=== PATIENT | male | born 1955 | race Caucasian/White ===

== ENCOUNTER → 2016-04-13 | Day surgery (SDC) | payer BC ==
[2016-04-02 13:19] VITALS: Ht 189.2 cm; Wt 131.4 kg
[~2016-04-13] VITALS: Ht 189.2 cm; Wt 131.4 kg
[~2016-04-13] MED LIST: ALLO300T2 PO; ATROPINE SULFATE 0.1 MG/ML 5ML SYR IV PRN; BUPIVACAINE/EPINEPHRINE 0.5% MPF 1:200,000 30 ML VIAL ONE; CEFAZOLIN 2000 MG/60 ML D5W IV SCH; CETI10TA99 PO; DEXAMETHASONE SOD INJ 4 MG/ML VIAL IV PRN; DEXAMETHASONE SOD INJ 4 MG/ML VIAL ONE; DOXA4TAB2 PO; EpHEDrine SULFATE INJ 50 MG/ML AMP IV PRN; FENTANYL CITRATE INJ 50 MCG/1 ML 2 ML VIAL IV PRN; FENTANYL CITRATE INJ 50 MCG/1 ML 2 ML VIAL ONE; FLUT0.15 NAE; GLUC10007 PO; GLYCOPYRROLATE INJ 0.2 MG/ML VIAL ONE; HEPARIN SOD 5000 UNIT/0.5 ML CARP SQ SCH; HYDR-5688 PO; HYDROCODONE/ACETAMOPHEN 5/325MG TAB PO PRN; IBUPROFEN 600 MG TAB PO PRN; INDO-24 PO; KETOROLAC TROMETHAMINE 30 MG/ML VIAL IV. PRN; LABETALOL HCL IV 5 MG/ML 20ML IV PRN; LACTATED RINGER'S 1000ML 1,000 ML IV SCH; LIDOCAINE HCL 1% 20 ML VIAL ONE; LIDOCAINE HCL 2% 2 ML VIAL (20MG/ML) ONE; LOVA40TA4 PO; METF500T5 PO; METOCLOPRAMIDE HCL INJ 5 MG/ML 2 ML VIAL IV PRN; MIDAZOLAM HCL 1 MG/ML 2ML VIAL ONE; MULT-506 PO; MoRPHine SULFATE 10 MG/ML CARP/VIAL IV PRN; MoRPHine SULFATE 4 MG/ML 1 ML CARP\\VIAL IV PRN; ONDANSETRON INJ 2 MG/ML 2 ML VIAL IV PRN; ONDANSETRON INJ 2 MG/ML 2 ML VIAL ONE; OXYCODONE/ACETAMINOPHEN 5-325 TAB PO PRN; PHENYLEPHRINE 100MCG/ML 5ML SYR IV PRN; PHENYLEPHRINE HCL INJ 10 MG/ML VIAL ONE; PRLSR20 PO; PROPOFOL IV EMULSION 10 MG/ML 20 ML VIAL IV ONE; ROCURONIUM BROMIDE 10 MG/ML 5 ML VIAL ONE; SODIUM CHLORIDE 0.9% 1000ML 1,000 ML IV SCH; TRMO2580 TOP
--- NOTE | 2016-04-13 11:11 | History & Physical Bridge Note ---
H&P Re-Evaluation Bridge Note: I have examined the patient, reviewed the History & Physical and in the interval since the performance of the History & Physical I have noted the following changes of clinical significance: No changes noted
--- NOTE | 2016-04-13 11:14 | Discharge Instructions-SurgCtr ---
Discharge Instructions Visit Reason for Visit: Umbilical Hernia Discharge Discharge Diagnosis / Problem: umbilical hernia Discharge Goals Goal(s): Decrease discomfort, Improve function Medications Stopped Medications Name(s): Metformin stopped. Last dose saturday04/10/16 Activity Recommendations Activity Limitations: as noted below Lifting Limitations: no more than 10 pounds Exercise/Sports Limitations: until after follow-up appointment May Resume Sexual Activity: after follow-up appointment Shower/Bathe: tomorrow Anesthesia . Post Anesthesia Instructions: If you have had General Anesthesia or IV Sedation: * Do not drive today. * Resume driving when surgeon permits. * Do not make important decisions or sign legal documents today. * Call surgeon for: 1. Temperature elevations greater than 101 degrees F. 2. Uncontrollable pain. 3. Excessive bleeding. 4. Persistent nausea and vomiting. 5. Medication intolerance (nausea, vomiting or rash). * For nausea and vomiting use only clear liquids such as: tea, soda, bouillon until nausea subsides, then gradually increase diet as tolerated. * If you have any concerns or questions, call your surgeon's office. If physician is unavailable and it is an emergency, call 911 or go to the nearest emergency room. . Instructions / Follow-Up Instructions / Follow-Up follow up Dr. Schrader in 1-2 weeks. Diet Recommendations Home Diet: resume previous diet Pending Studies Studies pending at discharge: no Medical Emergencies . Who to Call and When: Medical Emergencies: If at any time you feel your situation is an emergency, please call 911 immediately. . Non-Emergent Contact Non-Emergency issues call your: Primary Care Provider, Surgeon Call Non-Emergent contact if: temperature is above 101, wound has increased drainage, wound has increased redness, wound has increased pain . . "Provider Documentation" section prepared by Antoine Schrader.
--- NOTE | 2016-04-13 11:15 | [facility] Operative Report ---
Operative Report Operative Date Apr 13, 2016. Pre-Operative Diagnosis umbilical hernia Post-Operative Diagnosis same Procedure(s) Performed open umbilical hernia Findings standard umbilical hernia with omentum incarcerated Anesthesia general Complication(s) None Disposition Recovery Room / PACU I attest to the content of the Intraoperative Record and any orders documented therein. Any exceptions are noted below.
[2016-04-13 13:16] VITALS: TEMP 36.6
--- NOTE | 2016-04-13 13:18 | Anesthesia Progress Nt - [facility] ---
Anesthesia Post Op Note Date & Time Apr 13, 2016 at 13:17 Vital Signs Pain Intensity: 5 Vital Signs Past 12 Hours Date Time Temp Pulse Resp B/P Pulse Ox O2 Delivery O2 Flow Rate FiO2 04/13/16 13:04 36.4 04/13/16 13:03 111/64 04/13/16 13:00 65 15 93 04/13/16 13:00 62 13 97 04/13/16 12:58 Room Air 04/13/16 12:58 104/61 04/13/16 12:55 70 22 04/13/16 12:55 71 22 100 04/13/16 12:53 109/67 04/13/16 12:49 Diffusion Mask 6 04/13/16 12:48 111/62 04/13/16 12:45 72 12 94 04/13/16 12:45 68 17 91 04/13/16 12:43 101/61 04/13/16 12:41 110/59 04/13/16 12:40 68 9 04/13/16 12:40 68 9 96 04/13/16 12:38 99/62 04/13/16 12:33 106/63 04/13/16 12:30 Room Air 04/13/16 12:30 65 14 95 04/13/16 12:30 59 22 95 04/13/16 12:28 110/65 04/13/16 12:26 107/62 04/13/16 12:25 69 10 04/13/16 12:25 69 10 92 04/13/16 12:23 96/62 04/13/16 12:18 91/59 04/13/16 12:17 98/58 04/13/16 12:15 71 15 102/62 91 04/13/16 12:15 69 14 90 04/13/16 12:10 36.8 72 16 102/62 94 Diffusion Mask 6 04/13/16 10:31 36.8 79 18 142/86 96 Room Air Notes Mental Status: alert / awake / arousable, participated in evaluation Pt Amnestic to Procedure: Yes Nausea / Vomiting: adequately controlled Pain: adequately controlled Airway Patency, RR, SpO2: stable & adequate BP & HR: stable & adequate Hydration State: stable & adequate Anesthetic Complications: no major complications apparent
[2016-04-13 14:06] VITALS: BP 120/72; PULSE 73; O2SAT 95
--- NOTE | 2016-04-13 14:18 | OPERATIVE REPORT ---
DATE OF OPERATION: 04/13/2016 PREOPERATIVE DIAGNOSIS: Symptomatic umbilical hernia. POSTOPERATIVE DIAGNOSIS: Same. PROCEDURE PERFORMED: Open umbilical hernia repair without mesh. SURGEON: Dr. Schrader. ESTIMATED BLOOD LOSS: Approximately 40 mL. COMPLICATIONS: No immediate complications. ANESTHESIA: General. The patient tolerated the procedure well. OPERATION AND FINDINGS: OPERATIVE NOTE: After informed consent was obtained, the patient was taken to the operating suite, placed in supine position. After successful intubation, the abdomen was sterilely prepped and draped in usual fashion. Curvilinear infraumbilical incision was made with 15 blade scalpel and carried down through the soft tissue using electrocautery. Once we opened the skin a small about 1.5 cm defect was palpated. I used Gabriela clamp to come around the umbilicus. I then detached the umbilicus from underlying fascia including dividing the hernia sac at the same time. This allowed us to get good margins on the fascia. There was omental incarcerated within the hernia. I freed this up using electrocautery as well as some blunt finger dissection. When we did this, there was some bleeding of the omentum. I had to clamp this and tie it off with a 2-0 Vicryl tie. Once we did this, there was adequate hemostasis. We dunked the omentum back down into the abdominal cavity. Thorough irrigation was performed. Because of the size of the defect, I decided it would not be necessary to place the mesh. I used a #1 Ethibond in an interrupted [id number] fashion to primarily close the defect. It was relatively tension free. I then tacked the umbilicus back to the underlying fascia using 0 Vicryl. Soft tissue was irrigated and closed using 2-0 Vicryl for the deep layers and 4-0 Monocryl for the skin. Marcaine was injected around the incisions for postoperative analgesia. Skin glue and a sterile dressing were applied. The patient was awakened, extubated, and transferred to recovery in stable condition. I attest to the content of the Intraoperative Record and any orders documented therein. Any exceptio ns are noted below.
== END | disposition home or self-care (01) ==
LOC: X.SURG 09:43
PROVIDERS: ATTEND Surgery
DX: K42.0 Umbilical hernia with obstruction, without gangrene (principal); R79.89 Other specified abnormal findings of blood chemistry; E11.9 Type 2 diabetes mellitus without complications; E78.00 Pure hypercholesterolemia, unspecified; N40.0 Benign prostatic hyperplasia without lower urinary tract symptoms

== ENCOUNTER → 2016-07-24 | Outpatient (CLI) | payer BC ==
[~2016-07-24] MED LIST changes: -ATROPINE SULFATE 0.1 MG/ML 5ML SYR IV PRN; -BUPIVACAINE/EPINEPHRINE 0.5% MPF 1:200,000 30 ML VIAL ONE; -CEFAZOLIN 2000 MG/60 ML D5W IV SCH; -DEXAMETHASONE SOD INJ 4 MG/ML VIAL IV PRN; -DEXAMETHASONE SOD INJ 4 MG/ML VIAL ONE; -EpHEDrine SULFATE INJ 50 MG/ML AMP IV PRN; -FENTANYL CITRATE INJ 50 MCG/1 ML 2 ML VIAL IV PRN; -FENTANYL CITRATE INJ 50 MCG/1 ML 2 ML VIAL ONE; -GLYCOPYRROLATE INJ 0.2 MG/ML VIAL ONE; -HEPARIN SOD 5000 UNIT/0.5 ML CARP SQ SCH; -HYDROCODONE/ACETAMOPHEN 5/325MG TAB PO PRN; -IBUPROFEN 600 MG TAB PO PRN; -KETOROLAC TROMETHAMINE 30 MG/ML VIAL IV. PRN; -LABETALOL HCL IV 5 MG/ML 20ML IV PRN; -LACTATED RINGER'S 1000ML 1,000 ML IV SCH; -LIDOCAINE HCL 1% 20 ML VIAL ONE; -LIDOCAINE HCL 2% 2 ML VIAL (20MG/ML) ONE; -METOCLOPRAMIDE HCL INJ 5 MG/ML 2 ML VIAL IV PRN; -MIDAZOLAM HCL 1 MG/ML 2ML VIAL ONE; -MoRPHine SULFATE 10 MG/ML CARP/VIAL IV PRN; -MoRPHine SULFATE 4 MG/ML 1 ML CARP\\VIAL IV PRN; -ONDANSETRON INJ 2 MG/ML 2 ML VIAL IV PRN; -ONDANSETRON INJ 2 MG/ML 2 ML VIAL ONE; -OXYCODONE/ACETAMINOPHEN 5-325 TAB PO PRN; -PHENYLEPHRINE 100MCG/ML 5ML SYR IV PRN; -PHENYLEPHRINE HCL INJ 10 MG/ML VIAL ONE; -PROPOFOL IV EMULSION 10 MG/ML 20 ML VIAL IV ONE; -ROCURONIUM BROMIDE 10 MG/ML 5 ML VIAL ONE; -SODIUM CHLORIDE 0.9% 1000ML 1,000 ML IV SCH
[2016-07-24 12:18] LABS: ALT/SGPT 74 U/L (12-78); AST/SGOT 64 U/L (15-37); BASO % 0.8 %; BASO ABS # 0.03 K/uL (0-0.2); BLOOD UREA NITROGEN 16 mg/dl (7-18); BUN/CREATININE RATIO 15.5 (10-20); CALCIUM 9.6 mg/dl (8.5-10.1); CARBON DIOXIDE 29 mmol/L (21-32); CHLORIDE 106 mmol/L (98-107); COMPLETE YES; EOS % 9.5 %; GLUCOSE 120 mg/dl (70-99); HEMATOCRIT 40.3 % (42-52); IG% 0.3 %; LYMPH % 34.2 %; LYMPH ABS # 1.22 K/uL (1.2-3.4); MEAN CORPUSCULAR HEMOGLOBIN 32.9 pg (25-34); MEAN CORPUSCULAR HGB CONC 32.3 g/dl (32-36); MEAN PLATELET VOLUME 11.1 fL (7.4-10.4); NEUT % 50.2 %; PLATELET COUNT 139 K/uL (130-400); POTASSIUM 4.7 mmol/L (3.5-5.1); RED BLOOD COUNT 3.95 M/uL (4.7-6.1); SODIUM 141 mmol/L (136-145); WHITE BLOOD COUNT 3.57 K/uL (4.8-10.8)
[2016-07-24 12:20] LABS: ALB/GLOB RATIO 0.7 (0.9-2); ALKALINE PHOSPHATASE 128 U/L (45-117)
[2016-07-24 12:24] LABS: ESTIMATED AVERAGE GLUCOSE 120 mg/dl; HA1C FLAG Normal (Normal)
[2016-07-26 08:16] LABS: ALBUMIN 3.6 G/DL (3.8-4.8); IMMUNOFIXATION IGA SERUM 391 MG/DL (81-463); IMMUNOFIXATION IGG SERUM 2193 MG/DL (694-1618); IMMUNOFIXATION IGM SERUM 102 MG/DL (48-271); TOTAL PROTEIN 7.8 G/DL (6.2-8.3)
== END | disposition home or self-care (01) ==
LOC: C.LABBFT 09:31
PROVIDERS: ATTEND Internal Medicine Hematology & Oncology
DX: D61.818 Other pancytopenia (principal)

== ENCOUNTER → 2016-10-12 | Day surgery (SDC) | payer BC ==
[2016-10-02 08:38] VITALS: Ht 189.2 cm; Wt 127.3 kg
[~2016-10-12] VITALS: Ht 189.2 cm; Wt 127.3 kg
[~2016-10-12] MED LIST changes: -HYDR-5688 PO; -INDO-24 PO; +LIDOCAINE HCL 2% 2 ML VIAL (20MG/ML) ONE; +PROPOFOL IV EMULSION 10 MG/ML 20 ML VIAL IV ONE; +SODIUM CHLORIDE 0.9% 500ML 500 ML IV ONE; -TRMO2580 TOP
[2016-10-12 08:29] VITALS: TEMP 37.1
--- NOTE | 2016-10-12 08:39 | Endo History and Physical ---
History & Physical Date of Service: Oct 12, 2016. Chief Complaint: f/u tubular adenoma Referring Physician: Dr. sada Polk,and Dr. Jeffrey Adams History of Present Illness 61 yo CM who presents for colonoscopy secondary to history of colon polyps. Past Surgical History Hx Cardiac Surgery: No Hx Internal Defibrillator: No Hx Pacemaker: No Hx Abdominal Surgery: Yes (APPY, UMBILICAL HERNIA REPAIR) Hx of Implantable Prosthesis: No Hx Post-Op Nausea and Vomiting: No Hx Cancer Surgery: No Hx Thoracic Surgery: No Hx Orthopedic: Yes (LT ACHILLES TENDON REPAIR) Hx Urinary Tract Surgery: No Family History Colon CA Social History Smoking Status: Former Smoker Hx Substance Use: No Hx Alcohol Use: Yes (OCCASIONAL) Allergies Coded Allergies: Simvastatin (Verified Allergy, Unknown, GI UPSET, 10/02/16) Current Medications Reported Home Medications Medications Dose Route/Sig Max Daily Dose Days Date Category Flonase Allergy Relief (Fluticasone Propionate (Nasal)) 50 Mcg/Act Spr 2 [place] DENICE DAILY PRN 10/02/16 Reported Glucosamine (Glucosamine Sulfate) 1,000 Mg Tab 1,500 Mg PO DAILY 04/13/16 Reported Multivitamin (Multivitamins) Tab 1 Tab PO DAILY 04/13/16 Reported Zyrtec Allergy (Cetirizine Hcl) 10 Mg Tab 1 Tab PO DAILY PRN 04/02/16 Reported Mevacor (Lovastatin) 40 Mg Tab 2 Tabs PO HS 04/02/16 Reported Prilosec (Omeprazole) 20 Mg Capcr 20 Mg PO NOON 04/02/16 Reported Zyloprim (Allopurinol) 300 Mg Tab 300 Mg PO NOON 04/02/16 Reported Glucophage Er (Metformin HCl) 500 Mg Tab 2 Tab PO BID 04/02/16 Reported Cardura (Doxazosin Mesylate) 4 Mg Tab 4 Mg PO HS 04/02/16 Reported Vital Signs Weight (Kilograms): 127.27 Height (Feet): 6 Height (Inches): 2.5 Date Time Temp Pulse Resp B/P (MAP) Pulse Ox O2 Delivery O2 Flow Rate FiO2 10/12/16 08:29 37.1 87 20 137/78 (97) 94 Room Air Physical Exam General Appearance: WD/WN, no apparent distress Respiratory/Chest: Auscultation: breath sounds normal Cardiovascular: Heart Auscultation: RRR Abdomen: Bowel Sounds: normal Inspection & Palpation: soft, non-distended, no tenderness, guarding & rebound Assessment and Plan Assessment: 61 yo CM who presents for colonoscopy secondary to history of colon polyps. Plan: Proceed with colonoscopy.
--- NOTE | 2016-10-12 09:25 | Anesthesiology Progress Note ---
Anesthesia Post Op Note Date & Time Oct 12, 2016 at 09:24 Vital Signs Pain Intensity: 0 Vital Signs Past 12 Hours Date Time Temp Pulse Resp B/P (MAP) Pulse Ox O2 Delivery O2 Flow Rate FiO2 10/12/16 08:29 37.1 87 20 137/78 (97) 94 Room Air Notes Mental Status: alert / awake / arousable, participated in evaluation Pt Amnestic to Procedure: Yes Nausea / Vomiting: adequately controlled Pain: adequately controlled Airway Patency, RR, SpO2: stable & adequate BP & HR: stable & adequate Hydration State: stable & adequate Anesthetic Complications: no major complications apparent
--- NOTE | 2016-10-12 09:26 | Discharge Instructions ---
Endoscopy Patient Instructions Date / Procedure(s) Performed Oct 12, 2016. Colonoscopy Allergy Information Coded Allergies: Simvastatin (Verified Adverse Reaction, Unknown, GI UPSET, 10/12/16) Discharge Date / Findings Oct 12, 2016. Colon polyps Internal hemorrhoids Medication Instructions Stopped Medication(s): took Metformin yesterday OK to resume all medications today as prescribed Reported Home Medications Medications Dose Route/Sig Max Daily Dose Days Date Category Flonase Allergy Relief (Fluticasone Propionate (Nasal)) 50 Mcg/Act Spr 2 [place] DENICE DAILY PRN 10/02/16 Reported Glucosamine (Glucosamine Sulfate) 1,000 Mg Tab 1,500 Mg PO DAILY 04/13/16 Reported Multivitamin (Multivitamins) Tab 1 Tab PO DAILY 04/13/16 Reported Zyrtec Allergy (Cetirizine Hcl) 10 Mg Tab 1 Tab PO DAILY PRN 04/02/16 Reported Mevacor (Lovastatin) 40 Mg Tab 2 Tabs PO HS 04/02/16 Reported Prilosec (Omeprazole) 20 Mg Capcr 20 Mg PO NOON 04/02/16 Reported Zyloprim (Allopurinol) 300 Mg Tab 300 Mg PO NOON 04/02/16 Reported Glucophage Er (Metformin HCl) 500 Mg Tab 2 Tab PO BID 04/02/16 Reported Cardura (Doxazosin Mesylate) 4 Mg Tab 4 Mg PO HS 04/02/16 Reported Provider Instructions Activity Restrictions - No exercising or heavy lifting for 24 hours. - Do not drink alcohol the day of the procedure. - Do not drive a car or operate machinery until the day after the procedure. - Do not make any important decisions or sign important papers in 24 hours after the procedure. Following Day: - Return to full activity which may include returning to work/school. Diet Start your diet with liquids and light foods (jello, soup, juice, toast). Then eat your usual diet if not nauseated. Treatment For Common After Affects For mild abdominal pain, bloating, or excessive gas: - Rest - Eat lightly - Lie on right side Follow-Up Information Follow-up with Dr. sada Polk,and Dr. Jeffrey Adams as scheduled Anesthesia Information What You Should Know You have had a procedure that required some medicine to reduce anxiety and discomfort. This treatment is called moderate sedation. After receiving the treatment, you may be sleepy, but you will be able to breathe on your own. The effects of the treatment may last for several hours. Follow these instructions along with Activity/Diet recommendations noted above: * Do NOT do anything where dizziness or clumsiness would be dangerous. * Rest quietly at home today, then you can be up and about tomorrow. * Have a responsible person stay with you the rest of today. * You may have had an I.V. today. If so, you may take the dressing off later today. Recommendations Call your doctor if: * Trouble breathing * Continuous vomiting for more than 24 hours * Temperature above 101 degrees * Severe abdominal pain or bloating * Pain not relieved by pain medicine ordered * There is increased drainage or redness from any incision * A large amount of rectal bleeding greater than 2-3 tablespoons. (If you had a polyp/s removed or have hemorrhoids, a small amount of blood - from the rectum is to be expected.) * You have any unanswered questions or concerns. IN THE EVENT OF A SERIOUS EMERGENCY, GO TO THE NEAREST EMERGENCY ROOM Your discharge instructions were prepared by provider Andres Patel. Patient Instructions Signature Page Arnoldo Colon Patient (or Guardian) Signature/Date: I have read and understand the instructions given to me by my caregivers. Caregiver/RN/Doctor Signature/Date: The above-named patient and/or guardian has received patient instructions on this date. + Original Patient Signature Page (only) stays with chart. Please make copy for patient.
[2016-10-12 09:39] VITALS: BP 131/78; PULSE 67; O2SAT 97
--- NOTE | 2016-10-12 09:41 | GI REPORT ---
Procedure Date: 10/12/2016 8:48 AM Procedure: Colonoscopy Indications: High risk colon cancer surveillance: Personal history of colonic polyps Medicines: Monitored Anesthesia Care Complications: No immediate complications. Estimated Blood Loss: Estimated blood loss: none. Procedure: Pre-Anesthesia Assessment: - Prior to the procedure, a History and Physical was performed, and patient medications and allergies were reviewed. The patient's tolerance of previous anesthesia was also reviewed. The risks and benefits of the procedure and the sedation options and risks were discussed with the patient. All questions were answered, and informed consent was obtained. Prior Anticoagulants: The patient has taken no previous anticoagulant or antiplatelet agents. ASA Grade Assessment: III - A patient with severe systemic disease. After reviewing the risks and benefits, the patient was deemed in satisfactory condition to undergo the procedure. After I obtained informed consent, the scope was passed under direct vision. Throughout the procedure, the patient's blood pressure, pulse, and oxygen saturations were monitored continuously. The scope was introduced through the anus and advanced to the terminal ileum. The colonoscopy was performed without difficulty. The patient tolerated the procedure well. The quality of the bowel preparation was good. The terminal ileum, ileocecal valve, appendiceal orifice, and rectum were photographed. Findings: Two sessile polyps were found in the transverse colon and in the ascending colon. The polyps were 3 to 4 mm in size. These polyps were removed with a cold snare. Resection and retrieval were complete. Non-bleeding internal hemorrhoids were found during retroflexion. The hemorrhoids were small. Impression: - Two 3 to 4 mm polyps in the transverse colon and in the ascending colon, removed with a cold snare. Resected and retrieved. - Non-bleeding internal hemorrhoids. Recommendation: - Resume previous diet. - Continue present medications. - Repeat colonoscopy for surveillance based on pathology results. - Return to primary care physician as previously scheduled. Andres Patel DO 10/12/2016 9:40:16 AM This report has been signed electronically. Note Initiated On: 10/12/2016 8:48 AM I attest to the content of the Intraoperative Record and orders documented therein, exceptions below
== END | disposition home or self-care (01) ==
LOC: C.GI 08:09
PROVIDERS: ATTEND Internal Medicine
DX: Z12.11 Encounter for screening for malignant neoplasm of colon (principal); D12.3 Benign neoplasm of transverse colon; D12.2 Benign neoplasm of ascending colon; K64.8 Other hemorrhoids; Z86.010 Personal history of colon polyps; Z90.89 Acquired absence of other organs; F17.200 Nicotine dependence, unspecified, uncomplicated; J45.909 Unspecified asthma, uncomplicated; E78.5 Hyperlipidemia, unspecified; K21.9 Gastro-esophageal reflux disease without esophagitis; E11.9 Type 2 diabetes mellitus without complications; Z79.84 Long term (current) use of oral hypoglycemic drugs

== ENCOUNTER → 2017-01-30 | Outpatient (CLI) | payer BC ==
[~2017-01-30] MED LIST changes: -LIDOCAINE HCL 2% 2 ML VIAL (20MG/ML) ONE; -PROPOFOL IV EMULSION 10 MG/ML 20 ML VIAL IV ONE; -SODIUM CHLORIDE 0.9% 500ML 500 ML IV ONE
[2017-01-30 12:17] LABS: BASO % 0.9 %; BASO ABS # 0.03 K/uL (0-0.2); COMPLETE YES; EOS % 5.2 %; HEMATOCRIT 40.1 % (42-52); IG% 0.3 %; LYMPH % 36.2 %; LYMPH ABS # 1.19 K/uL (1.2-3.4); MEAN CELL VOLUME 102.3 fL (80-100); MEAN CORPUSCULAR HEMOGLOBIN 33.7 pg (25-34); MEAN CORPUSCULAR HGB CONC 32.9 g/dl (32-36); MEAN PLATELET VOLUME 11.6 fL (7.4-10.4); MONO % 5.2 %; NEUT % 52.2 %; PLATELET COUNT 119 K/uL (130-400); RED BLOOD COUNT 3.92 M/uL (4.7-6.1); WHITE BLOOD COUNT 3.29 K/uL (4.8-10.8)
[2017-01-30 12:45] LABS: ALT/SGPT 61 U/L (12-78); BLOOD UREA NITROGEN 20 mg/dl (7-18); BUN/CREATININE RATIO 19.5 (10-20); CALCIUM 9.2 mg/dl (8.5-10.1); CARBON DIOXIDE 27 mmol/L (21-32); CHLORIDE 105 mmol/L (98-107); CHOLESTEROL 150 mg/dl (0-200); CREATININE 1.04 mg/dl (0.60-1.40); GLUCOSE 109 mg/dl (70-99); SODIUM 141 mmol/L (136-145)
[2017-01-30 12:47] LABS: URINE APPEARANCE CLEAR (CLEAR); URINE BILIRUBIN NEG (NEG); URINE COLOR DK YELLOW; URINE NITRITE NEG (NEG); URINE SPECIFIC GRAVITY 1.027 (1.000-1.030); UROBILINOGEN NEG (NEG); ZZUR CULT IF INDIC CLEAN CATCH NO
[2017-01-30 12:48] LABS: MANUAL MICROSCOPIC REQUIRED? NO; REVIEW REQ? NO
[2017-01-30 12:50] LABS: ESTIMATED AVERAGE GLUCOSE 114 mg/dl; HA1C FLAG Normal (Normal)
[2017-01-30 12:52] LABS: ALB/GLOB RATIO 0.7 (0.9-2); ALKALINE PHOSPHATASE 128 U/L (45-117); AST/SGOT 68 U/L (15-37); CHOLESTEROL/HDL RATIO 2.2; HDL CHOLESTEROL 67 mg/dl; LDL CHOLESTEROL CALCULATED 68 mg/dl; PROSTATE SPECIFIC ANTIGEN 0.325 ng/ml (0.000-4.000); TRIGLYCERIDES 74 mg/dl (0-150); URIC ACID 4.1 mg/dl (2.6-7.2); VERY LOW DENSITY LIPOPROT CALC 15 mg/dl
[2017-01-30 13:02] LABS: RATIO 3.6 mcg/mg (0-30.0)
== END | disposition home or self-care (01) ==
LOC: C.LABBFT 09:23
PROVIDERS: ATTEND Physician Assistant Medical
DX: E11.9 Type 2 diabetes mellitus without complications (principal); D61.818 Other pancytopenia; N40.0 Benign prostatic hyperplasia without lower urinary tract symptoms; E78.00 Pure hypercholesterolemia, unspecified; M10.9 Gout, unspecified

== ENCOUNTER → 2017-02-13 | Outpatient (CLI) | payer BC ==
[2017-02-18 05:31] LABS: CREATININE UR 138 MG/DL (20-370)
== END | disposition home or self-care (01) ==
LOC: C.LABBFT 11:45
PROVIDERS: ATTEND Internal Medicine
DX: R79.89 Other specified abnormal findings of blood chemistry (principal); R77.1 Abnormality of globulin

== ENCOUNTER → 2017-08-06 | Outpatient (CLI) | payer OTHER ==
[2017-08-06 12:19] LABS: BASO ABS # 0.03 K/uL (0-0.2); EOS % 4.4 %; EOS ABS # 0.13 K/uL (0-0.5); HEMATOCRIT 37.9 % (42-52); HEMOGLOBIN 12.8 g/dL (14.0-18.0); LYMPH % 38.1 %; LYMPH ABS # 1.12 K/uL (1.2-3.4); MEAN CELL VOLUME 101.1 fL (80-100); MEAN CORPUSCULAR HEMOGLOBIN 34.1 pg (25-34); MEAN CORPUSCULAR HGB CONC 33.8 g/dl (32-36); MEAN PLATELET VOLUME 11.1 fL (7.4-10.4); MONO % 5.8 %; MONO ABS # 0.17 K/uL (0.11-0.59); NEUT % 50.7 %; NEUT ABS # 1.49 K/uL (1.4-6.5); PLATELET COUNT 118 K/uL (130-400); RED CELL DISTRIBUTION WIDTH CV 14.5 % (11.5-14.5); RED CELL DISTRIBUTION WIDTH SD 53.6 fL (36.4-46.3); WHITE BLOOD COUNT 2.94 K/uL (4.8-10.8)
[2017-08-06 12:40] LABS: ALBUMIN 3.5 gm/dl (3.4-5.0); ALKALINE PHOSPHATASE 126 U/L (45-117); ALT/SGPT 54 U/L (12-78); AST/SGOT 65 U/L (15-37); BLOOD UREA NITROGEN 17 mg/dl (7-18); CALCIUM 9.4 mg/dl (8.5-10.1); CARBON DIOXIDE 28 mmol/L (21-32); CREATININE 1.07 mg/dl (0.60-1.40); GLUCOSE 95 mg/dl (70-99); POTASSIUM 4.3 mmol/L (3.5-5.1); SODIUM 138 mmol/L (136-145); TOTAL PROTEIN 8.2 gm/dl (6.4-8.2)
[2017-08-06 12:59] LABS: HEMOGLOBIN A1C 5.5 % (4.5-5.6)
== END | disposition home or self-care (01) ==
LOC: C.LABBFT 09:34
PROVIDERS: ATTEND Internal Medicine
DX: D61.818 Other pancytopenia (principal); R94.5 Abnormal results of liver function studies; E11.9 Type 2 diabetes mellitus without complications

== ENCOUNTER 2018-12-09 19:00 | Inpatient (IN) ==
[2018-12-09] MEDS ORDERED: SODIUM CHLORIDE 0.9% 250 ML IV PRN (19:12)
[2018-12-09] MEDS ORDERED: SODIUM CHLORIDE 0.9% 1000ML 1,000 ML IV SCH (19:15)
[2018-12-09] MEDS ORDERED: PANTOprazole 80 MG in DEXTROSE 5% 100 ML IV ONE (19:30)
[2018-12-09 19:43] LABS: iSTAT Creatinine 0.9 mg/dl (0.6-1.3); iSTAT Hemoglobin 11.2 g/dl (14.0-18.0); iSTAT Ionized Calcium 1.2 mmol/l (1.12-1.32); iSTAT Potassium 4.2 mEq/L (3.3-5.0)
[2018-12-09] MEDS: PANTOprazole 40 MG in DEXTROSE 5% 100 ML IV SCH (19:43)
[2018-12-09 19:46] LABS: INR 1.3 (0.9-1.1); Partial Thromboplastin Ratio 0.9; Partial Thromboplastin Time 24.4 Seconds (21.0-31.0); Prothrombin Time 13.1 Seconds (9.0-12.0)
[2018-12-09 19:51] LABS: Hematocrit (blood only) 33.9 % (42-52); Hemoglobin 11.4 g/dL (14.0-18.0); Mean Corpuscular Hemoglobin 35.3 pg (25-34); Mean Corpuscular Hgb Conc 33.6 g/dL (32-36); RDW Coefficient of Variation 14.9 % (11.5-14.5); Red Blood Count 3.23 M/uL (4.7-6.1); White Blood Count 4.08 K/uL (4.8-10.8)
[2018-12-09 19:56] LABS: Basophils # (auto) 0.02 K/uL (0-0.2); Basophils % (auto) 0.5 %; Eosinophils # (auto) 0.22 K/uL (0-0.5); Eosinophils % (auto) 5.4 %; Immature Granulocytes # (auto) 0.01 K/uL (0.00-0.02); Immature Granulocytes % (auto) 0.2 %; Lymphocytes # (auto) 1.24 K/uL (1.2-3.4); Lymphocytes % (auto) 30.4 %; Mean Platelet Volume 10.7 fL (7.4-10.4); Monocytes # (auto) 0.29 K/uL (0.11-0.59); Monocytes % (auto) 7.1 %; Neutrophils % (auto) 56.4 %; Platelet Count 92 K/uL (130-400)
[2018-12-09 19:57] LABS: Alanine Aminotransferase 53 U/L (12-78); Albumin Level 2.9 gm/dl (3.4-5.0); Aspartate Aminotransferase 58 U/L (15-37); BUN Creatinine Ratio 29.2 (10-20); Blood Urea Nitrogen 30 mg/dl (7-18); Calcium 9.3 mg/dl (8.5-10.1); Carbon Dioxide 21 mmol/L (21-32); Chloride 109 mmol/L (98-107); Creatinine Clr Calc Pharmacy 100.8 ml/min; Est GFR (African American) 86.9; Glucose 107 mg/dl (70-99); Potassium 4.2 mmol/L (3.5-5.1); Sodium 142 mmol/L (136-145)
[2018-12-09 20:02] LABS: Albumin Globulin Ratio 0.7 (0.9-2); Alkaline Phosphatase 142 U/L (45-117); Bilirubin,Total 1.5 mg/dl (0.2-1); Globulin 4.4 gm/dl (2.5-4.0); Total Protein 7.3 gm/dl (6.4-8.2); Troponin I < 0.015 ng/ml (0-0.045)
[2018-12-09] MEDS ORDERED: IOVERSOL 100ml IV PRN (20:15)
[2018-12-09] MEDS ORDERED: [UNRECOGNIZED DRUG - OTHER] IV STA (20:22)
--- NOTE | 2018-12-09 20:29 | Gastrointestinal Consultation ---
Date of Consultation December 09, 2018 Assessment & Plan (1) Hematemesis: differential includes esophageal varices vs. PUD vs. malignancy vs. arpit salgado tear vs. other etiology. wet read on CT appears to indicate cirrhosis and varices Plan: 1. IV erythromycin 250 mg x 1 now 2. Octreotide gtt 3. NPO 4. plan for egd to further evaluate and treat 5.risks/benefits and procedure discussed with patient, who agrees to proceed History of Present Illness Reason for Consultation: Gi bleed, hematemesis History of Present Illness 63 yo male with hx DM2, GERD, gout, HLD, NAFLD who presents with hematemesis tonight. Patient reportedly had 6 episodes of bright red emesis, including an episode in triage. He notes that he wasn't feeling well the last few days with dizziness and lightheadedness on/off. Today he developed the hematemesis, never had this before. Denies alcohol abuse, NSAID abuse, prior PUD although he notes GERD and having an EGD for this in the 70s. He reports burning umbilical abdominal pain, 3/10, nonradiating, without exacerbating or alleviating factors. Labs and vital signs reviewed, imaging reviewed. Noted to be anemic and tachycardic with an elevated BUN. Allergies Allergy/AdvReac Type Severity Reaction Status Date / Time simvastatin AdvReac Unknown GI UPSET Verified 09/01/18 09:58 Home Medications Home Medications Medication Instructions Recorded Confirmed Type blood sugar diagnostic strips #400 ea 08/21/18 Rx cetirizine 10 mg tablet 10 mg PO DAILY PRN tab 09/01/18 09/01/18 History fluticasone propionate 50 2 sprays INTNAS DAILY #16 gm 09/01/18 09/01/18 Rx mcg/actuation nasal spray,suspension glucosam 500 mg-chondroit 66.7 2 tab PO DAILY #30 tab 09/01/18 09/01/18 Rx mg-msm 500 mg-boron 2 mg-hyaluro tablet indomethacin 50 mg capsule 50 mg PO TID PRN #60 cap 09/01/18 09/01/18 Rx metformin ER 500 mg 1,000 mg PO BID #360 tab 09/01/18 09/01/18 History tablet,extended release 24 hr methylprednisolone 4 mg tablets in 4 mg PO .COMPLEX #21 ea 06/17/19 06/17/19 Rx a dose pack multivitamin tablet 1 tab PO DAILY #30 tab 09/01/18 09/01/18 Rx triamcinolone acetonide 0.1 % 1 appln TOP BID #30 gm 09/01/18 09/01/18 Rx topical cream allopurinol 300 mg tablet 300 mg PO DAILY #90 tab 12/01/18 Rx doxazosin 4 mg tablet 4 mg PO DAILY #90 tab 12/01/18 Rx lovastatin 40 mg tablet 80 mg PO DAILY #90 tab 12/01/18 Rx omeprazole 20 mg capsule,delayed 20 mg PO DAILY PRN #90 cap 12/01/18 Rx release Patient History Medical History Dermatitis (Acute) Cellulitis (Acute) Cat bite (Acute) Acute sinusitis (Acute) Abnormal liver function test (Acute) BPH with obstruction/lower urinary tract symptoms (Acute) Diabetes mellitus (Chronic) GERD without esophagitis (Chronic) Gout, joint (Chronic) Hypercholesterolemia (Chronic) Hyperglobulinemia (Acute) Internal hemorrhoids (Acute) Nonalcoholic fatty liver disease (Chronic) Obesity (Acute) Pancytopenia (Acute) Tubular adenoma of colon (Acute) Social History Preferred Language: Macanese Feels Safe at Home: Yes Smoking Status: Never smoker Review of Systems Constitutional: no fever, no chills and no weight loss Eyes: as per Subjective / HPI Ear, Nose, Mouth, Throat: as per Subjective / HPI Respiratory: no dyspnea and no dyspnea on exertion Cardiovascular: no chest pain and no palpitations Gastrointestinal: as per Subjective / HPI Musculoskeletal: no joint pain and no swelling Integumentary: no rash and no lesions Neurologic: no numbness and no paresthesia Psychiatric: no depression and no anxiety Endocrine: no fatigue Hematologic / Lymphatic: no easy bleeding and no easy bruising Physical Exam Constitutional: WD/WN, vitals as above Eyes: EOM intact bilaterally Neck: normal visual inspection Respiratory: normal respiratory effort, lungs clear to auscultation Cardiovascular: RRR, no murmur, no edema Gastrointestinal (Abdomen): Inspection/Auscultation: abdomen normal to inspection; abdomen not distended Percussion/Palpation: abdomen soft; abdomen nontender and no hepatosplenomegaly Musculoskeletal: Extremities: no cyanosis Gait: normal gait Skin: no rashes, warm and dry Neurologic: moves all extremities Psychiatric: A+Ox3, euthymic affect Results & Data Vital Signs (Past 12 Hours) Vital Signs Temp Pulse Resp BP Pulse Ox 12/09/18 19:05 36.5 C 110 H 20 123/71 96 PG Care Time/CCT Total # of Minutes Spent Total Time Spent with Patient: Total time spent is greater than 50% in coordination of care (as documented) at patient's floor/unit and/or counseling patient:
[2018-12-09] MEDS ORDERED: OCTREOTIDE ACETATE 50 MCG in SYRINGE 9.5 ML IV STA (20:46)
--- NOTE | 2018-12-09 20:49 | CT Scan Report ---
ABDOMEN AND PELVIS CT WITH IV CONTRAST CT DOSE: 1734.89 mGy.cm HISTORY: vomiting blood w/ mid abdominal pain TECHNIQUE: Multiaxial CT images of the abdomen and pelvis were performed following the use of intrave nous contrast. A dose lowering technique was utilized adhering to the principles of ALARA. COMPARISON STUDY: Abdomen and pelvis CT 11/28/2006. FINDINGS: The lung bases are clear. No pneumoperitoneum. No pneumatosis. No fractures within the visu alized osseous structures. Small fat and fluid containing umbilical hernia. Small fat-containing righ t inguinal hernia. Small diverticulum at the third portion of the duodenum measuring 1.5 cm. Nodular contour to the liver consistent with cirrhosis. Mild gallbladder thickening and mild surrounding radha a. There appears to be focal partial thrombus within the main portal vein best seen on image 152. Thi s is nonocclusive. The remaining portal veins and splenic vein are patent. The spleen is enlarged nura suring 16 cm in length. This is likely secondary to portal hypertension. The adrenal glands, right ki dney, and pancreas are unremarkable. There is a 3 mm stone within the lower pole the left kidney. No hydronephrosis. No retroperitoneal lymphadenopathy. Normal bladder. Trace ascites. Colonic diverticul osis. No evidence for diverticulitis. Mild thickening within the ascending colon/cecum. This is nonsp ecific but may be due to the patient's edematous state. Large varices within the left upper quadrant consistent with splenorenal varices which abut and result in mass effect along the gastric fundus. Th sreedhar varices appear to extend into the wall/lumen of the gastric fundus/cardia. No active extravasatio n of contrast identified at this time. However, there is edema/hemorrhage within the wall of the noy christopher fundus and a small amount of hyperdense material within the stomach which likely represent hemorr irvin secondary to the a ruptured varices. IMPRESSION: 1. Large varices within the left upper quadrant consistent with splenorenal varices which abut and re sult in mass effect along the gastric fundus. These varices appear to extend into the wall/lumen of t he gastric fundus/cardia. No active extravasation identified at this time. However, there is edema/he morrhage within the wall of the gastric fundus and a small amount of hyperdense material within the s tomach which likely represents hemorrhage secondary to the a ruptured varices. Immediate endoscopy is recommended for further evaluation. 2. 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 3. Trace ascites. 4. Mild thickening of the proximal colon which may be due to the patient's edematous state. 4. There is also mild gallbladder wall thickening and mild surrounding edema. This is nonspecific but also favors edema related to the patient's cirrhosis. Acute cholecystitis is considered less likely but cannot be excluded on the basis of imaging alone. 6. Left-sided nephrolithiasis. 7. These findings were discussed with Dr. Hinton at 8:43 PM on 12/09/2018. Electronically signed by: [place] Paul M.D. 12/09/2018 8:47 PM
[2018-12-09] MEDS ORDERED: OCTREOTIDE ACETATE 500 MCG in 0.9 % SODIUM CHLORIDE 100 ML IV SCH (21:00)
[2018-12-09] MEDS ORDERED: ERYTHROMYCIN 250 MG in SODIUM CHLORIDE 0.9% 250 ML IV ONE (21:00)
[2018-12-09] MEDS ORDERED: METOCLOPRAMIDE HCL INJ 5 MG/ML 2 ML VIAL IV STA (21:18)
--- NOTE | 2018-12-09 21:28 | History & Physical Report ---
Date of Service December 09, 2018 Assessment & Plan (1) Acute upper GI bleed: Patient is a 63 year old male PMHx DM2, GERD, HLD, NAFLD, Gout presenting initially with chief complaint of bloody vomiting. Acute Upper GI Bleed/Hematemesis -?Esophageal Varices, Ulceration, Keisha Ardon Tear -CT in ED showed 1) Large varices within LUQ consistent with splenorenal varices w/o active extravasation at this time. 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 -GI Consulted -IV Erythromycin 250mg x1 now -Octreotide gtt -NPO -Plan for EGD for further evaluation and treatment -Risk/benefits and procedure discussed with patient who agreed to proceed. -2 large bore IV's placed -Patient typed and screened - Blood type O+, PRBC on standby. -Hgb 11.4, trending q6h - transfuse if <7 or <8 if symptomatic. 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 GERD -Holding home medications NAFLD/Cirrhosis/Elevated BUN -BUN 29.2 on presentation, will monitor -AST 58, Alk Phos 142, Total Bili 1.5 -INR 1.3 on presentation Diabetes -Holding home medications Gout -Holding home medications -Last flare was years ago according to patient Dispo: ICU FEN: NPO DVT: SCD Code: Full (2) Hematemesis: (3) GERD without esophagitis: (4) Nonalcoholic fatty liver disease: (5) Cirrhosis: (6) Elevated BUN: (7) Diabetes mellitus: (8) Gout, joint: History of Present Illness Chief Complaint: hematemesis Primary Care Provider: Bert Polk MD Patient is a 63 year old male PMHx DM2, GERD, HLD, NAFLD, Gout presenting initially with chief complaint of bloody vomiting. Patient states that roughly 3 hours ago he was driving when he felt severely nauseous, sweaty, and lightheaded, pulled over, and vomited 2x with what appeared to be a red/dark red emesis. He and his then promptly proceeded to come to the ED for evaluation. Upon arrival he again had 3x vomiting which showed bright red blood. He notes that for the past few days he has been noticing more fatigue and lightheadedness, but has not experienced the nausea or hematemesis. He also notes that he has been having normal bowel movements with regular stool that is not black or tarry. Currently patient is laying fairly comfortably in bed and appears calm. He notes that his nausea has mostly resolved. Allergies Allergy/AdvReac Type Severity Reaction Status Date / Time simvastatin AdvReac Unknown Gastrointestinal Verified 12/09/18 21:29 Upset Home Medications Home Medications Medication Instructions Recorded Confirmed Type cetirizine 10 mg tablet 10 mg PO DAILY PRN tab 09/01/18 12/09/18 History glucosam 500 mg-chondroit 66.7 2 tab PO DAILY #30 tab 09/01/18 12/09/18 Rx mg-msm 500 mg-boron 2 mg-hyaluro tablet metformin ER 500 mg 1,000 mg PO BID #360 tab 09/01/18 12/09/18 History tablet,extended release 24 hr multivitamin tablet 1 tab PO DAILY #30 tab 09/01/18 12/09/18 Rx allopurinol 300 mg tablet 300 mg PO DAILY #90 tab 12/01/18 12/09/18 Rx doxazosin 4 mg PO QPM 12/09/18 12/09/18 History fluticasone propionate 2 sprays INTRANASAL DAILY 12/09/18 12/09/18 History indomethacin 50 mg PO TID PRN 12/09/18 12/09/18 History lovastatin 80 mg PO HS 12/09/18 12/09/18 History omeprazole 20 mg PO DAILY PRN 12/09/18 12/09/18 History Past Med/Surg History Medical History Dermatitis (Acute) Cellulitis (Acute) Cat bite (Acute) Acute sinusitis (Acute) Abnormal liver function test (Acute) BPH with obstruction/lower urinary tract symptoms (Acute) Diabetes mellitus (Chronic) GERD without esophagitis (Chronic) Gout, joint (Chronic) Hypercholesterolemia (Chronic) Hyperglobulinemia (Acute) Internal hemorrhoids (Acute) Nonalcoholic fatty liver disease (Chronic) Obesity (Acute) Pancytopenia (Acute) Tubular adenoma of colon (Acute) Social History Preferred Language: [place] Feels Safe at Home: Yes Smoking Status: Never smoker Review of Systems Constitutional: + fatigue and + weakness; no fever and no chills Eyes: no loss of peripheral vision, no tunnel vision and no worsening vision Ear, Nose, Mouth, Throat: + dizziness; no ear pain, no epistaxis and no sore throat Respiratory: no cough, no dyspnea, no dyspnea on exertion, no pain on inspiration and no wheezing Cardiovascular: + lightheadedness; no chest pain, no dyspnea, no dyspnea on exertion, no palpitations and no calf pain Gastrointestinal: + nausea (improving), + vomiting and + hematemesis; no abdominal pain, no constipation, no diarrhea/loose stools, no blood in stools and no melena Genitourinary: no dysuria, no difficulty urinating and no hematuria Musculoskeletal: + back pain (chronic low back pain) Physical Exam Constitutional: well developed, well nourished and cooperative Eyes: PERRL, conjunctivae normal, anicteric sclerae ENMT: external ear and nose normal, oropharynx normal Neck: trachea midline, no thyromegaly Respiratory: normal respiratory effort, lungs clear to auscultation Cardiovascular: Rate/Rhythm: regular rate and regular rhythm (with occasional skipped beats) Heart Sounds: normal S1 and normal S2; no murmur Gastrointestinal (Abdomen): Inspection/Auscultation: abdomen normal to inspection, normal bowel sounds and + abdominal surgical scar; no abdominal wall ecchymosis, Kehr's sign negative, Morales-Forte sign absent and no high-pitched sounds Percussion/Palpation: + abdomen tender (TTP lower R quadrant 3/10 intensity) and abdomen soft; no guarding and abdomen not firm Skin: no jaundice Neurologic: moves all extremities and awake; not confused Psychiatric: A+Ox3, euthymic affect Results & Data Vital Signs (Past 12 Hours) Vital Signs Temp Pulse Pulse Resp BP BP Pulse Ox 12/09/18 21:02 100 H 27 H 120/81 98 12/09/18 20:54 93 H 21 97 12/09/18 20:00 82 16 130/67 96 12/09/18 19:50 88 18 96 12/09/18 19:40 85 18 95 12/09/18 19:32 86 21 96 12/09/18 19:30 99 H 17 108/67 95 12/09/18 19:27 92 H 24 121/88 95 12/09/18 19:05 36.5 C 110 H 20 123/71 96 Laboratory Results Abnormal lab results 12/09/18 12/09/18 12/09/18 Range/Units 19:23 19:23 19:23 WBC 4.08 L (4.8-10.8) K/uL RBC 3.23 L (4.7-6.1) M/uL Hgb 11.4 L (14.0-18.0) g/dL POC Hgb (14.0-18.0) g/dl Hct 33.9 L (42-52) % POC Hct (42-52) % MCV 105.0 H (80-100) fL MCH 35.3 H (25-34) pg RDW Std Deviation 57.0 H (36.4-46.3) fL RDW Coeff of Abhinav 14.9 H (11.5-14.5) % Plt Count 92 L (130-400) K/uL MPV 10.7 H (7.4-10.4) fL PT 13.1 H (9.0-12.0) Seconds INR 1.3 H (0.9-1.1) Chloride 109 H (98-107) mmol/L POC Total CO2 (24-31) mEq/l Anion Gap 12.0 H (3-11) POC BUN (7-18) mg/dl BUN 30 H (7-18) mg/dl BUN/Creatinine Ratio 29.2 H (10-20) Glucose 107 H (70-99) mg/dl POC Glucose (other) (70-99) mg/dl Total Bilirubin 1.5 H (0.2-1) mg/dl AST 58 H (15-37) U/L Alkaline Phosphatase 142 H (45-117) U/L Albumin 2.9 L (3.4-5.0) gm/dl Globulin 4.4 H (2.5-4.0) gm/dl Albumin/Globulin Ratio 0.7 L (0.9-2) Crossmatch 12/09/18 12/09/18 Range/Units 19:23 19:28 WBC (4.8-10.8) K/uL RBC (4.7-6.1) M/uL Hgb (14.0-18.0) g/dL POC Hgb 11.2 L (14.0-18.0) g/dl Hct (42-52) % POC Hct 33 L (42-52) % MCV (80-100) fL MCH (25-34) pg RDW Std Deviation (36.4-46.3) fL RDW Coeff of Abhinav (11.5-14.5) % Plt Count (130-400) K/uL MPV (7.4-10.4) fL PT (9.0-12.0) Seconds INR (0.9-1.1) Chloride (98-107) mmol/L POC Total CO2 21 L (24-31) mEq/l Anion Gap (3-11) POC BUN 29 H (7-18) mg/dl BUN (7-18) mg/dl BUN/Creatinine Ratio (10-20) Glucose (70-99) mg/dl POC Glucose (other) 104 H (70-99) mg/dl Total Bilirubin (0.2-1) mg/dl AST (15-37) U/L Alkaline Phosphatase (45-117) U/L Albumin (3.4-5.0) gm/dl Globulin (2.5-4.0) gm/dl Albumin/Globulin Ratio (0.9-2) Crossmatch See Detail Medications Administered Current Inpatient Medications Sodium Chloride (Nss) 250 mls @ 15 mls/hr IV .[id number] PRN PRN Reason: For Transfusion Stop: 01/08/19 19:11 Pantoprazole Sodium 40 mg/ (Dextrose) 100 mls @ 20 mls/hr IV Q5H GEO Stop: 01/08/19 19:44 Last Admin: 12/09/18 19:43 Dose: 20 mls/hr Documented by: Octreotide Acetate 500 mcg/ (Sodium Chloride) 105 mls @ 10.5 mls/hr IV .Q10H GEO Stop: 01/08/19 20:59 Last Admin: 12/09/18 21:14 Dose: 50 mcg/hr, 10.5 mls/hr Documented by: Ioversol (Optiray 320 100ml) 92 ml IV ONCE PRN PRN Reason: Interaction Checking Stop: 12/13/18 20:14 Last Admin: 12/09/18 20:15 Dose: 92 ml Documented by: Code Status & VTE Plan Code Status Full Code VTE Prophylaxis Plan VTE Prophylaxis will be ordered: Yes Critical Care Time Critical Care Time: Yes Total Critical Care Time: 60 Supervising Physician Co-Signing Physician Notes Patient seen and examined, chart reviewed, case discussed with Dr. Spaulding and I agree with his assessment and plan as documented above. Briefly, patient is a 63yo C male with history of NAFL, remote history of gastritis as a teenager presenting with multiple episodes of hematemesis prior to arrival, witnessed hematemesis x 3 in ER as well. Patient presently with no complaints, denies abdominal pain, nausea, diarrhea On exam he is afebrile, OV=946, RR=27, blood pressure and pulse pressure WNL Gen: NAD, resting comfortably Skin: +pallor HEENT: NC/AT, PERRL, MMM, neck supple, no JVD, old blood present in winkler Heart: +S1/S2, regular with occasional missed beat Lungs: CTA Abd: +BS, soft, NT/ND, no masses/organomegaly/ascites Ext: no edema Labs and images reviewed. Significant for macrocytic anemia - Hgb=11.4, Hct=33.9, HVX=328, WBC=4.08, Pt=92 PT=13.1, INR=1.3 BUN=30 Tbili=1.5, DE=833 Alb=2.[address] results above. Large varices c/w splenorenal varices with extension into the gastric fundus. No active extravasation but suggestion of hemmorhage by hyperdense material in stomach. Cirrhotic liver and Partial Nonocclusive thrombus of the main portal vein EKG with ST with blocked PACs, incomplete RBBB, [id number] Assessment/Plan: -Patient hemodynamically stable at present. No further bleeding. He has two large PIVs in place. Octreotide and Protonix gtt presently being administered. He has been seen by GI. Plan for urgent OR for EGD, possible banding -Patient will most likely need to be transferred to facility with IR capabilities due to portal vein thrombosis -Will trend CBC q 6 hours, transfuse for active bleed, Hgb < 7 or symptomatic anemia -Remainder of plan as above PG Care Time/CCT Total # of Minutes Spent Total Time Spent with Patient: Total time spent is greater than 50% in coordination of care (as documented) at patient's floor/unit and/or counseling patient: Critical Care Time: Yes Total Critical Care Time: 60 Resident Activity Tracking Resident Involvement: Resident Care Provided Care Provided: Adult Hospital Medicine (1) Diabetes mellitus Diabetes mellitus complication status: without complication Diabetes mellitus retirement insulin use: without terminal manager use Diabetes mellitus type: type 2 Qualified Code(s): E11.9 - Type 2 diabetes mellitus without complications (2) Cirrhosis Hepatic cirrhosis type: other cirrhosis Qualified Code(s): K74.69 - Other cirrhosis of liver (3) Hematemesis Nausea presence: with nausea Qualified Code(s): K92.0 - Hematemesis
--- NOTE | 2018-12-09 22:07 | Anesthesiology Consultation ---
Date of Service December 09, 2018 Assessment & Plan Chart Review Chart Review: Acceptable Risk for Surgery and Patient NOT seen in Pre Admission Testing Consults Requested none ASA [id number] Proposed Anesthesia Anesthesia Type: General Risk / Benefits Reviewed With: PT / POA / Parent / Guardian, Accepts Plan and Informed Consent Obtained History Surgery Operation Date: 12/09/18 22:30 Proposed Procedures p EGD Banding of Varices - Kyler Redd MD Height/Weight Height: 6 ft 2 in Weight: 128.3 kg Allergies Allergy/AdvReac Type Severity Reaction Status Date / Time simvastatin AdvReac Unknown Gastrointestinal Verified 12/09/18 21:29 Upset Medications Home Medications Medication Instructions Recorded Confirmed Last Taken cetirizine 10 mg tablet 10 mg PO DAILY PRN tab 09/01/18 12/09/18 12/09/18 AM glucosam 500 mg-chondroit 66.7 2 tab PO DAILY #30 tab 09/01/18 12/09/18 12/09/18 mg-msm 500 mg-boron 2 mg-hyaluro tablet metformin ER 500 mg 1,000 mg PO BID #360 tab 09/01/18 12/09/18 12/09/18 17:00 tablet,extended release 24 hr multivitamin tablet 1 tab PO DAILY #30 tab 09/01/18 12/09/18 12/09/18 allopurinol 300 mg tablet 300 mg PO DAILY #90 tab 12/01/18 12/09/18 12/09/18 doxazosin 4 mg PO QPM 12/09/18 12/09/18 12/09/18 17:00 fluticasone propionate 2 sprays INTRANASAL DAILY 12/09/18 12/09/18 12/09/18 AM indomethacin 50 mg PO TID PRN 12/09/18 12/09/18 Unknown lovastatin 80 mg PO HS 12/09/18 12/09/18 12/08/18 omeprazole 20 mg PO DAILY PRN 12/09/18 12/09/18 Unknown Active Medications Generic Name Dose Route Start Last Admin Trade Name Freq PRN Reason Stop Dose Admin Pantoprazole Sodium 40 mg/ 100 mls @ 20 mls/hr 12/09/18 19:45 12/09/18 19:43 Dextrose IV 01/08/19 19:44 20 mls/hr Q5H GEO Administration Octreotide Acetate 500 mcg/ 105 mls @ 10.5 mls/hr 12/09/18 21:00 12/09/18 21:14 Sodium Chloride IV 01/08/19 20:59 50 mcg/hr .Q10H GEO 10.5 mls/hr Administration 50 MCG/HR Ioversol 92 ml 12/09/18 20:15 12/09/18 20:15 Optiray 320 100ml IV 12/13/18 20:14 92 ml ONCE PRN Administration Interaction Checking NPO Date Last Intake of Fluids: 12/09/18 Time Last Intake of Fluids: 17:30 Date Last Intake of Solids: 12/09/18 Time Last Intake of Solids: 17:30 Past Medical History Medical History Dermatitis (Acute) Cellulitis (Acute) Cat bite (Acute) Acute sinusitis (Acute) Abnormal liver function test (Acute) BPH with obstruction/lower urinary tract symptoms (Acute) Diabetes mellitus (Chronic) GERD without esophagitis (Chronic) Gout, joint (Chronic) Hypercholesterolemia (Chronic) Hyperglobulinemia (Acute) Internal hemorrhoids (Acute) Nonalcoholic fatty liver disease (Chronic) Obesity (Acute) Pancytopenia (Acute) Tubular adenoma of colon (Acute) Exercise / Class Metabolic Activity III < 4 Walking/Shop/Light housework Past Anesthesia History No Hx of Anesthesia Complications and No Family Hx of Anesthesia Complications History of PONV No Hx of PONV and No Hx of Motion Sickness Social History Smoking Status: Never smoker Physical Exam Vital Signs Last Vital Signs Temp 36.5 C 12/09/18 19:05 Pulse 100 H 12/09/18 21:40 Resp 17 12/09/18 21:40 BP 133/82 12/09/18 21:30 Pulse Ox 96 12/09/18 21:40 Constitutional + obese ENMT Mouth: + poor dentition Thyromental Distance: > or= 3.5 Finger Breadths Mallampati Class: II Neck normal visual inspection, trachea midline and + facial hair; neck extension not limited Respiratory normal respiratory effort Auscultation: lungs clear to auscultation bilaterally Cardiovascular Rate/Rhythm: regular rate and regular rhythm Heart Sounds: no murmur Vessels: no carotid bruit Musculoskeletal Spine: normal cervical ROM Neurologic moves all extremities Motor/Sensory: no sensory deficit Psychiatric Orientation: alert and oriented x 3 Testing Laboratory Results 12/09/18 19:23 12/09/18 19:23 PT 13.1 Seconds (9.0-12.0) H 12/09/18 19:23 INR 1.3 (0.9-1.1) H 12/09/18 19:23 APTT 24.4 Seconds (21.0-31.0) 12/09/18 19:23 Blood Type O Positive 12/09/18 19:23 Antibody Screen NEGATIVE 12/09/18 19:23 12/09/18 19:28 POC Glucose (other) 104 H Electrocardiogram Date: 12/09/18 SR at 86 w/ blocked PAC's,IRBBB;LVH;prolonged QT
[2018-12-09] MEDS ORDERED: SUCCINYLCHOLINE 100MG/5ML SYR ONE (22:26)
[2018-12-09] MEDS ORDERED: PROPOFOL IV EMULSION 10 MG/ML 20 ML VIAL IV ONE (22:26)
[2018-12-09] MEDS ORDERED: fentaNYL citrate 100 MCG/2 ML VIAL ONE (22:27)
[2018-12-09] MEDS ORDERED: PHENYLEPHRINE 100MCG/ML 5ML SYR ONE (22:59)
--- NOTE | 2018-12-09 23:15 | Gastroenterology Progress Note ---
Date of Service December 09, 2018 Assessment & Plan (1) Acute upper GI bleed: (2) Gastric varices: recommendations as follows: 1. continue octreotide gtt 2. remain NPO 3.recommend IV antibiotics ceftriaxone daily for 7 days for sepsis prophylaxis 4. trend H/H, transfuse prn hgb <7 5. Recommend transfer to a liver transplant center ([facility] or [facility]) as soon as possible, he likely needs a TIPS for definitive therapy for his gastric varices Subjective GI postoperative brief note Patient underwent EGD in OR for hematemesis, findings showed small nonbleeding esophageal varices with no stigmata of bleeding, large gastric varices in the fundus with stigmata of recent bleeding and maroon and old blood in the stomach. Additionally there were multiple large bezoars in the stomach, including one obstructing the pylorus. Extensive suctioning of blood was done in the stomach. Results & Data Vital Signs (Past 12 Hours) Vital Signs Temp Pulse Pulse Resp BP BP Pulse Ox 12/09/18 21:40 100 H 17 96 12/09/18 21:30 81 23 133/82 96 12/09/18 21:20 94 H 20 98 12/09/18 21:10 92 H 23 98 12/09/18 21:02 100 H 27 H 120/81 98 12/09/18 21:00 100 H 30 H 120/81 97 12/09/18 20:54 93 H 21 97 12/09/18 20:00 82 16 130/67 96 12/09/18 19:50 88 18 96 12/09/18 19:40 85 18 95 12/09/18 19:32 86 21 96 12/09/18 19:30 99 H 17 108/67 95 12/09/18 19:27 92 H 24 121/88 95 12/09/18 19:05 36.5 C 110 H 20 123/71 96 PG Care Time/CCT Total # of Minutes Spent Total Time Spent with Patient: Total time spent is greater than 50% in coordination of care (as documented) at patient's floor/unit and/or counseling patient:
[2018-12-09] MEDS ORDERED: NALOXONE HCL 0.4 MG/1 ML VIAL/CARP IV PRN (23:27)
[2018-12-09] MEDS ORDERED: ePHEDrine sulfate 50 MG/ML AMP IV PRN (23:27)
[2018-12-09] MEDS ORDERED: ATROPINE SULFATE 0.1 MG/ML 10ML SYR IV PRN (23:27)
[2018-12-09] MEDS ORDERED: PROMETHAZINE HCL 12.5 MG in SODIUM CHLORIDE 0.9% 50 ML IV PRN (23:27)
[2018-12-09] MEDS ORDERED: fentaNYL citrate 100 MCG/2 ML VIAL IV PRN (23:27)
[2018-12-09] MEDS ORDERED: ONDANSETRON INJ 2 MG/ML 2 ML VIAL IV PRN (23:27)
[2018-12-09] MEDS ORDERED: LABETALOL HCL IV 5 MG/ML 20ML IV PRN (23:27)
--- NOTE | 2018-12-09 23:42 | GI REPORT ---
Patient Name: Arnoldo Colon Procedure Date: 12/09/2018 9:40 PM Date of : 1955 Admit Type: Emergency Department Age: 63 Gender: Male Attending MD: Kyler Redd MD Procedure: Upper GI endoscopy Providers: Kyler Redd MD Referring MD: Mariano Hinton Md Indications: Hematemesis Medicines: Monitored Anesthesia Care Complications: No immediate complications. Estimated blood loss: None. Estimated Blood Loss: Estimated blood loss: none. Procedure: Pre-Anesthesia Assessment: - Prior Anticoagulants: The patient has taken no previous anticoagulant or antiplatelet agents. - ASA Grade Assessment: III - A patient with severe systemic disease. After obtaining informed consent, the endoscope was passed under direct vision. Throughout the procedure, the patient's blood pressure, pulse, and oxygen saturations were monitored continuously. The Scope was introduced through the mouth, and advanced to the antrum of the stomach. The upper GI endoscopy was accomplished without difficulty. The patient tolerated the procedure. Findings: Two columns of non-bleeding small (< 5 mm) varices were found in the middle third of the esophagus,. No stigmata of recent bleeding were evident and no red vishal signs were present. Varices with no bleeding were found in the gastric fundus. There were stigmata of recent bleeding. They were large in largest diameter. There were multiple large bezoars in the stomach, including one obstructing the pylorus fully. Extensive suctioning of old blood was done in the stomach. Impression: - Non-bleeding small (< 5 mm) esophageal varices. - Gastric varices. - Gastric varices, without bleeding. - No specimens collected. Recommendation: - NPO today. - Continue present medications. - Transfer patient to a liver transplant center as soon as possible for OLT evaluation and TIPS evaluation continue octreotide gtt recommend starting ceftriaxone daily for 7 days for sepsis prophylaxis for a cirrhotic with an UGI bleed . Kyler Redd MD 12/09/2018 11:41:17 PM This report has been signed electronically. Note Initiated On: 12/09/2018 9:40 PM Number of Addenda: 0 I attest to the content of the Intraoperative Record and orders documented therein, exceptions below {[id number]}
[2018-12-09] MEDS ORDERED: NORMOSOL-R 1,000 ML IV SCH (23:55)
[2018-12-09] MEDS ORDERED: ICU PROTOCOL FOR HYPERGLYCEMIA PRN (23:55)
--- NOTE | 2018-12-09 23:56 | Anesthesiology Progress Note ---
Date of Service December 09, 2018 Anesthesia Post Procedure Vital Signs Vital Signs: Temp Pulse Pulse Resp BP BP Pulse Ox 12/09/18 23:45 97 H 114/67 93 12/09/18 23:40 36.9 C 80 126/68 94 12/09/18 23:35 100 H 130/66 95 12/09/18 23:30 90 101/61 95 12/09/18 23:25 36.9 C 96 H 120/62 12/09/18 21:40 100 H 17 96 12/09/18 21:30 81 23 133/82 96 12/09/18 21:20 94 H 20 98 12/09/18 21:10 92 H 23 98 12/09/18 21:02 100 H 27 H 120/81 98 12/09/18 21:00 100 H 30 H 120/81 97 12/09/18 20:54 93 H 21 97 12/09/18 20:00 82 16 130/67 96 12/09/18 19:50 88 18 96 12/09/18 19:40 85 18 95 12/09/18 19:32 86 21 96 12/09/18 19:30 99 H 17 108/67 95 12/09/18 19:27 92 H 24 121/88 95 12/09/18 19:05 36.5 C 110 H 20 123/71 96 Transfer of Care Handoff Completed per policy Notes Mental Status: alert / awake / arousable and participated in evaluation Nausea / Vomiting: see Notes below (hematemesis) Pain: adequately controlled Airway Patency, RR, SpO2: stable & adequate BP & HR: stable & adequate Hydration State: stable & adequate Anesthetic Complications: no major complications apparent Notes: pt is critical,but stable at this time.He is awaiting transfer to [facility].
--- NOTE | 2018-12-09 23:56 | Discharge Summary ---
Date of Service December 09, 2018 Admission HPI Per Admitting Provider Patient is a 63 year old male PMHx DM2, GERD, HLD, NAFLD, Gout presenting initially with chief complaint of bloody vomiting. Patient states that roughly 3 hours ago he was driving when he felt severely nauseous, sweaty, and lightheaded, pulled over, and vomited 2x with what appeared to be a red/dark red emesis. He and his then promptly proceeded to come to the ED for evaluation. Upon arrival he again had 3x vomiting which showed bright red blood. He notes that for the past few days he has been noticing more fatigue and lightheadedness, but has not experienced the nausea or hematemesis. He also notes that he has been having normal bowel movements with regular stool that is not black or tarry. Currently patient is laying fairly comfortably in bed and appears calm. He notes that his nausea has mostly r esolved. Admission Exam Per Admitting Provider Constitutional: well developed, well nourished and cooperative Eyes: PERRL, conjunctivae normal, anicteric sclerae ENMT: external ear and nose normal, oropharynx normal Neck: trachea midline, no thyromegaly Respiratory: normal respiratory effort, lungs clear to auscultation Cardiovascular: Rate/Rhythm: regular rate and regular rhythm (with occasional skipped beats) Heart Sounds: normal S1 and normal S2; no murmur Gastrointestinal (Abdomen): Inspection/Auscultation: abdomen normal to inspection, normal bowel sounds and + abdominal surgical scar; no abdominal wall ecchymosis, Kehr's sign negative, Morales-Forte sign absent and no high-pitched sounds Percussion/Palpation: + abdomen tender (TTP lower R quadrant 3/10 intensity) and abdomen soft; no guarding and abdomen not firm Skin: no jaundice Neurologic: moves all extremities and awake; not confused Psychiatric: A+Ox3, euthymic affect Principal Diagnosis Upper GI bleed, concern for variceal bleed Discharge Exam General: NAD Skin: warm, dry, intact, no rashes/lesions, +Pallor HEENT: NC/AT, PERRL, EOMI, MMM, Neck supple, no JVD Heart: +S1/S23, regular, no m/r/g Lungs: CTA Abd: +BS, soft, NT/ND Ext: no edema Neuro: no focal deficits Discharge Data Allergies Allergy/AdvReac Type Severity Reaction Status Date / Time simvastatin AdvReac Unknown Gastrointestinal Verified 12/09/18 21:29 Upset Consultations 12/09/18 19:52 Consult Gastroenterology Stat 12/09/18 20:46 ED Decision to Admit Stat 12/09/18 23:50 Burn CD for patient Stat 12/09/18 23:55 Consult Financial Sales Representative Routine Procedures Performed Operation Date: 12/09/18 22:30 Actual Procedures p EGD (Not Applicable) - Kyler Redd MD Patient underwent EGD in OR for hematemesis, findings showed small nonbleeding esophageal varices with no stigmata of bleeding, large gastric varices in the fundus with stigmata of recent bleeding and maroon and old blood in the stomach. Additionally there were multiple large bezoars in the stomach, including one obstructing the pylorus. Extensive suctioning of blood was done in the stomach. Ordered Studies 12/09/18 19:12 CT abd pelvis IV con only Stat Total Time Total Time Spent Total Time Spent (In Minutes): 40 minutes Discharge Plan Discharge Items Patient Disposition: Transfer Acute Care Hospital Reason For Visit: UGIB,RUPTURED VARICES Discharge Diagnosis: UGIB, ruptured varices Condition on Discharge: Serious Health Concerns: High risk of rebleeding Activity: As commented below Activity Comment: Bedrest Non-emergency contact: Primary Care Provider Call non-emergency contact if: your pain is not controlled Follow-up/Referrals: Cristhian Polk MD [Primary Care Provider] - Add Attending Provider Instructions: Transfer to [facility] Pending Studies at Discharge: No Stand-Alone Forms: My [facility] Skilled Items Patient informed of condition?: Yes DNR: No Discharge Level of Care: Other Communicable Disease: No Discharge Prognosis: Stable Lines: Peripheral IV Urinary Catheter: No Medications and DC Order Prescriptions: No Action allopurinol 300 mg tablet 300 mg PO DAILY Qty: 90 RF: 2 cetirizine 10 mg tablet 10 mg PO DAILY PRN (Reason: Allergy Symptoms) RF: 0 metformin 500 mg tablet extended release 24 hr 1,000 mg PO BID Qty: 360 RF: 0 Glucosamine-Chondr (MSM-hyal) 500-66.7-500-2 mg tablet 2 tab PO DAILY Qty: 30 RF: 0 multivitamin [Multiple Vitamins] tablet 1 tab PO DAILY Qty: 30 RF: 0 lovastatin 40 mg tablet 80 mg PO HS RF: 0 indomethacin 50 mg capsule 50 mg PO TID PRN (Reason: Gout Pain) RF: 0 omeprazole 20 mg capsule,delayed release(DR/EC) 20 mg PO DAILY PRN (Reason: Acid Reflux) RF: 0 doxazosin 4 mg tablet 4 mg PO QPM RF: 0 fluticasone propionate 50 mcg/actuation spray,suspension 2 sprays intranasal DAILY RF: 0 Discharge Orders: Discharge Order (Routine); Ordered 12/10/18 Ordered By: Rufina Vigil Admission Data Admit Date/Time: 12/09/18 21:57 Attending Provider: Rufina Vigil Admit Provider: Rufina Vigil Primary Care Provider: Cristhian Polk Other Providers: Kyler Redd ; Rufina Vigil ; Tavo Calix
[2018-12-10] MEDS ORDERED: cefTRIAXone SODIUM 2,000 MG in DEXTROSE 5% 50 ML IV SCH
[2018-12-10] MEDS: PANTOprazole 40 MG in DEXTROSE 5% 100 ML IV SCH (00:01)
--- NOTE | 2018-12-10 00:01 | Emergency Department Note ---
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 The patient reports that he has been feeling lightheaded all day. He states that he vomited blood 5-6 times today. He states that each time it was bright red blood and it was about a 1/3 of a cup. The patient reports that he has abdominal pain. He denies any dark stools or bloody noses. The patient denies any alcohol use. He reports that he has a history of a hernia. Patient denies any chest pain or shortness of breath. He does admit to diffuse weakness. Denies taking any blood thinners. Previous history of pancytopenia. Home Medications Home Medications Medication Instructions Recorded Confirmed Type cetirizine 10 mg tablet 10 mg PO DAILY PRN tab 09/01/18 12/09/18 History glucosam 500 mg-chondroit 66.7 2 tab PO DAILY #30 tab 09/01/18 12/09/18 Rx mg-msm 500 mg-boron 2 mg-hyaluro tablet metformin ER 500 mg 1,000 mg PO BID #360 tab 09/01/18 12/09/18 History tablet,extended release 24 hr multivitamin tablet 1 tab PO DAILY #30 tab 09/01/18 12/09/18 Rx allopurinol 300 mg tablet 300 mg PO DAILY #90 tab 12/01/18 12/09/18 Rx doxazosin 4 mg PO QPM 12/09/18 12/09/18 History fluticasone propionate 2 sprays INTRANASAL DAILY 12/09/18 12/09/18 History indomethacin 50 mg PO TID PRN 12/09/18 12/09/18 History lovastatin 80 mg PO HS 12/09/18 12/09/18 History omeprazole 20 mg PO DAILY PRN 12/09/18 12/09/18 History Allergies Allergy/AdvReac Type Severity Reaction Status Date / Time simvastatin AdvReac Unknown Gastrointestinal Verified 12/09/18 21:29 Upset Past Med/Surg History Medical History Dermatitis (Acute) Cellulitis (Acute) Cat bite (Acute) Acute sinusitis (Acute) Abnormal liver function test (Acute) BPH with obstruction/lower urinary tract symptoms (Acute) Diabetes mellitus (Chronic) GERD without esophagitis (Chronic) Gout, joint (Chronic) Hypercholesterolemia (Chronic) Hyperglobulinemia (Acute) Internal hemorrhoids (Acute) Nonalcoholic fatty liver disease (Chronic) Obesity (Acute) Pancytopenia (Acute) Tubular adenoma of colon (Acute) Social History Preferred Language: Telugu Feels Safe at Home: Yes Smoking Status: Never smoker Review of Systems See HPI for pertinent positives & negatives. and A total of 10 systems reviewed and were otherwise negative Physical Exam Vital Signs Vital Signs - 24 hr 12/09/18 19:05 12/09/18 19:27 12/09/18 19:30 Temperature 36.5 C Temperature Source Oral Sepsis Recent Fever Within 48 Hours No Sepsis New/Unexplained Change in Mental Status No Sepsis Action Taken by Nursing No Action Required Pulse Rate 110 H 92 H 99 H Pulse Rate [Finger] Pulse Rate from SpO2 Sensor 96 H 97 H Respiratory Rate 20 24 17 Blood Pressure 123/71 121/88 108/67 Blood Pressure [Right Arm] Blood Pressure Mean 88 99 80 Blood Pressure Mean [Right Arm] Pulse Oximetry 96 95 95 Oxygen Delivery Method Room Air Room Air 12/09/18 19:32 12/09/18 19:40 12/09/18 19:50 Temperature Temperature Source Sepsis Recent Fever Within 48 Hours Sepsis New/Unexplained Change in Mental Status Sepsis Action Taken by Nursing Pulse Rate 86 85 88 Pulse Rate [Finger] Pulse Rate from SpO2 Sensor 90 91 H 89 Respiratory Rate 21 18 18 Blood Pressure Blood Pressure [Right Arm] Blood Pressure Mean Blood Pressure Mean [Right Arm] Pulse Oximetry 96 95 96 Oxygen Delivery Method Room Air Room Air Room Air 12/09/18 20:00 12/09/18 20:54 12/09/18 21:00 Temperature Temperature Source Sepsis Recent Fever Within 48 Hours Sepsis New/Unexplained Change in Mental Status Sepsis Action Taken by Nursing Pulse Rate 82 93 H 100 H Pulse Rate [Finger] Pulse Rate from SpO2 Sensor 93 H 90 108 H Respiratory Rate 16 21 30 H Blood Pressure 130/67 120/81 Blood Pressure [Right Arm] Blood Pressure Mean 88 94 Blood Pressure Mean [Right Arm] Pulse Oximetry 96 97 97 Oxygen Delivery Method Room Air Room Air Room Air 12/09/18 21:02 12/09/18 21:10 12/09/18 21:20 Temperature Temperature Source Sepsis Recent Fever Within 48 Hours Sepsis New/Unexplained Change in Mental Status Sepsis Action Taken by Nursing Pulse Rate 92 H 94 H Pulse Rate [Finger] 100 H Pulse Rate from SpO2 Sensor 92 H 104 H Respiratory Rate 27 H 23 20 Blood Pressure Blood Pressure [Right Arm] 120/81 Blood Pressure Mean Blood Pressure Mean [Right Arm] 94 Pulse Oximetry 98 98 98 Oxygen Delivery Method Room Air Room Air Room Air 12/09/18 21:30 12/09/18 21:40 12/09/18 21:56 Temperature Temperature Source Sepsis Recent Fever Within 48 Hours Sepsis New/Unexplained Change in Mental Status Sepsis Action Taken by Nursing Pulse Rate 81 100 H Pulse Rate [Finger] Pulse Rate from SpO2 Sensor 87 100 H Respiratory Rate 23 17 Blood Pressure 133/82 Blood Pressure [Right Arm] Blood Pressure Mean 99 Blood Pressure Mean [Right Arm] Pulse Oximetry 96 96 Oxygen Delivery Method Room Air Room Air Room Air GENERAL: alert, sitting up in bed, blood covering shirt and pants, talking in full sentences, pale appearing and ill-appearing EYE EXAM: normal conjunctiva OROPHARYNX: Dried blood around mouth NECK: supple, no nuchal rigidity, no adenopathy, non-tender LUNGS: Clear to auscultation. Normal chest wall mechanics HEART: no murmurs, S1 normal and S2 normal ABDOMEN: abdomen soft, non-tender, normo-active bowel sounds, no masses, no rebound or guarding. BACK: Back is symmetrical on inspection and there is no deformity, no midline tenderness, no CVA tenderness. SKIN: no rashes and no bruising UPPER EXTREMITIES: upper extremities are grossly normal. LOWER EXTREMITIES: No pitting edema. NEURO EXAM: Normal sensorium, cranial nerves II-XII grossly intact, normal speech, no gross weakness of arms, no gross weakness of legs. Course ED COURSE: Vital signs were reviewed and showed hypertensive and tachycardic The patients medical record was reviewed The above diagnostic studies were performed and reviewed. ED treatments and interventions as stated above. 1909: The patient was evaluated in room B10. A complete history and physical examination was performed. 2049: I reevaluated the patient and updated him on his results. 2051: I discussed the patient's case with Dr. Vigil- [facility], and her resident, they will evaluate the patient. 2099: The patient will be brought to the OR. Based on the patients age, coexisting illnesses, exam and lab findings the decision to treat as an inpatient was made. The patient remained stable while under my care. The patient will be evaluated for further management. Administered Medications Pantoprazole Sodium 40 mg/ (Dextrose) 100 mls @ 20 mls/hr IV Q5H GEO Stop: 01/08/19 19:44 Last Admin: 12/09/18 19:43 Dose: 20 mls/hr Documented by: [id number] Octreotide Acetate 500 mcg/ (Sodium Chloride) 105 mls @ 10.5 mls/hr IV .Q10H GEO Stop: 01/08/19 20:59 Last Admin: 12/09/18 21:14 Dose: 50 mcg/hr, 10.5 mls/hr Documented by: [id number] Ioversol (Optiray 320 100ml) 92 ml IV ONCE PRN PRN Reason: Interaction Checking Stop: 12/13/18 20:14 Last Admin: 12/09/18 20:15 Dose: 92 ml Documented by: [id number] Discontinued Medications Sodium Chloride (Nss 1000ml) 1,000 mls @ 999 mls/hr IV .Q1H1M GEO Stop: 12/09/18 20:15 Last Infusion: 12/09/18 20:51 Dose: 0 mls/hr Documented by: [id number] Admin: 12/09/18 19:42 Dose: 999 mls/hr Documented by: [id number] Pantoprazole Sodium 80 mg/ (Dextrose) 120 mls @ 480 mls/hr IV NOW ONE Stop: 12/09/18 19:44 Last Infusion: 12/09/18 19:58 Dose: 0 mls/hr Documented by: [id number] Admin: 12/09/18 19:35 Dose: 480 mls/hr Documented by: [id number] Octreotide Acetate 50 mcg/ (Syringe) 10 mls @ 3 mls/min IV ONE STA Stop: 12/09/18 20:49 Last Admin: 12/09/18 21:54 Dose: 3 mls/min Documented by: [id number] Metoclopramide HCl (Reglan) 10 mg IV NOW STA Stop: 12/09/18 21:19 Last Admin: 12/09/18 21:36 Dose: 10 mg Documented by: [id number] Medical Decision Making Differential Diagnosis Differential diagnosis: Etiologies such as diverticulosis, AVM, coagulopathy, c olitis, inflammatory bowel disease, malignancy, Keisha-Ardon tear, esophagitis, peptic ulcer disease, variceal bleed, gastritis, epistaxis, fissure, hemorrhoids, as well as others were entertained. Medical Records Attestation: I reviewed the patient's medical records. Home Medications Current Medication List: was personally reviewed by me Laboratory Data Attestation: I reviewed the patient's lab results. Result diagrams: 12/09/18 19:23 12/09/18 19:23 Lab Results 12/09/18 12/09/18 12/09/18 Range/Units 19:23 19:23 19:23 WBC 4.08 L (4.8-10.8) K/uL RBC 3.23 L (4.7-6.1) M/uL Hgb 11.4 L (14.0-18.0) g/dL POC Hgb (14.0-18.0) g/dl Hct 33.9 L (42-52) % POC Hct (42-52) % MCV 105.0 H (80-100) fL MCH 35.3 H (25-34) pg MCHC 33.6 (32-36) g/dL RDW Std Deviation 57.0 H (36.4-46.3) fL RDW Coeff of Abhinav 14.9 H (11.5-14.5) % Plt Count 92 L (130-400) K/uL MPV 10.7 H (7.4-10.4) fL Immature Gran % (Auto) 0.2 % Neut % (Auto) 56.4 % Lymph % (Auto) 30.4 % [place] % (Auto) 7.1 % Eos % (Auto) 5.4 % Baso % (Auto) 0.5 % Immature Gran # (Auto) 0.01 (0.00-0.02) K/uL Neut # (Auto) 2.30 (1.4-6.5) K/uL Lymph # (Auto) 1.24 (1.2-3.4) K/uL [place] # (Auto) 0.29 (0.11-0.59) K/uL Eos # (Auto) 0.22 (0-0.5) K/uL Baso # (Auto) 0.02 (0-0.2) K/uL PT 13.1 H (9.0-12.0) Seconds INR 1.3 H (0.9-1.1) APTT 24.4 (21.0-31.0) Seconds PTT Ratio 0.9 POC Sodium (135-144) mEq/L Sodium 142 (136-145) mmol/L POC Potassium (3.3-5.0) mEq/L Potassium 4.2 (3.5-5.1) mmol/L POC Chloride (101-112) mEq/L Chloride 109 H (98-107) mmol/L Carbon Dioxide 21 (21-32) mmol/L POC Total CO2 (24-31) mEq/l Anion Gap 12.0 H (3-11) POC Anion Gap (16-25) mmol/L POC BUN (7-18) mg/dl BUN 30 H (7-18) mg/dl Creatinine 1.04 (0.6-1.4) mg/dl POC Creatinine (0.6-1.3) mg/dl Est Cr Clr Drug Dosing 100.8 ml/min Est GFR ( Amer) 86.9 Est GFR (Non-Af Amer) 75.0 BUN/Creatinine Ratio 29.2 H (10-20) Glucose 107 H (70-99) mg/dl POC Glucose (other) (70-99) mg/dl Calcium 9.3 (8.5-10.1) mg/dl POC Ioniz Calcium Mia (1.12-1.32) mmol/l Total Bilirubin 1.5 H (0.2-1) mg/dl AST 58 H (15-37) U/L ALT 53 (12-78) U/L Alkaline Phosphatase 142 H (45-117) U/L Troponin I < 0.015 (0-0.045) ng/ml Total Protein 7.3 (6.4-8.2) gm/dl Albumin 2.9 L (3.4-5.0) gm/dl Globulin 4.4 H (2.5-4.0) gm/dl Albumin/Globulin Ratio 0.7 L (0.9-2) Blood Type Blood Type Recheck Antibody Screen Crossmatch 12/09/18 12/09/18 12/09/18 Range/Units 19:23 19:28 21:09 WBC (4.8-10.8) K/uL RBC (4.7-6.1) M/uL Hgb (14.0-18.0) g/dL POC Hgb 11.2 L (14.0-18.0) g/dl Hct (42-52) % POC Hct 33 L (42-52) % MCV (80-100) fL MCH (25-34) pg MCHC (32-36) g/dL RDW Std Deviation (36.4-46.3) fL RDW Coeff of Abhinav (11.5-14.5) % Plt Count (130-400) K/uL MPV (7.4-10.4) fL Immature Gran % (Auto) % Neut % (Auto) % Lymph % (Auto) % [place] % (Auto) % Eos % (Auto) % Baso % (Auto) % Immature Gran # (Auto) (0.00-0.02) K/uL Neut # (Auto) (1.4-6.5) K/uL Lymph # (Auto) (1.2-3.4) K/uL [place] # (Auto) (0.11-0.59) K/uL Eos # (Auto) (0-0.5) K/uL Baso # (Auto) (0-0.2) K/uL PT (9.0-12.0) Seconds INR (0.9-1.1) APTT (21.0-31.0) Seconds PTT Ratio POC Sodium 141 (135-144) mEq/L Sodium (136-145) mmol/L POC Potassium 4.2 (3.3-5.0) mEq/L Potassium (3.5-5.1) mmol/L POC Chloride 108 (101-112) mEq/L Chloride (98-107) mmol/L Carbon Dioxide (21-32) mmol/L POC Total CO2 21 L (24-31) mEq/l Anion Gap (3-11) POC Anion Gap 17.0 (16-25) mmol/L POC BUN 29 H (7-18) mg/dl BUN (7-18) mg/dl Creatinine (0.6-1.4) mg/dl POC Creatinine 0.9 (0.6-1.3) mg/dl Est Cr Clr Drug Dosing ml/min Est GFR ( Amer) Est GFR (Non-Af Amer) BUN/Creatinine Ratio (10-20) Glucose (70-99) mg/dl POC Glucose (other) 104 H (70-99) mg/dl Calcium (8.5-10.1) mg/dl POC Ioniz Calcium Mia 1.20 (1.12-1.32) mmol/l Total Bilirubin (0.2-1) mg/dl AST (15-37) U/L ALT (12-78) U/L Alkaline Phosphatase (45-117) U/L Troponin I (0-0.045) ng/ml Total Protein (6.4-8.2) gm/dl Albumin (3.4-5.0) gm/dl Globulin (2.5-4.0) gm/dl Albumin/Globulin Ratio (0.9-2) Blood Type O Positive Blood Type Recheck O Positive Antibody Screen NEGATIVE Crossmatch See Detail ECG Data Attestation: I personally reviewed and interpreted this ECG as follows: Indication: vomiting Rate (beats per minute): 88 Rhythm: sinus rhythm Findings: + RBBB and + prolonged QT Blood Pressure Blood Pressure Findings: Normal blood pressure Blood Pressure Disposition: did not require urgent referral MDM Narrative Patient is a 63-year-old male who presents the ER for hematemesis x6 today. He does admit to drinking previously when he was younger and intermittent beers but nothing over the top. No history of cirrhosis initially per the patient. Labs show mild leukocytosis at 4000. Hemoglobin 11. Mild thrombocytopenia at 92. INR was at 1.3. BMP with an elevated BUN of 30. Bilirubin was slightly elevated at 1.5. Mild transaminitis at 58 for AST. Patient was typed and crossed for 2 units due to the hematemesis. 2 large-bore IVs were established. Patient was given IV fluids. He was given IV Protonix drip and bolus. He was given a bolus of octreotide and placed on octreotide drip following the CT which showed large varices. Prior to this report GI had already evaluated him at bedside. We we discussed case just following the CT report. Updated the hospitalist. Patient was taking emergently to the OR for endoscopy and was monitored closely while in the ER. Impression & Plan Acute upper GI bleed, Hematemesis, Elevated BUN, Cirrhosis Critical Care Time Critical Care Time: Yes Total Critical Care Time: 40 I have personally spent 40 minutes of critical care time in the direct management of this patient. This includes bedside care, interpretation of diagnostic studies, and testing, discussion with consultants, patient, and family members, and other required patient management activities. This 40 minutes is in excess of all separately billable procedures. Discharge Plan Visit Data *Final* Discharge Date/Time: 12/09/18 21:56 Chief Complaint: Vomiting Stated Complaint: VOMITING BLOOD ED Provider: Mariano Hinton Discharge Problem: Acute upper GI bleed, Hematemesis, Elevated BUN, Cirrhosis Patient Disposition: Still a Patient Discharge Instructions Interventions: ED Discharge Assessment Last Done: 12/09/18 21:56 Discharge Problem: Hematemesis Qualifiers: Nausea presence: with nausea Qualified Code(s): K92.0 - Hematemesis Cirrhosis Qualifiers: Hepatic cirrhosis type: other cirrhosis Qualified Code(s): K74.69 - Other c irrhosis of liver The scribe's documentation has been prepared under my direction and personally reviewed by me in its entirety. I confirm that the note above accurately reflects all work, treatment, procedures, and medical decision making performed by me.
[2018-12-10] MEDS ORDERED: SODIUM CHLORIDE 0.9% 1000ML 1,000 ML IV SCH (00:15)
[2018-12-10] MEDS ORDERED: ONDANSETRON INJ 2 MG/ML 2 ML VIAL IV STA (00:24)
[2018-12-10 00:30] LABS: Hematocrit (blood only) 32.3 % (42-52); Hemoglobin 10.5 g/dL (14.0-18.0); Mean Corpuscular Volume 107.7 fL (80-100); RDW Coefficient of Variation 14.9 % (11.5-14.5); RDW Standard Deviation 58.5 fL (36.4-46.3); White Blood Count 4.82 K/uL (4.8-10.8)
[2018-12-10 00:53] LABS: Magnesium 1.5 mg/dl (1.8-2.4); Phosphorus 3.5 mg/dl (2.5-4.9)
[2018-12-10 01:01] LABS: Basophils # (auto) 0.03 K/uL (0-0.2); Basophils % (auto) 0.6 %; Eosinophils # (auto) 0.07 K/uL (0-0.5); Eosinophils % (auto) 1.5 %; Immature Granulocytes # (auto) 0.01 K/uL (0.00-0.02); Immature Granulocytes % (auto) 0.2 %; Lymphocytes # (auto) 0.99 K/uL (1.2-3.4); Lymphocytes % (auto) 20.5 %; Mean Corpuscular Hgb Conc 32.5 g/dL (32-36); Mean Platelet Volume 10.7 fL (7.4-10.4); Monocytes # (auto) 0.31 K/uL (0.11-0.59); Monocytes % (auto) 6.4 %; Neutrophils # (auto) 3.41 K/uL (1.4-6.5); Neutrophils % (auto) 70.8 %; Platelet Count 93 K/uL (130-400); Platelet Estimate Decreased (Normal); RBC Morphology Unremarkable
--- NOTE | 2018-12-11 15:58 | Critical Care Consultation ---
Date of Consultation December 11, 2018 History of Present Illness Attending Physician: Rufina Vigil DO Administrative note. Patient transferred to Tertiary care center prior to my evaluation. Allergies Allergy/AdvReac Type Severity Reaction Status Date / Time simvastatin AdvReac Unknown Gastrointestinal Verified 12/09/18 21:29 Upset Home Medications Home Medications Medication Instructions Recorded Confirmed Type cetirizine 10 mg tablet 10 mg PO DAILY PRN tab 09/01/18 12/09/18 History glucosam 500 mg-chondroit 66.7 2 tab PO DAILY #30 tab 09/01/18 12/09/18 Rx mg-msm 500 mg-boron 2 mg-hyaluro tablet metformin ER 500 mg 1,000 mg PO BID #360 tab 09/01/18 12/09/18 History tablet,extended release 24 hr multivitamin tablet 1 tab PO DAILY #30 tab 09/01/18 12/09/18 Rx allopurinol 300 mg tablet 300 mg PO DAILY #90 tab 12/01/18 12/09/18 Rx doxazosin 4 mg PO QPM 12/09/18 12/09/18 History fluticasone propionate 2 sprays INTRANASAL DAILY 12/09/18 12/09/18 History indomethacin 50 mg PO TID PRN 12/09/18 12/09/18 History lovastatin 80 mg PO HS 12/09/18 12/09/18 History omeprazole 20 mg PO DAILY PRN 12/09/18 12/09/18 History Patient History Medical History Dermatitis (Acute) Cellulitis (Acute) Cat bite (Acute) Acute sinusitis (Acute) Abnormal liver function test (Acute) BPH with obstruction/lower urinary tract symptoms (Acute) Diabetes mellitus (Chronic) GERD without esophagitis (Chronic) Gout, joint (Chronic) Hypercholesterolemia (Chronic) Hyperglobulinemia (Acute) Internal hemorrhoids (Acute) Nonalcoholic fatty liver disease (Chronic) Obesity (Acute) Pancytopenia (Acute) Tubular adenoma of colon (Acute) Social History Preferred Language: Marshallese Communication Ability: Effective Beliefs That Will Affect Care: None Current Living Situation: Spouse Feels Safe at Home: Yes Smoking Status: Former smoker Tobacco Type: smokeless tobacco ; Hx Alcohol Use: Yes Alcohol type: beer Hx Substance Use: No PG Care Time/CCT Total # of Minutes Spent Total Time Spent with Patient: Total time spent is greater than 50% in coordination of care (as documented) at patient's floor/unit and/or counseling patient:
== END 2018-12-10 01:25 | disposition short-term general hospital (02) | DRG 379 ==
LOC: ED 19:00 → OR 21:56 → 1E 21:57

== ENCOUNTER 2022-01-16 01:17 | Inpatient (IN) ==
[2022-01-16 03:46] LABS: Alanine Aminotransferase 51 U/L (7-52); Albumin Globulin Ratio 0.6 (0.9-2); Albumin Level 2.1 gm/dl (3.4-5.0); Alkaline Phosphatase 178 U/L (34-104); Anion Gap 10 (3-11); Aspartate Aminotransferase 63 U/L (13-39); BUN Creatinine Ratio 13.6 (10-20); Bilirubin,Total 10.4 mg/dl (0.2-1.0); Blood Urea Nitrogen 33 mg/dl (6-23); Calcium 8.6 mg/dl (8.5-10.1); Carbon Dioxide 20 mmol/L (21-32); Chloride 102 mmol/L (98-107); Est GFR (African American) 30.5 ml/min; Est GFR (Non-African American) 26.3 ml/min; Globulin 3.5 gm/dl (2.5-4.0); Glucose 136 mg/dl (70-99(Fasting)); Potassium 3.9 mmol/L (3.5-5.1); Sodium 132 mmol/L (136-145); Total Protein 5.6 gm/dl (6.0-8.3)
[2022-01-16 04:04] LABS: Hematocrit (blood only) 17.7 % (40.1-51.0); Hemoglobin 5.7 g/dl (14.0-18.0); Mean Corpuscular Hemoglobin 37.7 pg (25.0-34.0); Mean Corpuscular Hgb Conc 32.2 g/dL (32.0-36.0); Mean Corpuscular Volume 117.2 fL (80.0-100.0); Mean Platelet Volume 11.7 fL (9.4-12.4); Platelet Count 39 K/uL (130-400); RDW Coefficient of Variation 19.3 % (11.5-14.5); Red Blood Count 1.51 M/uL (4.63-6.08); White Blood Count 6.05 K/ul (4.8-10.8)
[2022-01-16 04:27] LABS: Basophils # (auto) 0.03 K/uL (0-0.2); Basophils % (auto) 0.5 %; Eosinophils # (auto) 0.21 K/uL (0-0.50); Eosinophils % (auto) 3.5 %; Immature Granulocytes # (auto) 0.03 K/uL (0.00-0.02); Immature Granulocytes % (auto) 0.5 %; Lymphocytes # (auto) 0.99 K/uL (1.2-3.4); Lymphocytes % (auto) 16.4 %; Macrocytosis Present; Monocytes # (auto) 0.72 K/uL (0.24-0.82); Monocytes % (auto) 11.9 %; Neutrophils # (auto) 4.07 K/uL (1.4-6.5); Neutrophils % (auto) 67.2 %; Polychromasia 1+
[2022-01-16] MEDS ORDERED: SODIUM CHLORIDE 0.9% 250 ML IV PRN ×2 (05:00→14:24)
--- NOTE | 2022-01-16 05:53 | History & Physical Report ---
Date of Service January 16, 2022 Assessment & Plan (1) Fall: Plan: 66yo male with history of LIU-cirrhosis s/p TIPS in 2019 presenting with fall from home. Patient denies loss of consciousness or head trauma. Fall most likely secondary to patient's chronic medical conditions, decompensation and anemia. No pain. -Fall precautions -PT/OT (2) Anemia: Plan: Patient with macrocytic anemia - Hgb=5.7, Hct=17.7, NXC=131.2. Possibly secondary to GI losses - patient with history of gastric varices as well as GAVE. Possibly post-TIPS hemolysis given marked elevation in Tbili as well. -Check FOBT stool -Check peripheral smear, LDH and Reticulocyte count to assess for hemolysis -Patient written to receive 1u PRBCs in ER. Will most likely need Lasix after transfusion -Repeat CBC at 12:00 today -Protonix 40mg IV BID (3) Nonalcoholic fatty liver disease: Plan: Patient with cirrhosis secondary to LIU, s/p TIPS. Concern for decompensation - patient with anemia as above, thrombocytopenia with Plt=39, Qh=738, Tbili of 10.4 (increased from 6.4 in August 2021), PJ=012. Albumin is stable at 2.1. He does appear somnolent and has some mild asterixis as well. No ascites present on exam. Per , patient is no longer being considered for transplant due to progression of weakness and debility -Check INR -Check Ammonia level -Check RUQUS -GI consultation appreciated -Repeat LFTs at 12:00 today -Continue Rifaximin 550mg -Continue Lactulose (4) Acute kidney injury superimposed on CKD: Plan: Patient with BIA on CKD. BUN of 33 and Cr of 2.43 which is increased from 16 and 1.59, respectively on 09/26/21. Patient was recently placed on increased d ose of Lasix, ?pre-renal. Concern for hepatorenal syndrome as well -Check UA -Chek urine Na, Cr and urea -Hold Lasix for now -Volume expansion with blood (1 unit ordered for now - will most likely need second unit), consider albumin after blood (1g/kg of body weight per day x 2 days) -Avoid nephrotoxic agents -Renal dosing where needed -Consider Nephrology consultation (5) Hypercholesterolemia: Plan: Chronic -Continue Lovastatin 40mg po daily (6) Gout, joint: Plan: Chronic -Hold Allopurinol for now given renal compromise F/E/N - Blood transfusion, monitor electrolytes, low Na diet Ppx - SCDs Code - DNR/DNI per discussion with patient Dispo - Admit to PCU History of Present Illness Chief Complaint: fall Primary Care Provider: Bert Polk MD Arnoldo oClon is a 66yo male with history of LIU Cirrhosis - history of variceal hemorrhage in 2020, history of TIPS procedure in 2019. 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 Patient follows with [facility]. Per , he was previously on the transplant list at [facility] which is no longer a valid program. He was being considered for transplant at [facility] but was denied due to h is progressive weakness. states he is no longer being considered for transplant. Patient presents today after a fall at home. He got up to use the bathroom and tipped over while using his walker. Patient denies head trauma or loss of consciousness. No acute pain. He reports he was unable to get up due to weakness therefore EMS was called. Patient reports that he "feels crappy" all the time. He denies fever, chills, cough, chest pain, palpitations, abdominal pain, nausea, vomiting, diarrhea. He does have persistent and progressive SOB as well as bilateral LE edema. He denies melena/hematochezia or hematuria. He is having a difficult time urinating. Per , patient was seen by PCP yesterday AM and was told that his Hgb was 7 and his K was high. He was encouraged to come to the ER then but did not. Patient has had progressive bilateral LE edema. He was previously on Lasix 40mg po daily which was increased to 80mg daily on 01/11/22 - 01/14/22 then back to 40mg daily on 01/15/22 In the ER patient afebrile, HD stable, NAD. Allergies Allergy/AdvReac Type Severity Reaction Status Date / Time simvastatin AdvReac Unknown Gastrointestinal Verified 01/11/22 14:36 Upset tramadol AdvReac Unknown dizzy Verified 01/11/22 14:36 Home Medications Medication Instructions Recorded Confirmed Type acetaminophen 500 mg tablet 1,000 mg PO Q6H PRN Pain 11/17/19 01/11/22 History (Tylenol Extra Strength) fluticasone propionate 50 2 spray intranasal DAILY PRN 06/14/20 01/11/22 History mcg/actuation nasal Congestion spray,suspension multivitamin (Daily Multi-Vitamin 1 tab PO DAILY 07/06/20 01/11/22 History tablet) hydrocortisone 2.5 % topical 1 applic topical .COMPLEX #20 grams 05/02/21 01/11/22 Rx ointment blood sugar diagnostic (Accu-Chek #100 ea 05/30/21 01/11/22 Rx Latasha Plus test strips) pantoprazole 40 mg tablet,delayed 40 mg PO DAILY gerd #90 tabs 05/30/21 01/11/22 Rx release allopurinol 100 mg tablet 100 mg PO DAILY #90 tabs 07/24/21 01/11/22 Rx furosemide 20 mg tablet 40 mg PO DAILY edema #180 tabs 08/09/21 01/11/22 Rx lactulose 20 gram/30 mL oral 20 g (30 mL) PO TID #3,000 mL 08/15/21 01/11/22 Rx solution Wheeled Walker #1 ea 09/29/21 01/11/22 Rx fluocinonide 0.05 % topical cream 1 applic topical BID #60 grams 09/29/21 01/11/22 Rx cetirizine 5 mg-pseudoephedrine ER 1 tab PO Q12H PRN Allergy Symptoms 10/19/21 01/11/22 History 120 mg tablet,extended release,12hr (Zyrtec-D) cholecalciferol (vitamin D3) 50 50 mcg PO DAILY 10/19/21 01/11/22 History mcg (2,000 unit) tablet (Vitamin D3) multivitamin 1 tab PO DAILY 10/19/21 01/11/22 History rifaximin 550 mg tablet (Xifaxan) See Rx Instructions .Route 11/06/21 01/11/22 Rx .COMPLEX #60 tabs lovastatin 40 mg tablet 40 mg PO HS 90 days #90 tabs 12/07/21 01/11/22 Rx potassium chloride 20 mEq/15 mL 20 meq (15 mL) PO BID #1,500 mL 12/29/21 01/11/22 Rx oral liquid ondansetron 4 mg disintegrating 4 mg PO Q8H PRN nausea and 01/11/22 01/11/22 Rx tablet vomiting #30 tabs Past Med/Surg History Medical History Abnormal liver function test Acute sinusitis BPH with obstruction/lower urinary tract symptoms Cat bite Cellulitis Dermatitis Diabetes mellitus GERD without esophagitis Gout, joint History of adenomatous polyp of colon Hypercholesterolemia Hyperglobulinemia Internal hemorrhoids Nonalcoholic fatty liver disease Nonalcoholic steatohepatitis Obesity Osteoporosis Pancytopenia Stage 3b chronic kidney disease Tubular adenoma of colon Vitamin D deficiency Surgical History H/O umbilical hernia repair Status post appendectomy Status post repair of ligament of ankle Left Achilles tendon surgery Family History Father Colorectal cancer Mother Lymphoma Aunt Ovarian cancer Denies family history of Prostate cancer Myocardial infarction Breast cancer Social History Smoking Status: Former smoker Tobacco Type: Smokeless Tobacco (Dip or Chew) Second Hand Exposure: No; Hx Alcohol Use: No Hx Substance Use: No Preferred Language: Macedonian Communication Ability: Effective Visual Impairment: Limited Hearing Ability: Normal Hydrodynamicist Required: No Beliefs That Will Affect Care: None marital status: Current Living Situation: Spouse current occupational status: retired current occupation: [employer] Feels Safe at Home: Yes Childhood Exposure to Second-Hand Smoke: Yes caffeine: Yes during the past year weight has: remained stable Dental Care, Regularly: Yes Physical Activity Frequency: 3-4 Times per Week Physical Activity Frequency Comment: Walking > 15-20 minutes Seatbelt Use: always Sunscreen Use: No Assistive Devices: Walker Review of Systems Review of Systems: All systems reviewed & are unremarkable except as noted in HPI & below Physical Exam Physical Exam: General: chronically ill in appearance, awake and oriented x 3 Skin: warm, dry, intact, bruising on bilateral UE, +jaundice HEENT: NC/AT, PERRL, EOMI, +Scleral icterus, conjunctiva without injection, external ear normal to inspection and nontender, nares patent, Dry mucus membranes, dentition poor, no oropharyngeal lesions, neck supple, trachea midline, no LAD, no thyromegaly, no JVD Heart: +S1/S2, irregularly irregular, no m/r/g Lungs: equal air entry bilaterally, diminished breath sounds left hemithorax, no wheezing Abd: +BS, soft, NT/ND, no masses/organomegaly/ascites Ext: warm, 2+ pulses in UE/LE bilaterally, no clubbing/cyanosis, 3+ pitting edema of bilateral LE to thighs Neuro: nonfocal, patient AA&O x 4, +asterixis, generalized weakness - strength 4/5 Results & Data Results & Data ([facility]) Vital Signs (Past 12 Hours) Vital Signs Temp Pulse Resp BP Pulse Ox O2 Del Method 01/16/22 01:25 36.3 C L 90 25 H 120/59 L 96 Room Air Laboratory Results Laboratory Results WBC 6.05 K/ul (4.8-10.8) 01/16/22 03:11 RBC 1.51 M/uL (4.63-6.08) L 01/16/22 03:11 Hgb 5.7 g/dl (14.0-18.0) L* 01/16/22 03:11 Hct 17.7 % (40.1-51.0) L* 01/16/22 03:11 MCV 117.2 fL (80.0-100.0) H 01/16/22 03:11 MCH 37.7 pg (25.0-34.0) H 01/16/22 03:11 MCHC 32.2 g/dL (32.0-36.0) 01/16/22 03:11 RDW Std Deviation 81.0 fL (36.4-46.3) H 01/16/22 03:11 RDW Coeff of Abhinav 19.3 % (11.5-14.5) H 01/16/22 03:11 Plt Count 39 K/uL (130-400) L 01/16/22 03:11 MPV 11.7 fL (9.4-12.4) 01/16/22 03:11 Immature Gran % (Auto) 0.5 % 01/16/22 03:11 Neut % (Auto) 67.2 % 01/16/22 03:11 Lymph % (Auto) 16.4 % 01/16/22 03:11 Rains % (Auto) 11.9 % 01/16/22 03:11 Eos % (Auto) 3.5 % 01/16/22 03:11 Baso % (Auto) 0.5 % 01/16/22 03:11 Neut # (Auto) 4.07 K/uL (1.4-6.5) 01/16/22 03:11 Lymph # (Auto) 0.99 K/uL (1.2-3.4) L 01/16/22 03:11 Rains # (Auto) 0.72 K/uL (0.24-0.82) 01/16/22 03:11 Eos # (Auto) 0.21 K/uL (0-0.50) 01/16/22 03:11 Baso # (Auto) 0.03 K/uL (0-0.2) 01/16/22 03:11 Immature Gran # (Auto) 0.03 K/uL (0.00-0.02) H 01/16/22 03:11 Polychromasia 1+ 01/16/22 03:11 Macrocytosis Present 01/16/22 03:11 Sodium 132 mmol/L (136-145) L 01/16/22 03:11 Potassium 3.9 mmol/L (3.5-5.1) 01/16/22 03:11 Chloride 102 mmol/L (98-107) 01/16/22 03:11 Carbon Dioxide 20 mmol/L (21-32) L 01/16/22 03:11 Anion Gap 10 (3-11) 01/16/22 03:11 BUN 33 mg/dl (6-23) H 01/16/22 03:11 Creatinine 2.43 mg/dl (0.6-1.4) H 01/16/22 03:11 Est Cr Clr Drug Dosing Not Reportable 01/16/22 03:11 Est GFR ( Amer) 30.5 ml/min 01/16/22 03:11 Est GFR (Non-Af Amer) 26.3 ml/min 01/16/22 03:11 BUN/Creatinine Ratio 13.6 (10-20) 01/16/22 03:11 Glucose 136 mg/dl (70-99(Fasting)) H 01/16/22 03:11 Calcium 8.6 mg/dl (8.5-10.1) 01/16/22 03:11 Total Bilirubin 10.4 mg/dl (0.2-1.0) H 01/16/22 03:11 AST 63 U/L (13-39) H 01/16/22 03:11 ALT 51 U/L (7-52) 01/16/22 03:11 Alkaline Phosphatase 178 U/L (34-104) H 01/16/22 03:11 Total Protein 5.6 gm/dl (6.0-8.3) L 01/16/22 03:11 Albumin 2.1 gm/dl (3.4-5.0) L 01/16/22 03:11 Globulin 3.5 gm/dl (2.5-4.0) 01/16/22 03:11 Albumin/Globulin Ratio 0.6 (0.9-2) L 01/16/22 03:11 Crossmatch See Detail 01/16/22 05:47 Diagnostic Findings CXR - by my interpretation - CXR with tracheal deviation, opacification of left lung field, increased interstitial markings in right ECG Additional Comments: EKG with SR with PACs and aberrant conduction, rate 94, SZ=013, QRS=96, DEc=646 Code Status & VTE Plan VTE Prophylaxis Plan VTE Prophylaxis will be ordered: Yes PG Care Time/CCT Total # of Minutes Spent Total Time Spent with Patient: Total time spent is greater than 50% in coordination of care (as documented) at patient's floor/unit and/or counseling patient: Coding Level of Care Code 89831 Initial Inpt Care Lvl 3 Diagnoses Fall W19.XXXA Anemia D64.9 Nonalcoholic fatty liver disease K76.0 Acute kidney injury superimposed on CKD N17.9; N18.9 Hypercholesterolemia E78.00 Gout, joint M10.9
[2022-01-16 06:53] LABS: Appearance Urine Clear (Clear); Bacteria Urine Automated Negative (Negative); Blood Urine Negative (Negative); Color Urine Dark Yellow; Epithelial Cell Urine Auto >30 /lpf (0-5); Glucose Urine UA Negative (Negative); Ketones Urine Negative (Negative); Leukocyte Esterase Urine Trace (Negative); Nitrite Urine Negative (Negative); Protein Urine Negative (Negative); RBC Urine Automated 0-4 /hpf (0-4); Specific Gravity Urine 1.016 (1.000-1.030); Urobilinogen Urine Negative (Negative); pH Urine 5.5 (4.5-7.5)
[2022-01-16 06:58] LABS: Bilirubin Urine 1+ (Negative)
[2022-01-16 07:07] LABS: Cast Urine Automated >30 /lpf (0-5)
[2022-01-16 07:08] LABS: Renal Epithelial Cells Urine 0-5 /lpf (0-5)
[2022-01-16 07:17] LABS: INR 2.5 (0.9-1.1); Prothrombin Time 25.1 Seconds (9.0-12.0)
--- NOTE | 2022-01-16 07:40 | Emergency Department Note ---
Impression & Plan [facility] NAME: ZAINAB LUIS AGE: 66 SEX: M ARRIVES VIA: Ambulance INFORMANT: Patient ED PROVIDER(S): Radha Brooks DO CHIEF COMPLAINT: Fall PLAN: Disposition: Admit to the [facility] Condition: Good MEDICAL DECISION MAKING: This is a 66-year-old male patient who presents to the emergency department af ter suffering a fall at home. Patient described feeling woozy in tipping over with his walker. His describes an overall general decline over the past couple of days with increasing shortness of breath. Patient has a history of Hunt was recently taken off of the transplant list. He also has end-stage renal disease. He had his Lasix dose increased 4 days ago from 40 mg to 80 mg but his renal function has declined and he has increased leg swelling and worsening shortness of breath. Laboratory studies reveal significant decline in his H&H and increasing creatinine. Chest x-ray shows significant pulmonary edema. [facility] and [facility] will evaluate for further management. Triage Nursing notes reviewed and agree with them. Prior medical records reviewed Vital Signs: reviewed and remarkable for no significant abnormalities Differential diagnosis: Dehydration, worsening renal insufficiency, anemia, CHF/pulmonary edema ER treatment provided: Diagnostics interpreted by me: ECG: Normal sinus rhythm at a rate of 94 with PACs. There is no ST segment elevation or signs of ischemia Cardiac Monitoring: Normal sinus rhythm at a rate of 92 Laboratory studies: See below Imaging studies: As per my interpretation Portable chest x-ray significant pulmonary edema and cardiomegaly HPI: 66/M arrives for evaluation of fall. According to EMS and the patient, he suffered a fall with his walker at home. The patient states he felt woozy over the past couple days with increasing shortness of breath. He describes feeling very cold. He has significant jaundice with a history of Hunt. Patient has significant edema to his legs but states this is chronic for him. ROS: See above HPI for pertinent positives & negatives. A total of 10 systems reviewed and were otherwise negative. PAST MEDICAL HISTORY:See Below PAST SURGICAL HISTORY:See Below FAMILY HISTORY:See Below SOCIAL HISTORY:See Below HOME MEDICATIONS:See list ALLERGIES:See list VITALS:See Below PHYSICAL EXAMINATION: HEENT: Head - normocephalic and atraumatic. Pupils are equal, round, and reactive to light. Ex with significant scleral icterustraocular eye muscles are intact, and sclera are anicteric. Nose - moist nasal mucosa without discha rge. Mouth - moist buccal mucosa. Oropharynx is nonerythematous and there is no tonsillar exudate or edema noted. Neck: Supple; no JVD or cervical lymphadenopathy Heart: Regular rate and rhythm. There is a normal S1 and S2 with no murmurs, clicks, or gallops appreciated. Lungs: Diminished breath sounds in the left lung base with diffuse rales Abdomen: Soft, completely nontender, but moderately distended with good bowel sounds. There are no palpable pulsatile masses or hepatosplenomegaly. There is no guarding, rigidity, or rebound noted. Extremities: 3+ pitting edema both lower extremities. Patient also has edema noted in both arms. Skin: warm and dry with good poor turgor and significant jaundice ED COURSE: Times/Reassessments: 230: The patient was evaluated in room B9. A complete history and physical was performed. Previous electronic medical records were reviewed. Laboratory studies were drawn as above. An order was placed for continuous cardiac monitoring. The patient was in a normal sinus rhythm at a rate of 92. A twelve-lead EKG was obtained as described above. I discussed the case on the phone with the patient's . I discussed the case with the patient. I discussed the case with the [facility] Hospitalist. Radha Brooks DO Past Med/Surg History Medical History Abnormal liver function test Acute sinusitis BPH with obstruction/lower urinary tract symptoms Cat bite Cellulitis Dermatitis Diabetes mellitus GERD without esophagitis Gout, joint History of adenomatous polyp of colon Hypercholesterolemia Hyperglobulinemia Internal hemorrhoids Nonalcoholic fatty liver disease Nonalcoholic steatohepatitis Obesity Osteoporosis Pancytopenia Stage 3b chronic kidney disease Tubular adenoma of colon Vitamin D deficiency Surgical History H/O umbilical hernia repair Status post appendectomy Status post repair of ligament of ankle Left Achilles tendon surgery Family History Father Colorectal cancer Mother Lymphoma Aunt Ovarian cancer Denies family history of Prostate cancer Myocardial infarction Breast cancer Social History Smoking Status: Former smoker Tobacco Type: Smokeless Tobacco (Dip or Chew) Second Hand Exposure: No; Hx Alcohol Use: No Hx Substance Use: No Preferred Language: Citizen Of [place] Communication Ability: Effective Visual Impairment: Limited Hearing Ability: Normal Entry Level Installation Technician Required: No Beliefs That Will Affect Care: None marital status: Current Living Situation: Spouse current occupational status: retired current occupation: [employer] Feels Safe at Home: Yes Childhood Exposure to Second-Hand Smoke: Yes caffeine: Yes during the past year weight has: remained stable Dental Care, Regularly: Yes Physical Activity Frequency: 3-4 Times per Week Physical Activity Frequency Comment: Walking > 15-20 minutes Seatbelt Use: always Sunscreen Use: No Assistive Devices: Walker Allergies Allergies Allergy/AdvReac Type Severity Reaction Status Date / Time simvastatin AdvReac Unknown Gastrointestinal Verified 01/11/22 14:36 Upset tramadol AdvReac Unknown dizzy Verified 01/11/22 14:36 Home Meds Home Medications Medication Instructions Recorded Confirmed acetaminophen 500 mg tablet 1,000 mg PO Q6H PRN Pain 11/17/19 01/11/22 (Tylenol Extra Strength) fluticasone propionate 50 2 spray intranasal DAILY PRN 06/14/20 01/11/22 mcg/actuation nasal Congestion spray,suspension multivitamin (Daily Multi-Vitamin 1 tab PO DAILY 07/06/20 01/11/22 tablet) cetirizine 5 mg-pseudoephedrine ER 1 tab PO Q12H PRN Allergy Symptoms 10/19/21 01/11/22 120 mg tablet,extended release,12hr (Zyrtec-D) cholecalciferol (vitamin D3) 50 50 mcg PO DAILY 10/19/21 01/11/22 mcg (2,000 unit) tablet (Vitamin D3) multivitamin 1 tab PO DAILY 10/19/21 01/11/22 Previous Rx's Medication Instructions Recorded hydrocortisone 2.5 % topical 1 applic topical .COMPLEX #20 grams 05/02/21 ointment blood sugar diagnostic (Accu-Chek #100 ea 05/30/21 Latasha Plus test strips) pantoprazole 40 mg tablet,delayed 40 mg PO DAILY gerd #90 tabs 05/30/21 release allopurinol 100 mg tablet 100 mg PO DAILY #90 tabs 07/24/21 furosemide 20 mg tablet 40 mg PO DAILY edema #180 tabs 08/09/21 lactulose 20 gram/30 mL oral 20 g (30 mL) PO TID #3,000 mL 08/15/21 solution Wheeled Walker #1 ea 09/29/21 fluocinonide 0.05 % topical cream 1 applic topical BID #60 grams 09/29/21 rifaximin 550 mg tablet (Xifaxan) See Rx Instructions .Route 11/06/21 .COMPLEX #60 tabs lovastatin 40 mg tablet 40 mg PO HS 90 days #90 tabs 12/07/21 potassium chloride 20 mEq/15 mL 20 meq (15 mL) PO BID #1,500 mL 12/29/21 oral liquid ondansetron 4 mg disintegrating 4 mg PO Q8H PRN nausea and 01/11/22 tablet vomiting #30 tabs Results & Data (ED) Vital Signs Vital Signs - 24 hr 01/16/22 01:25 01/16/22 01:25 01/16/22 01:29 Temperature 36.3 C L Temperature Source Oral Pulse Rate 90 88 Pulse Rate from SpO2 Sensor 98 H Respiratory Rate 25 H 26 H Respiratory Depth Normal Blood Pressure 120/59 L Blood Pressure Mean 79 Pulse Oximetry 96 97 Oxygen Delivery Method Room Air Sepsis Recent Fever Within 48 Hours No Sepsis New/Unexplained Change in Mental Status No Sepsis Action Taken by Nursing No Action Required 01/16/22 01:30 01/16/22 01:30 01/16/22 02:00 Temperature Temperature Source Pulse Rate 84 Pulse Rate from SpO2 Sensor 92 H Respiratory Rate 22 Respiratory Depth Blood Pressure 121/52 L 113/46 L Blood Pressure Mean 75 68 Pulse Oximetry 97 Oxygen Delivery Method Sepsis Recent Fever Within 48 Hours Sepsis New/Unexplained Change in Mental Status Sepsis Action Taken by Nursing 01/16/22 02:00 01/16/22 02:30 01/16/22 02:30 Temperature Temperature Source Pulse Rate 94 H 89 Pulse Rate from SpO2 Sensor 85 96 H Respiratory Rate 22 14 Respiratory Depth Blood Pressure 122/57 L Blood Pressure Mean 78 Pulse Oximetry 96 95 Oxygen Delivery Method Sepsis Recent Fever Within 48 Hours Sepsis New/Unexplained Change in Mental Status Sepsis Action Taken by Nursing 01/16/22 03:00 01/16/22 03:30 01/16/22 03:30 Temperature Temperature Source Pulse Rate 84 83 Pulse Rate from SpO2 Sensor 94 H 103 H Respiratory Rate 24 13 Respiratory Depth Blood Pressure 110/52 L Blood Pressure Mean 71 Pulse Oximetry 94 95 Oxygen Delivery Method Sepsis Recent Fever Within 48 Hours Sepsis New/Unexplained Change in Mental Status Sepsis Action Taken by Nursing 01/16/22 04:00 01/16/22 04:00 01/16/22 04:30 Temperature Temperature Source Pulse Rate 79 Pulse Rate from SpO2 Sensor 88 Respiratory Rate 18 Respiratory Depth Blood Pressure 113/54 L 112/46 L Blood Pressure Mean 73 68 Pulse Oximetry 95 Oxygen Delivery Method Sepsis Recent Fever Within 48 Hours Sepsis New/Unexplained Change in Mental Status Sepsis Action Taken by Nursing 01/16/22 04:30 01/16/22 05:00 01/16/22 05:00 Temperature Temperature Source Pulse Rate 82 83 Pulse Rate from SpO2 Sensor 88 82 Respiratory Rate 13 14 Respiratory Depth Blood Pressure 123/55 L Blood Pressure Mean 77 Pulse Oximetry 95 95 Oxygen Delivery Method Sepsis Recent Fever Within 48 Hours Sepsis New/Unexplained Change in Mental Status Sepsis Action Taken by Nursing 01/16/22 05:30 01/16/22 05:30 Temperature Temperature Source Pulse Rate 82 Pulse Rate from SpO2 Sensor 85 Respiratory Rate 26 H Respiratory Depth Blood Pressure 126/59 L Blood Pressure Mean 81 Pulse Oximetry 97 Oxygen Delivery Method Sepsis Recent Fever Within 48 Hours Sepsis New/Unexplained Change in Mental Status Sepsis Action Taken by Nursing Laboratory Data Result diagrams: 01/16/22 12:30 01/16/22 12:30 Lab Results 01/16/22 01/16/22 01/16/22 Range/Units 03:11 03:11 05:47 WBC 6.05 (4.8-10.8) K/ul RBC 1.51 L (4.63-6.08) M/uL Hgb 5.7 L* (14.0-18.0) g/dl Hct 17.7 L* (40.1-51.0) % MCV 117.2 H (80.0-100.0) fL MCH 37.7 H (25.0-34.0) pg MCHC 32.2 (32.0-36.0) g/dL RDW Std Deviation 81.0 H (36.4-46.3) fL RDW Coeff of Abhinav 19.3 H (11.5-14.5) % Plt Count 39 L (130-400) K/uL MPV 11.7 (9.4-12.4) fL Immature Gran % (Auto) 0.5 % Neut % (Auto) 67.2 % Lymph % (Auto) 16.4 % Towner % (Auto) 11.9 % Eos % (Auto) 3.5 % Baso % (Auto) 0.5 % Neut # (Auto) 4.07 (1.4-6.5) K/uL Lymph # (Auto) 0.99 L (1.2-3.4) K/uL Towner # (Auto) 0.72 (0.24-0.82) K/uL Eos # (Auto) 0.21 (0-0.50) K/uL Baso # (Auto) 0.03 (0-0.2) K/uL Immature Gran # (Auto) 0.03 H (0.00-0.02) K/uL Polychromasia 1+ Macrocytosis Present Peripher Smr Path Cons Sodium 132 L (136-145) mmol/L Potassium 3.9 (3.5-5.1) mmol/L Chloride 102 (98-107) mmol/L Carbon Dioxide 20 L (21-32) mmol/L Anion Gap 10 (3-11) BUN 33 H (6-23) mg/dl Creatinine 2.43 H (0.6-1.4) mg/dl Est Cr Clr Drug Dosing Not Reportable Est GFR ( Amer) 30.5 ml/min Est GFR (Non-Af Amer) 26.3 ml/min BUN/Creatinine Ratio 13.6 (10-20) Glucose 136 H (70-99(Fasting)) mg/dl Calcium 8.6 (8.5-10.1) mg/dl Total Bilirubin 10.4 H (0.2-1.0) mg/dl AST 63 H (13-39) U/L ALT 51 (7-52) U/L Alkaline Phosphatase 178 H (34-104) U/L Troponin I High Sens (0-20) pg/ml Total Protein 5.6 L (6.0-8.3) gm/dl Albumin 2.1 L (3.4-5.0) gm/dl Globulin 3.5 (2.5-4.0) gm/dl Albumin/Globulin Ratio 0.6 L (0.9-2) Blood Type O Positive Antibody Screen NEGATIVE Crossmatch See Detail 01/16/22 Range/Units 05:47 WBC (4.8-10.8) K/ul RBC (4.63-6.08) M/uL Hgb (14.0-18.0) g/dl Hct (40.1-51.0) % MCV (80.0-100.0) fL MCH (25.0-34.0) pg MCHC (32.0-36.0) g/dL RDW Std Deviation (36.4-46.3) fL RDW Coeff of Abhinav (11.5-14.5) % Plt Count (130-400) K/uL MPV (9.4-12.4) fL Immature Gran % (Auto) % Neut % (Auto) % Lymph % (Auto) % Towner % (Auto) % Eos % (Auto) % Baso % (Auto) % Neut # (Auto) (1.4-6.5) K/uL Lymph # (Auto) (1.2-3.4) K/uL Towner # (Auto) (0.24-0.82) K/uL Eos # (Auto) (0-0.50) K/uL Baso # (Auto) (0-0.2) K/uL Immature Gran # (Auto) (0.00-0.02) K/uL Polychromasia Macrocytosis Peripher Smr Path Cons Sodium (136-145) mmol/L Potassium (3.5-5.1) mmol/L Chloride (98-107) mmol/L Carbon Dioxide (21-32) mmol/L Anion Gap (3-11) BUN (6-23) mg/dl Creatinine (0.6-1.4) mg/dl Est Cr Clr Drug Dosing Est GFR ( Amer) ml/min Est GFR (Non-Af Amer) ml/min BUN/Creatinine Ratio (10-20) Glucose (70-99(Fasting)) mg/dl Calcium (8.5-10.1) mg/dl Total Bilirubin (0.2-1.0) mg/dl AST (13-39) U/L ALT (7-52) U/L Alkaline Phosphatase (34-104) U/L Troponin I High Sens 43.6 H (0-20) pg/ml Total Protein (6.0-8.3) gm/dl Albumin (3.4-5.0) gm/dl Globulin (2.5-4.0) gm/dl Albumin/Globulin Ratio (0.9-2) Blood Type Antibody Screen Crossmatch Administered Medications Pantoprazole Sodium 40 mg/ (Syringe) 10 mls @ 5 mls/min IV BID [facility] Stop: 02/15/22 08:59 Last Admin: 01/16/22 14:28 Dose: 5 mls/min Documented By: Admin: 01/16/22 11:03 Dose: 5 mls/min Documented By: JENNIE Lactulose (Lactulose Syrup 20 Gm/30 Ml Udc) 20 gm PO TID [facility] Stop: 02/15/22 08:59 Last Admin: 01/16/22 15:09 Dose: Not Given Documented By: Admin: 01/16/22 14:32 Dose: Not Given Documented By: LUTHER Rifaximin (Rifaximin 550 Mg Tablet) 550 mg PO BID [facility] Stop: 02/15/22 08:59 Last Admin: 01/16/22 14:32 Dose: Not Given Documented By: LUTHER Zinc Sulfate (Zinc Sulfate 220 Mg Capsule) 220 mg PO QAM [facility] Stop: 02/15/22 11:59 Last Admin: 01/16/22 14:32 Dose: Not Given Documented By: LUTHER Discontinued Medications Carvedilol (Carvedilol 3.125 Mg Tab) 3.125 mg PO NOW ONE Stop: 01/16/22 12:01 Last Admin: 01/16/22 14:32 Dose: Not Given Documented By: LUTHER Imaging Data Radiologist's Impression: Chest X-Ray 01/16/22 02:46 XR chest 1V portable HISTORY: 66 years-old Male Dyspnea acute shortness of breath. COMPARISON: Chest radiograph 10/02/2021 TECHNIQUE: AP view of the chest FINDINGS: Cardiac silhouette is enlarged. No pneumothorax. Pulmonary vascular congestion with interstitial coarsening. Moderate left pleural effusion with left basilar consolidation/volume loss. Degenerative changes of the shoulders and spine. IMPRESSION: 1. Cardiomegaly with pulmonary edema. 2. Moderate left pleural effusion with left basilar consolidation. ACT 112: Negative or not required by law. The above report was generated using voice recognition software. It may contain grammatical, syntax or spelling errors. Electronically signed by: Navi Lindsey M.D. 01/16/2022 8:13 AM Discharge Plan Visit Data Chief Complaint: Fall Stated Complaint: FALL ED Provider: Radha Brooks Discharge Problem: Fall, Anemia Patient Disposition: Admitted As Inpatient Discharge Instructions Interventions: ED Discharge Assessment Last Done: 01/16/22 08:28
--- NOTE | 2022-01-16 08:14 | XRay Report ---
XR chest 1V portable HISTORY: 66 years-old Male Dyspnea acute shortness of breath. COMPARISON: Chest radiograph 10/02/2021 TECHNIQUE: AP view of the chest FINDINGS: Cardiac silhouette is enlarged. No pneumothorax. Pulmonary vascular congestion with interstitial coar sening. Moderate left pleural effusion with left basilar consolidation/volume loss. Degenerative benoit ges of the shoulders and spine. IMPRESSION: 1. Cardiomegaly with pulmonary edema. 2. Moderate left pleural effusion with left basilar consolidation. ACT 112: Negative or not required by law. The above report was generated using voice recognition software. It may contain grammatical, syntax o r spelling errors. Electronically signed by: Navi Lindsey M.D. 01/16/2022 8:13 AM
[2022-01-16] MEDS ORDERED: ACETAMINOPHEN 325 MG TAB PO PRN (08:57)
[2022-01-16 09:51] LABS: Reticulocyte % 5.8 % (0.5-2.0); Reticulocytes # 0.08 10^6/uL (0.02-0.10)
[2022-01-16 10:08] LABS: Magnesium 2.1 mg/dl (1.7-2.4); Phosphorus 3.3 mg/dl (2.5-4.9)
[2022-01-16] MEDS: PANTOprazole 40 MG in SYRINGE 0 ML IV SCH ×2 (11:03→14:28)
--- NOTE | 2022-01-16 11:16 | Gastrointestinal Consultation ---
Date of Consultation January 16, 2022 Assessment & Plan (1) Anemia: (2) Cirrhosis: Plan Discussed case with Dr. Redd who advised on plan. - no signs of active bleeding at this time. if develops active bleeding would transfer out to facility with IR given history of varices and hemorrhage. - would recommend starting beta clemente and monitoring blood pressure given history of varices and variceal hemorrhage. will start coreg 3.125mg daily. - unclear if taking meds at home but lactulose and xifaxan were ordered and agree with starting this due to ammonia/mental status. also start zinc sulfate 225mg daily. - follow H/H and transfuse as needed. Supervising Physician Co-Signing Physician Notes I personally evaluated the patient and agree with the findings as documented by Rashard Maddox PAC Exam: Constitutional: WD/WN, vitals as above General: EOM intact bilaterally Neck: normal visual inspection Respiratory: normal respiratory effort, lungs clear to auscultation Cardiovascular: RRR, no murmur, no edema Gastrointestinal: abdomennormal to inspection, nondistended, soft, nontender, no hepatosplenomegaly Musculoskeletal: no cyanosis, head normal to inspection Skin: no rashes, warm and dry Neurologic: moves all extremities Psychiatric: not alert nor oriented History of Present Illness Reason for Consultation: decompensated cirrhosis Requesting Physician: Dr. Rufina Vigil Attending Physician: Rufina Vigil, DO History of Present Illness Patient is a 66 year old male with history of LIU cirrhosis, variceal hemorrhage 2020, TIPS 2018, followed by [facility] and was seen in the ED after sustaining a fall at home. Per chart, he was considered for liver transplant in the past but was no longer considered due to progressive weakness. Upone evaluation in ER his hgb was 5.7. Per chart, his hgb was 7 yesterday at PCP and he was advised to proceed to the ED but he did not. 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 history obtained from nursing and chart. patient is unable to provide any history as he is lethargic and ammonia is 115. Per nursing, no signs of active GI bleeding. he is s/p 1 unit PRBC and has another unit ordered. Allergies Allergy/AdvReac Type Severity Reaction Status Date / Time simvastatin AdvReac Unknown Gastrointestinal Verified 01/11/22 14:36 Upset tramadol AdvReac Unknown dizzy Verified 01/11/22 14:36 Home Medications Medication Instructions Recorded Confirmed Type acetaminophen 500 mg tablet 1,000 mg PO Q6H PRN Pain 11/17/19 01/11/22 History (Tylenol Extra Strength) fluticasone propionate 50 2 spray intranasal DAILY PRN 06/14/20 01/11/22 History mcg/actuation nasal Congestion spray,suspension multivitamin (Daily Multi-Vitamin 1 tab PO DAILY 07/06/20 01/11/22 History tablet) hydrocortisone 2.5 % topical 1 applic topical .COMPLEX #20 grams 05/02/21 01/11/22 Rx ointment blood sugar diagnostic (Accu-Chek #100 ea 05/30/21 01/11/22 Rx Latasha Plus test strips) pantoprazole 40 mg tablet,delayed 40 mg PO DAILY gerd #90 tabs 05/30/21 01/11/22 Rx release allopurinol 100 mg tablet 100 mg PO DAILY #90 tabs 07/24/21 01/11/22 Rx furosemide 20 mg tablet 40 mg PO DAILY edema #180 tabs 08/09/21 01/11/22 Rx lactulose 20 gram/30 mL oral 20 g (30 mL) PO TID #3,000 mL 08/15/21 01/11/22 Rx solution Wheeled Walker #1 ea 09/29/21 01/11/22 Rx fluocinonide 0.05 % topical cream 1 applic topical BID #60 grams 09/29/21 01/11/22 Rx cetirizine 5 mg-pseudoephedrine ER 1 tab PO Q12H PRN Allergy Symptoms 10/19/21 01/11/22 History 120 mg tablet,extended release,12hr (Zyrtec-D) cholecalciferol (vitamin D3) 50 50 mcg PO DAILY 10/19/21 01/11/22 History mcg (2,000 unit) tablet (Vitamin D3) multivitamin 1 tab PO DAILY 10/19/21 01/11/22 History rifaximin 550 mg tablet (Xifaxan) See Rx Instructions .Route 11/06/21 01/11/22 Rx .COMPLEX #60 tabs lovastatin 40 mg tablet 40 mg PO HS 90 days #90 tabs 12/07/21 01/11/22 Rx potassium chloride 20 mEq/15 mL 20 meq (15 mL) PO BID #1,500 mL 12/29/21 01/11/22 Rx oral liquid ondansetron 4 mg disintegrating 4 mg PO Q8H PRN nausea and 01/11/22 01/11/22 Rx tablet vomiting #30 tabs Patient History Medical History Abnormal liver function test Acute sinusitis BPH with obstruction/lower urinary tract symptoms Cat bite Cellulitis Dermatitis Diabetes mellitus GERD without esophagitis Gout, joint History of adenomatous polyp of colon Hypercholesterolemia Hyperglobulinemia Internal hemorrhoids Nonalcoholic fatty liver disease Nonalcoholic steatohepatitis Obesity Osteoporosis Pancytopenia Stage 3b chronic kidney disease Tubular adenoma of colon Vitamin D deficiency Surgical History H/O umbilical hernia repair Status post appendectomy Status post repair of ligament of ankle Left Achilles tendon surgery Family History Father Colorectal cancer Mother Lymphoma Aunt Ovarian cancer Denies family history of Prostate cancer Myocardial infarction Breast cancer Social History Smoking Status: Former smoker Tobacco Type: Smokeless Tobacco (Dip or Chew) Second Hand Exposure: No; Hx Alcohol Use: No Hx Substance Use: No Preferred Language: Georgian Communication Ability: Effective Visual Impairment: Limited Hearing Ability: Normal Uniform Patrol Police Officer Required: No Beliefs That Will Affect Care: None marital status: Current Living Situation: Spouse current occupational status: retired current occupation: [employer] Feels Safe at Home: Yes Childhood Exposure to Second-Hand Smoke: Yes caffeine: Yes during the past year weight has: remained stable Dental Care, Regularly: Yes Physical Activity Frequency: 3-4 Times per Week Physical Activity Frequency Comment: Walking > 15-20 minutes Seatbelt Use: always Sunscreen Use: No Assistive Devices: Walker Review of Systems Review of Systems: Unobtainable due to cognitive status Physical Exam Respiratory: normal respiratory effort, lungs clear to auscultation Cardiovascular: RRR, no murmur, no edema Gastrointestinal (Abdomen): soft, normal bowel sounds. Results & Data ([facility]) Vital Signs (Past 12 Hours) Vital Signs Temp Pulse Resp BP Pulse Ox O2 Del Method 01/16/22 11:00 72 18 137/73 97 01/16/22 10:09 77 18 124/56 L 96 01/16/22 09:09 72 16 135/60 94 01/16/22 08:39 74 18 105/49 L 95 01/16/22 08:24 36.8 C 86 20 117/41 L 94 01/16/22 08:09 36.8 C 73 18 125/54 L 95 01/16/22 07:00 77 18 96 01/16/22 07:00 111/62 01/16/22 06:30 86 24 95 01/16/22 06:30 115/66 01/16/22 06:00 91 H 26 H 96 01/16/22 06:00 129/56 L 01/16/22 05:30 82 26 H 97 01/16/22 05:30 126/59 L 01/16/22 05:00 83 14 95 01/16/22 05:00 123/55 L 01/16/22 04:30 82 13 95 01/16/22 04:30 112/46 L 01/16/22 04:00 79 18 95 01/16/22 04:00 113/54 L 01/16/22 03:30 83 13 95 01/16/22 03:30 110/52 L 01/16/22 03:00 84 24 94 01/16/22 02:30 89 14 95 01/16/22 02:30 122/57 L 01/16/22 02:00 94 H 22 96 01/16/22 02:00 113/46 L 01/16/22 01:30 84 22 97 01/16/22 01:30 121/52 L 01/16/22 01:29 88 26 H 97 01/16/22 01:25 36.3 C L 90 25 H 120/59 L 96 Room Air PG Care Time/CCT Total # of Minutes Spent Total Time Spent with Patient: Total time spent is greater than 50% in coordination of care (as documented) at patient's floor/unit and/or counseling patient: Coding Level of Care Code 17318 Initial Inpt Care Lvl 3 Diagnoses Anemia D64.9 Cirrhosis K74.69 Hepatic cirrhosis type: other cirrhosis (1) Cirrhosis Hepatic cirrhosis type: other cirrhosis Qualified Code(s): K74.69 - Other cirrhosis of liver
--- NOTE | 2022-01-16 11:18 | Electrocardiogram Report ---
Test Reason : Blood Pressure : / mmHG Vent. Rate : 094 BPM Atrial Rate : 094 BPM P-R Int : 188 ms QRS Dur : 096 ms QT Int : 366 ms P-R-T Axes : 029 001 019 degrees QTc Int : 457 ms Sinus rhythm with Premature atrial complexes with Aberrant conduction Nonspecific T wave abnormality Abnormal ECG When compared with ECG of 09-DEC-2018 19:17, QT has shortened Confirmed by Bert Cornelius ([id number]) on 01/16/2022 11:17:54 AM Referred By: REFERRED SELF Confirmed By:Dennis Cornelius
--- NOTE | 2022-01-16 11:50 | Ultrasound Report ---
US liver HISTORY: 66 years-old Male Abnormal LFTs elevated LFTs in a patient with prior TIPS procedure and ci rrhosis COMPARISON: Abdominal ultrasound 02/17/2020 TECHNIQUE: Multiple real-time sonographic images of the right upper quadrant abdomen were obtained as sessing grayscale appearance, color and spectral flow FINDINGS: Limited study secondary to patient body habitus and condition. The pancreas is obscured by bowel gas. The liver measures 10.9 cm in length with cirrhotic morphology . No hepatic mass identified. Patent tips shunt. Peak systolic velocities measuring up to 177 cm/s. S mall volume of upper abdominal ascites. The visualized gallbladder is unremarkable without cholelithi asis identified. Normal common bile duct, 7 mm. The right kidney is not diagnostically visualized. Le ft pleural effusion. IMPRESSION: 1. Limited exam as above. 2. Cirrhotic liver with patent TIPS shunt. 3. Small volume ascites with left pleural effusion. ACT 112: Negative or not required by law. The above report was generated using voice recognition software. It may contain grammatical, syntax o r spelling errors. Electronically signed by: Navi Lindsey M.D. 01/16/2022 11:49 AM
[2022-01-16] MEDS ORDERED: carvediloL 3.125 MG TAB PO ONE (12:00)
[2022-01-16 13:09] LABS: Hematocrit (blood only) 19.5 % (40.1-51.0); Hemoglobin 6.4 g/dl (14.0-18.0); Mean Corpuscular Hemoglobin 35.4 pg (25.0-34.0); Mean Corpuscular Hgb Conc 32.8 g/dL (32.0-36.0); Mean Corpuscular Volume 107.7 fL (80.0-100.0); Mean Platelet Volume 11.8 fL (9.4-12.4); Platelet Count 35 K/uL (130-400); RDW Coefficient of Variation 24.3 % (11.5-14.5); RDW Standard Deviation 93.5 fL (36.4-46.3); Red Blood Count 1.81 M/uL (4.63-6.08); White Blood Count 5.37 K/ul (4.8-10.8)
[2022-01-16 13:22] LABS: Albumin Level 2.1 gm/dl (3.4-5.0); BUN Creatinine Ratio 15.2 (10-20); Bilirubin Direct 3.2 mg/dl (0-0.2); Bilirubin,Total 10.7 mg/dl (0.2-1.0); Calcium 8.5 mg/dl (8.5-10.1); Creatinine Clr Calc Pharmacy 42.8 ml/min; Est GFR (African American) 32.4 ml/min; Potassium 4.1 mmol/L (3.5-5.1); Total Protein 5.7 gm/dl (6.0-8.3)
[2022-01-16 13:34] LABS: Anisocytosis Present; Basophils # (auto) 0.03 K/uL (0-0.2); Basophils % (auto) 0.6 %; Eosinophils # (auto) 0.23 K/uL (0-0.50); Eosinophils % (auto) 4.3 %; Immature Granulocytes # (auto) 0.04 K/uL (0.00-0.02); Immature Granulocytes % (auto) 0.7 %; Lymphocytes % (auto) 20.5 %; Macrocytosis Present; Monocytes # (auto) 0.59 K/uL (0.24-0.82); Neutrophils # (auto) 3.38 K/uL (1.4-6.5); Neutrophils % (auto) 62.9 %
[2022-01-16 14:19] LABS: Creatinine Urine Random 106.9 mg/dl; Sodium Random Urine < 10 mmol/L
[2022-01-16] MEDS: LACTULOSE SYRUP 20 GM/30 ML UDC PO SCH ×4 (14:32→20:33)
[2022-01-16] MEDS: rifAXIMin 550 MG TABLET PO SCH ×2 (14:32→20:33)
[2022-01-16] MEDS: ZINC SULFATE 220 MG CAPSULE PO SCH (14:32)
[2022-01-16] MEDS ORDERED: LACTULOSE 200GM/700ML WTR ENEMA PR ONE (14:45)
--- NOTE | 2022-01-16 14:59 | Hospitalist Progress Note ---
Date of Service January 16, 2022 Assessment & Plan (1) Fall: Plan: 66 yo male with history of LIU-cirrhosis s/p TIPS in 2019 presenting with fall from home. Patient denies loss of consciousness or head trauma. Fall most likely secondary to patient's chronic medical conditions, decompensation and anemia. No pain. -Fall precautions -PT/OT (2) Anemia: Plan: Patient with macrocytic anemia - Hgb=5.7, Hct=17.7, CPG=604.2. Possibly secondary to GI losses - patient with history of gastric varices as well as GAVE. Possibly post-TIPS hemolysis given marked elevation in Tbili as well. -Check FOBT stool -Check peripheral smear, LDH and Reticulocyte count to assess for hemolysis * Retic count 5.8% * Peripheral smear showing macrocytic anemia, thrombocytopenia, rare schistocytes * LDH 258 -Protonix 40mg IV BID - 01/16: Hgb slightly improved from 5.7 --> 6.4 after 1 unit blood transfusion, additional units ordered. - GI recommending beta-clemente, close monitoring of BP given varices and va riceal hemorrhage, starting on Coreg 3.125 mg daily. - No active bleeding at this time, however if actively developed GI would recommend transfer to facility with IR given history of varices, hemorrhage. - Lactulose enema ordered, not retaining. Now alert enogh for PO, will give lactulose PO as scheduled. - Start on zinc 225 mg daily. - Trend H&H. due at 2100/3 hours after blood, started @1700, Transfuse as needed. - 40 mg IV Lasix ordered for tonight and scheduled daily. - EGD 12/20/21--> normal esophagus without varices, type I isolated gastric varices and portal hypertensive gastropathy, gave without bleeding. - B12 and folate w/ next labs. (3) Nonalcoholic fatty liver disease: Plan: Patient with cirrhosis secondary to LIU, s/p TIPS. Concern for decompensation - patient with anemia as above, thrombocytopenia with Plt=39, Wx=072, Tbili of 10.4 (increased from 6.4 in August 2021), XV=161. Albumin is stable at 2.1. He does appear somnolent and has some mild asterixis as well. No ascites present on exam. Per , patient is no longer being considered for transplant due to progression of weakness and debility - Check INR: PT 25.1, INR 2.5. Repeat in AM. - Check Ammonia level: 115 - Check RUQUS: cirrhotic liver with TIPS shunt, small volume ascites, left pleural effusion - GI consultation appreciated - Repeat LFTs this afternoon--T bili mildly increased 10.7, D bili 3.2, AST/ALT/alk phos about the same -Continue Rifaximin 550mg -Continue Lactulose--enema ordered, not tolerating, is alert now and will try PO lactulose. - MELD 35: 52.6% 3 month mortality. - Palliative care consulted. (4) Acute kidney injury superimposed on CKD: Plan: -Patient with BIA on CKD. BUN of 33 and Cr of 2.43 which is increased from 16 and 1.59, respectively on 09/26/21. Patient was recently placed on increased dose of Lasix, ?pre-renal. Concern for hepatorenal syndrome as well -Check UA--> granular casts, hyaline casts, 1+ bili, trace leuk esterase -Check urine Na < 10, Cr 106, and urea pending -Volume expansion with blood, consider albumin after blood (1g/kg of body weight per day x 2 days) -Avoid nephrotoxic agents -Renal dosing where needed -Consider Nephrology consultation (5) Hypercholesterolemia: Plan: Chronic -Continue Lovastatin 40mg po daily (6) Gout, joint: Plan: Chronic -Hold Allopurinol for now given renal compromise F/E/N - Blood transfusion, monitor electrolytes, low Na diet Ppx - SCDs Code - DNR/DNI per discussion with patient Dispo - Admit to PCU Admission and Anticipated Discharge Date Admission Date: January 16, 2022 Supervising Physician Co-Signing Physician Notes PA Supervision Note: I did not personally see or examine the patient today, but I verified all spivey points of XIOMARA Fry's assessment and plan with the following exceptions/additions: None Subjective Patient seen at bedside, with present. Unable to obtain ROS due to decreased cognition. VS, imaging, labs reviewed. Apparently patient is no longer a candidate for liver transplant due to deconditioning. He has significant edema and jaundice, increased confusion and drowsiness, per increased from baseline. He had been having 5 or 6 nonbloody, nonpainful bowel movements a day over the weekend, however had none yesterday despite taking his lactulose as prescribed. No hematuria, dark BMs, pain. Recently had his Lasix dose increased from 40 to 80 mg daily given severe edema. Continues to have swelling, shortness of breath despite increased dose. Today he is more alert than yesterday, unable to retain lactulose enema. Patient initially drowsy, however later in the day reassessment is now more alert, tolerating p.o. intake. Blood transfusing. Review of Systems Review of Systems: Unobtainable due to reduced consciousness Physical Exam Physical Exam: General: drowsy, arousable, jaundiced, no apparent distress Head: Normocephalic, atraumatic ENT: PERRL, EOMI, no pharyngeal exudate, mucous membranes moist Chest: reduced lung sounds throughout; on room air, no adventitious breath sounds Cardiac: Regular rate and rhythm, no murmur, no JVD, normal peripheral pulses, good capillary refill Abdominal: NABS x 4 quadrants, soft, nontender to palpation, no rebound, guarding or tenderness Extremities: 4+ b/l LE edema, calfs nontender to palpation Psych: Normal mood and affect Neuro: AAO x 3, strength intact bilaterally and rated 5/5, no motor deficits, speech is clear, no peripheral sensory deficits Skin: jaundiced Results & Data Results & Data ([facility]) Vital Signs (Past 12 Hours) Vital Signs Temp Pulse Resp BP Pulse Ox O2 Del Method 01/16/22 12:53 Room Air 01/16/22 11:00 72 18 137/73 97 01/16/22 10:09 77 18 124/56 L 96 01/16/22 09:09 72 16 135/60 94 01/16/22 08:39 74 18 105/49 L 95 01/16/22 08:24 36.8 C 86 20 117/41 L 94 01/16/22 08:09 36.8 C 73 18 125/54 L 95 01/16/22 07:00 77 18 96 01/16/22 07:00 111/62 01/16/22 06:30 86 24 95 01/16/22 06:30 115/66 01/16/22 06:00 91 H 26 H 96 01/16/22 06:00 129/56 L 01/16/22 05:30 82 26 H 97 01/16/22 05:30 126/59 L 01/16/22 05:00 83 14 95 01/16/22 05:00 123/55 L 01/16/22 04:30 82 13 95 01/16/22 04:30 112/46 L 01/16/22 04:00 79 18 95 01/16/22 04:00 113/54 L 01/16/22 03:30 83 13 95 01/16/22 03:30 110/52 L 01/16/22 03:00 84 24 94 Laboratory Results Abnormal lab results 01/16/22 01/16/22 01/16/22 Range/Units 03:11 03:11 05:47 RBC 1.51 L (4.63-6.08) M/uL Hgb 5.7 L* (14.0-18.0) g/dl Hct 17.7 L* (40.1-51.0) % MCV 117.2 H (80.0-100.0) fL MCH 37.7 H (25.0-34.0) pg RDW Std Deviation 81.0 H (36.4-46.3) fL RDW Coeff of Abhinav 19.3 H (11.5-14.5) % Plt Count 39 L (130-400) K/uL Reticulocyte % (Auto) (0.5-2.0) % Lymph # (Auto) 0.99 L (1.2-3.4) K/uL Immature Gran # (Auto) 0.03 H (0.00-0.02) K/uL PT (9.0-12.0) Seconds INR (0.9-1.1) Sodium 132 L (136-145) mmol/L Carbon Dioxide 20 L (21-32) mmol/L BUN 33 H (6-23) mg/dl Creatinine 2.43 H (0.6-1.4) mg/dl Glucose 136 H (70-99(Fasting)) mg/dl Total Bilirubin 10.4 H (0.2-1.0) mg/dl Direct Bilirubin (0-0.2) mg/dl AST 63 H (13-39) U/L Alkaline Phosphatase 178 H (34-104) U/L Ammonia (18-72) umol/L Lactate Dehydrogenase (86-244) U/L Troponin I High Sens (0-20) pg/ml Total Protein 5.6 L (6.0-8.3) gm/dl Albumin 2.1 L (3.4-5.0) gm/dl Albumin/Globulin Ratio 0.6 L (0.9-2) Urine Bilirubin (Negative) Ur Leukocyte Esterase (Negative) U Hyaline Cast (Auto) (0-5) /lpf U Epithel Cells (Auto) (0-5) /lpf Granular Casts (0) /lpf Nasal Screen MRSA (PCR) (Negative) Crossmatch See Detail 01/16/22 01/16/22 01/16/22 Range/Units 05:47 06:00 06:00 RBC (4.63-6.08) M/uL Hgb (14.0-18.0) g/dl Hct (40.1-51.0) % MCV (80.0-100.0) fL MCH (25.0-34.0) pg RDW Std Deviation (36.4-46.3) fL RDW Coeff of Abhinav (11.5-14.5) % Plt Count (130-400) K/uL Reticulocyte % (Auto) (0.5-2.0) % Lymph # (Auto) (1.2-3.4) K/uL Immature Gran # (Auto) (0.00-0.02) K/uL PT 25.1 H (9.0-12.0) Seconds INR 2.5 H (0.9-1.1) Sodium (136-145) mmol/L Carbon Dioxide (21-32) mmol/L BUN (6-23) mg/dl Creatinine (0.6-1.4) mg/dl Glucose (70-99(Fasting)) mg/dl Total Bilirubin (0.2-1.0) mg/dl Direct Bilirubin (0-0.2) mg/dl AST (13-39) U/L Alkaline Phosphatase (34-104) U/L Ammonia 115.0 H (18-72) umol/L Lactate Dehydrogenase (86-244) U/L Troponin I High Sens 43.6 H (0-20) pg/ml Total Protein (6.0-8.3) gm/dl Albumin (3.4-5.0) gm/dl Albumin/Globulin Ratio (0.9-2) Urine Bilirubin (Negative) Ur Leukocyte Esterase (Negative) U Hyaline Cast (Auto) (0-5) /lpf U Epithel Cells (Auto) (0-5) /lpf Granular Casts (0) /lpf Nasal Screen MRSA (PCR) (Negative) Crossmatch 01/16/22 01/16/22 01/16/22 Range/Units 06:02 06:02 06:10 RBC (4.63-6.08) M/uL Hgb (14.0-18.0) g/dl Hct (40.1-51.0) % MCV (80.0-100.0) fL MCH (25.0-34.0) pg RDW Std Deviation (36.4-46.3) fL RDW Coeff of Abhinav (11.5-14.5) % Plt Count (130-400) K/uL Reticulocyte % (Auto) 5.8 H (0.5-2.0) % Lymph # (Auto) (1.2-3.4) K/uL Immature Gran # (Auto) (0.00-0.02) K/uL PT (9.0-12.0) Seconds INR (0.9-1.1) Sodium (136-145) mmol/L Carbon Dioxide (21-32) mmol/L BUN (6-23) mg/dl Creatinine (0.6-1.4) mg/dl Glucose (70-99(Fasting)) mg/dl Total Bilirubin (0.2-1.0) mg/dl Direct Bilirubin (0-0.2) mg/dl AST (13-39) U/L Alkaline Phosphatase (34-104) U/L Ammonia (18-72) umol/L Lactate Dehydrogenase 258 H (86-244) U/L Troponin I High Sens (0-20) pg/ml Total Protein (6.0-8.3) gm/dl Albumin (3.4-5.0) gm/dl Albumin/Globulin Ratio (0.9-2) Urine Bilirubin 1+ H (Negative) Ur Leukocyte Esterase Trace H (Negative) U Hyaline Cast (Auto) >30 H (0-5) /lpf U Epithel Cells (Auto) >30 H (0-5) /lpf Granular Casts 5-10 H (0) /lpf Nasal Screen MRSA (PCR) (Negative) Crossmatch 01/16/22 01/16/22 01/16/22 Range/Units 12:00 12:30 12:30 RBC 1.81 L (4.63-6.08) M/uL Hgb 6.4 L* (14.0-18.0) g/dl Hct 19.5 L* (40.1-51.0) % MCV 107.7 H D (80.0-100.0) fL MCH 35.4 H (25.0-34.0) pg RDW Std Deviation 93.5 H (36.4-46.3) fL RDW Coeff of Abhinav 24.3 H (11.5-14.5) % Plt Count 35 L (130-400) K/uL Reticulocyte % (Auto) (0.5-2.0) % Lymph # (Auto) 1.10 L (1.2-3.4) K/uL Immature Gran # (Auto) 0.04 H (0.00-0.02) K/uL PT (9.0-12.0) Seconds INR (0.9-1.1) Sodium 132 L (136-145) mmol/L Carbon Dioxide (21-32) mmol/L BUN 35 H (6-23) mg/dl Creatinine 2.31 H (0.6-1.4) mg/dl Glucose 115 H (70-99(Fasting)) mg/dl Total Bilirubin 10.7 H (0.2-1.0) mg/dl Direct Bilirubin 3.2 H (0-0.2) mg/dl AST 64 H (13-39) U/L Alkaline Phosphatase 157 H (34-104) U/L Ammonia (18-72) umol/L Lactate Dehydrogenase (86-244) U/L Troponin I High Sens (0-20) pg/ml Total Protein 5.7 L (6.0-8.3) gm/dl Albumin 2.1 L (3.4-5.0) gm/dl Albumin/Globulin Ratio (0.9-2) Urine Bilirubin (Negative) Ur Leukocyte Esterase (Negative) U Hyaline Cast (Auto) (0-5) /lpf U Epithel Cells (Auto) (0-5) /lpf Granular Casts (0) /lpf Nasal Screen MRSA (PCR) Positive A (Negative) Crossmatch Diagnostic Findings Chest X-Ray 01/16/22 02:46 XR chest 1V portable HISTORY: 66 years-old Male Dyspnea acute shortness of breath. COMPARISON: Chest radiograph 10/02/2021 TECHNIQUE: AP view of the chest FINDINGS: Cardiac silhouette is enlarged. No pneumothorax. Pulmonary vascular congestion with interstitial coarsening. Moderate left pleural effusion with left basilar consolidation/volume loss. Degenerative changes of the shoulders and spine. IMPRESSION: 1. Cardiomegaly with pulmonary edema. 2. Moderate left pleural effusion with left basilar consolidation. ACT 112: Negative or not required by law. The above report was generated using voice recognition software. It may contain grammatical, syntax or spelling errors. Electronically signed by: Navi Lindsey M.D. 01/16/2022 8:13 AM Liver Ultrasound 01/16/22 08:57 US liver HISTORY: 66 years-old Male Abnormal LFTs elevated LFTs in a patient with prior TIPS procedure and cirrhosis COMPARISON: Abdominal ultrasound 02/17/2020 TECHNIQUE: Multiple real-time sonographic images of the right upper quadrant abdomen were obtained assessing grayscale appearance, color and spectral flow FINDINGS: Limited study secondary to patient body habitus and condition. The pancreas is obscured by bowel gas. The liver measures 10.9 cm in length with cirrhotic morphology. No hepatic mass identified. Patent tips shunt. Peak systolic velocities measuring up to 177 cm/s. Small volume of upper abdominal ascites. The visualized gallbladder is unremarkable without cholelithiasis identified. Normal common bile duct, 7 mm. The right kidney is not diagnostically visualized. Left pleural effusion. IMPRESSION: 1. Limited exam as above. 2. Cirrhotic liver with patent TIPS shunt. 3. Small volume ascites with left pleural effusion. ACT 112: Negative or not required by law. The above report was generated using voice recognition software. It may contain grammatical, syntax or spelling errors. Electronically signed by: Navi Lindsey M.D. 01/16/2022 11:49 AM PG Care Time/CCT Total # of Minutes Spent Total Time Spent with Patient: Total time spent is greater than 50% in coordination of care (as documented) at patient's floor/unit and/or counseling patient: Coding Level of Care Code 87144 Subseq Hosp Care Lvl 3 Diagnoses Fall W19.XXXA Anemia D64.9 Nonalcoholic fatty liver disease K76.0 Acute kidney injury superimposed on CKD N17.9; N18.9 Hypercholesterolemia E78.00 Gout, joint M10.9
[2022-01-16] MEDS ORDERED: LACTULOSE 200GM/700ML WTR ENEMA PR SCH (16:45)
[2022-01-16] MEDS ORDERED: FUROSEMIDE 40 MG/4 ML VIAL IV ONE (17:15)
[2022-01-16] MEDS: LOVASTATIN 20 MG TAB PO SCH (20:33)
--- NOTE | 2022-01-16 21:31 | Communication Note ---
Date of Service: January 16, 2022 ordered condom cath but patient did not tolerate 2/2 retention and incontinence per nursing. ordering ram AM labs. Hb 7.0. asymptomatic/sleeping. deferring to dayshift for management
[2022-01-16 22:17] LABS: Hematocrit (blood only) 21.3 % (40.1-51.0); Hemoglobin 7.3 g/dl (14.0-18.0); Mean Corpuscular Hemoglobin 35.4 pg (25.0-34.0); Mean Corpuscular Hgb Conc 34.3 g/dL (32.0-36.0); Mean Corpuscular Volume 103.4 fL (80.0-100.0); Mean Platelet Volume 11.6 fL (9.4-12.4); Platelet Count 42 K/uL (130-400); RDW Coefficient of Variation 26.3 % (11.5-14.5); RDW Standard Deviation 95.5 fL (36.4-46.3); Red Blood Count 2.06 M/uL (4.63-6.08)
[2022-01-16 22:22] LABS: Platelet Estimate Decreased (Normal)
[2022-01-16 22:40] LABS: Vitamin B12 > 1500 pg/ml (180-914)
[2022-01-17 04:28] LABS: INR 2.3 (0.9-1.1); Prothrombin Time 23.3 Seconds (9.0-12.0)
[2022-01-17 04:39] LABS: Albumin Globulin Ratio 0.6 (0.9-2); Albumin Level 2.1 gm/dl (3.4-5.0); Bilirubin,Total 11.6 mg/dl (0.2-1.0); Calcium 8.3 mg/dl (8.5-10.1); Creatinine Clr Calc Pharmacy 43.7 ml/min; Est GFR (African American) 33.3 ml/min; Est GFR (Non-African American) 28.7 ml/min; Globulin 3.6 gm/dl (2.5-4.0); Potassium 3.6 mmol/L (3.5-5.1); Total Protein 5.7 gm/dl (6.0-8.3)
[2022-01-17 05:30] LABS: Hematocrit (blood only) 20.4 % (40.1-51.0); Mean Corpuscular Hemoglobin 35.4 pg (25.0-34.0); Mean Corpuscular Hgb Conc 34.3 g/dL (32.0-36.0); Mean Platelet Volume 10.7 fL (9.4-12.4); Platelet Count 36 K/uL (130-400); Red Blood Count 1.98 M/uL (4.63-6.08); White Blood Count 6.37 K/ul (4.8-10.8)
[2022-01-17 05:31] LABS: Basophils # (auto) 0.05 K/uL (0-0.2); Basophils % (auto) 0.8 %; Eosinophils # (auto) 0.21 K/uL (0-0.50); Eosinophils % (auto) 3.3 %; Immature Granulocytes # (auto) 0.05 K/uL (0.00-0.02); Immature Granulocytes % (auto) 0.8 %; Lymphocytes # (auto) 1.26 K/uL (1.2-3.4); Lymphocytes % (auto) 19.8 %; Monocytes # (auto) 0.74 K/uL (0.24-0.82); Monocytes % (auto) 11.6 %; Neutrophils # (auto) 4.06 K/uL (1.4-6.5); Neutrophils % (auto) 63.7 %
[2022-01-17] MEDS: LACTULOSE SYRUP 20 GM/30 ML UDC PO SCH ×3 (08:15→21:04)
[2022-01-17] MEDS: ZINC SULFATE 220 MG CAPSULE PO SCH (08:15)
[2022-01-17] MEDS: rifAXIMin 550 MG TABLET PO SCH ×2 (08:16→21:05)
[2022-01-17] MEDS: PANTOprazole 40 MG in SYRINGE 0 ML IV SCH ×2 (08:18→21:11)
[2022-01-17] MEDS: FUROSEMIDE 40 MG/4 ML VIAL IV SCH (08:21)
[2022-01-17] MEDS ORDERED: SODIUM CHLORIDE 0.9% 250 ML IV PRN (08:41)
[2022-01-17] MEDS: ONDANSETRON INJ 2 MG/ML 2 ML VIAL IV PRN (09:29)
--- NOTE | 2022-01-17 09:29 | Palliative Care Consultation ---
Date of Consultation January 17, 2022 Assessment & Plan (1) Palliative care encounter: I met with pt, at bedside. We were joined by Dr. Garcia as well. shares they both worked for [facility] [employer] [facility] [employer]. 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 They have 2 daughters who live nearby, all are engaged and aware of pt medical issue. shares he has been declining for the past 6 mos, but more noticeably over the past 1-2 months, since October admission. She shares that the transplant team had advised he is too weak/deconditioned for transplant: "they said he wouldn't make it off the table and so the surgery wasn't safe to do anymore because he's just too weak." asks about inpatient hospice facilities. When we explored this further, she shared that she felt he may not have much time left given how progressively weaker he has become. She notes that there is not much that can be "permanently" fixed at this point. She feels home hospice is not an option because she would be alone in caring for pt and cannot meet his physical needs on her own/she has her own health issues to deal with as well. I reviewed with Mr. and Mrs. Shi that there are unfortunately no area inpatient hospice facilities, however he would be eligible for comfort care at a local detention (she favors [facility], where her mother was placed for EOL care and she felt they gave excellent care) vs potentially seeking inpatient hospice placement at [facility] in [place]. This is not as close to their home in [place], but would be manageable for and family to visit. Ideally, would prefer a local SNF with hospice added if that could be done. I advised her we would defer that to Care mgt to assist us with determining. (2) Advanced care planning/counseling discussion: and patient acknoweldge he has been declining for a few months. feels these are signs they are reaching potentially a point where time is short. I expressed my agreement with her intuition. She wants to support her in his wishes and also notes he has told her in recent weeks that he wants to . She has been keeping their daughters updated. code status discussed. pt affirms a no code/DNR/DNI, does not want to be placed on life support. Dr. Mccarty was able to speak with [facility] hepatology. They agree pt is no longer a transplant candidate and did not feel a transfer was warranted. Him Coder was in agreement with transitioning to a plan of care more focused on comfort with hospice. (3) Weakness generalized: (4) Fall: (5) End stage liver disease: (6) CKD (chronic kidney disease), stage III: Plan Discussions as noted above. Code status affirmed as no code, pt elects DNR/DNI is leaning towards comfort care but does want to speak with their daughters first. She would like inpatient hospice ([facility]) vs SNF with comfort care and hospice if possible, top choice is [facility] where her mother was placed for EOL care with hospice added. History of Present Illness Reason for Consultation: "end stage liver disease" Attending Physician: Beata Garcia MD History of Present Illness Arnoldo Shi is a 66yo male admitted 01/16/22 s/p fall at home without LOC or resulting head trauma. Found to be anemic, hx gastric varices and LIU s/p TIPS. Due to progressive weakness and declining PS, he is no longer a candidate for liver transplant. The admitting note excellently summarized as follows: "Arnoldo Shi is a 66yo male with history of LIU Cirrhosis - history of variceal hemorrhage in 2020, history of TIPS procedure in 2019. 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 Patient follows with [facility]. Per , he was previously [place] [facility] [place] no [place] a valid [place]. He was being considered for transplant at [facility] but was denied due to his progressive weakness. states he is no longer being considered for transplant. Patient presents today after a fall at home. He got up to use the bathroom and tipped over while using his walker. Patient denies head trauma or loss of consciousness. No acute pain. He reports he was unable to get up due to weakness therefore EMS was called. Patient reports that he "feels crappy" all the time. He denies fever, chills, cough, chest pain, palpitations, abdominal pain, nausea, vomiting, diarrhea. He does have persistent and progressive SOB as well as bilateral LE edema. He denies melena/hematochezia or hematuria. He is having a difficult time urinating." Additional comorbidities include the following: BPH with obstruction/lower urinary tract symptoms Diabetes mellitus GERD without esophagitis Gout, joint History of adenomatous polyp and tubular adenoma of colon Hypercholesterolemia Hyperglobulinemia Obesity Osteoporosis Pancytopenia CKD Stage 3 Vitamin D deficiency I met with pt and at bedside. Pt has variable attentiveness and will occasionally drift off. Allergies Allergy/AdvReac Type Severity Reaction Status Date / Time simvastatin AdvReac Unknown Gastrointestinal Verified 01/11/22 14:36 Upset tramadol AdvReac Unknown dizzy Verified 01/11/22 14:36 Home Medications Medication Instructions Recorded Confirmed Type acetaminophen 500 mg tablet 1,000 mg PO Q6H PRN Pain 11/17/19 01/11/22 History (Tylenol Extra Strength) fluticasone propionate 50 2 spray intranasal DAILY PRN 06/14/20 01/11/22 History mcg/actuation nasal Congestion spray,suspension multivitamin (Daily Multi-Vitamin 1 tab PO DAILY 07/06/20 01/11/22 History tablet) hydrocortisone 2.5 % topical 1 applic topical .COMPLEX #20 grams 05/02/21 01/11/22 Rx ointment blood sugar diagnostic (Accu-Chek #100 ea 05/30/21 01/11/22 Rx Latasha Plus test strips) pantoprazole 40 mg tablet,delayed 40 mg PO DAILY gerd #90 tabs 05/30/21 01/11/22 Rx release allopurinol 100 mg tablet 100 mg PO DAILY #90 tabs 07/24/21 01/11/22 Rx furosemide 20 mg tablet 40 mg PO DAILY edema #180 tabs 08/09/21 01/11/22 Rx lactulose 20 gram/30 mL oral 20 g (30 mL) PO TID #3,000 mL 08/15/21 01/11/22 Rx solution Wheeled Walker #1 ea 09/29/21 01/11/22 Rx fluocinonide 0.05 % topical cream 1 applic topical BID #60 grams 09/29/21 1 Rx cetirizine 5 mg-pseudoephedrine ER 1 tab PO Q12H PRN Allergy Symptoms 10/19/21 01/11/22 History 120 mg tablet,extended release,12hr (Zyrtec-D) cholecalciferol (vitamin D3) 50 50 mcg PO DAILY 10/19/21 01/11/22 History mcg (2,000 unit) tablet (Vitamin D3) multivitamin 1 tab PO DAILY 10/19/21 01/11/22 History rifaximin 550 mg tablet (Xifaxan) See Rx Instructions .Route 11/06/21 01/11/22 Rx .COMPLEX #60 tabs lovastatin 40 mg tablet 40 mg PO HS 90 days #90 tabs 12/07/21 01/11/22 Rx potassium chloride 20 mEq/15 mL 20 meq (15 mL) PO BID #1,500 mL 12/29/21 01/11/22 Rx oral liquid ondansetron 4 mg disintegrating 4 mg PO Q8H PRN nausea and 01/11/22 01/11/22 Rx tablet vomiting #30 tabs Patient History Medical History Abnormal liver function test Acute sinusitis BPH with obstruction/lower urinary tract symptoms Cat bite Cellulitis Dermatitis Diabetes mellitus GERD without esophagitis Gout, joint History of adenomatous polyp of colon Hypercholesterolemia Hyperglobulinemia Internal hemorrhoids Nonalcoholic fatty liver disease Nonalcoholic steatohepatitis Obesity Osteoporosis Pancytopenia Stage 3b chronic kidney disease Tubular adenoma of colon Vitamin D deficiency Surgical History H/O umbilical hernia repair Status post appendectomy Status post repair of ligament of ankle Left Achilles tendon surgery Family History Father Colorectal cancer Mother Lymphoma Aunt Ovarian cancer Denies family history of Prostate cancer Myocardial infarction Breast cancer Social History Smoking Status: Former smoker Tobacco Type: Smokeless Tobacco (Dip or Chew) Second Hand Exposure: No; Hx Alcohol Use: No Hx Substance Use: No Preferred Language: Somali Communication Ability: Effective Visual Impairment: Limited Hearing Ability: Normal Carpet Installation Specialist Required: No Beliefs That Will Affect Care: None marital status: Current Living Situation: Spouse current occupational status: retired current occupation: [employer] Feels Safe at Home: Yes Childhood Exposure to Second-Hand Smoke: Yes caffeine: Yes during the past year weight has: remained stable Dental Care, Regularly: Yes Physical Activity Frequency: 3-4 Times per Week Physical Activity Frequency Comment: Walking > 15-20 minutes Seatbelt Use: always Sunscreen Use: No Assistive Devices: Walker Review of Systems Review of Systems: All systems reviewed & are unremarkable except as noted in HPI & below and Unobtainable due to cognitive status Physical Exam Physical Exam: Chronically ill appearing male, appears older than stated age, intermittent confusion present. There is bitemp wasting. pupils reactive but slightly slower than expected. He is jaundiced. He has generalized weakness. He cannot consistently follow commands. He has mild JVD. Resp effort seems mildly increased. NO audible stridor. Lungs mildly diminished. Abd distended. mild guarding. Extremities weak. There is some moderate edema. Scattered ecchymoses noted. Mildly diaphoretic. Results & Data ([facility]) Vital Signs (Past 12 Hours) Vital Signs Temp Pulse Pulse Resp BP Pulse Ox O2 Del Method 01/17/22 04:17 36.8 C 90 16 123/72 96 Room Air 01/17/22 00:42 89 01/16/22 23:40 36.8 C 95 H 16 151/82 H 97 Room Air Laboratory Results Labs and imaging reviewed Diagnostic Findings Labs and imaging reviewed. PG Care Time/CCT Total # of Minutes Spent Total Time Spent: 70 Total Time Spent with Patient: Total time spent is greater than 50% in coordination of care (as documented) at patient's floor/unit and/or counseling patient: I spent 70 minutes overall addressing this case: 10 in medical data review/discussion with referring provider(s) and/or preparation for the visit 20 in direct interaction with the patient and 20 Advance Care Planning/Goals of Care discussions as detailed above in note (must be >16min): pt has AD, elects no code 10 in subsequent review and synthesis of assessment and plan 10 in communicating with other providers regarding the patient's case: nursing, primary team, family Coding Level of Care Code New Pt ADVNCD CARE PLAN 30 MIN Patient Type New History Comprehensive Exam Comprehensive Medical Decision Making High Complexity Diagnoses Palliative care encounter Z51.5 Advanced care planning/counseling discussion Z71.89 Weakness generalized R53.1 Fall W19.XXXA End stage liver disease K72.10 CKD (chronic kidney disease), stage III N18.30
--- NOTE | 2022-01-17 10:18 | Gastroenterology Progress Note ---
Date of Service January 17, 2022 Assessment & Plan (1) End stage liver disease: Plan: - will await palliative input. per chart, no longer a candidate for liver transplant. - continue coreg 3.125mg bid, xifaxan 550mg bid, lactulose 20gm TID, zinc sulfate 220mg once daily. (2) Anemia: Plan: -no signs of active bleeding at this time. if develops active bleeding would transfer out to facility with IR given history of varices and hemorrhage. - follow H/H. Admission and Anticipated Discharge Date Admission Date: January 16, 2022 Subjective Patient is more alert today. He denies any nausea, vomiting, heartburn, dysphagia, abdominal pain, change in bowels, melena, or brbpr. Spoke with nursing and no signs of active GI bleeding. Hgb improved from 5.7 to 7. he is jaundiced. t bili compa from 10.4 to 11.6. Palliative consulted also to see patient. Physical Exam Constitutional: WD/WN, vitals as above Respiratory: normal respiratory effort, lungs clear to auscultation Cardiovascular: RRR, no murmur, no edema Gastrointestinal (Abdomen): normal bowel sounds, nontender Skin: no rashes, warm and dry Psychiatric: Orientation: alert and oriented x 3 Affect: euthymic affect Results & Data Results & Data ([facility]) Vital Signs (Past 12 Hours) Vital Signs Temp Pulse Pulse Resp BP BP Pulse Ox 01/17/22 09:27 36.6 C 91 H 16 117/61 97 01/17/22 09:59 36.7 C 96 H 20 135/56 L 98 01/17/22 09:44 36.6 C 100 H 20 120/56 L 98 01/17/22 04:17 36.8 C 90 16 123/72 96 01/17/22 00:42 89 01/16/22 23:40 36.8 C 95 H 16 151/82 H 97 O2 Del Method 01/17/22 09:27 01/17/22 09:59 01/17/22 09:44 01/17/22 04:17 Room Air 01/17/22 00:42 01/16/22 23:40 Room Air PG Care Time/CCT Total # of Minutes Spent Total Time Spent with Patient: Total time spent is greater than 50% in coordination of care (as documented) at patient's floor/unit and/or counseling patient: Coding Level of Care Code 02501 Subseq Hosp Care Lvl 3 Diagnoses End stage liver disease K72.10 Anemia D64.9
[2022-01-17] MEDS ORDERED: PROCHLORPERAZINE 5 MG in SYRINGE 4 ML IV PRN (11:51)
[2022-01-17] MEDS: carvediloL 3.125 MG TAB PO SCH (21:05)
[2022-01-17] MEDS: LOVASTATIN 20 MG TAB PO SCH (21:05)
--- NOTE | 2022-01-18 00:03 | Hospitalist Progress Note ---
Date of Service January 17, 2022 Assessment & Plan (1) Anemia: Plan: 66 yo male with history of LIU-cirrhosis s/p TIPS in 2019 presenting with fall from home. Patient denies loss of consciousness or head trauma. Fall most likely secondary to patient's chronic medical conditions, decompensation and anemia. No pain. Acute blood loss anemia in setting of chronic anemia Hgb=5.7 on arrival LTD=557.2. secondary to GI losses and possibly hemolysis- patient with history of gastric varices as well as GAVE. Possibly post-TIPS hemolysis given marked elevation in Tbili as well but LDH normal -B12 and folate normal -transfuse another unit PRBCs today (2) Acute upper GI bleed: Plan: with hematemesis on 01/17, small amount, likely 2/2 GAVE and not from variceal bleed remains HD stable hgb only up to 7.0 despite 2 units PRBCs on 01/16 transfuse 1 unit PRBCs and platelets today -continue Protonix 40mg IV bid -EGD tomorrow -keep NPO antiemetics prn -follow CBC (3) Nonalcoholic fatty liver disease: Plan: Patient with cirrhosis secondary to LIU, s/p TIPS. Concern for decompensation - patient with anemia, thrombocytopenia hyponatremia, BIA,, Tbili of 10.4 (increased from 6.4 in August 2021), SD=428. Albumin is stable at 2.1. No ascites present on exam. Per , patient is no longer being considered for transplant due to progression of weakness and debility MELD score 34, mortality risk 56% next 3 months-d/w patient and Considering hospice I discussed with Hepatology Dr. Burris at [facility] on phone 01/17--> not candidate for transplant eval and no need for transfer RUQUS: cirrhotic liver with TIPS shunt, small volume ascites, left pleural effusion GI consultation appreciated Palliative care consulted. -follow CBC, CMP, INR in AM (4) Hepatic encephalopathy: Plan: improving since admission, moving bowels today continue lactulose tid continue rifaximin (5) Thrombocytopenia: Plan: plts low at 36 given ongoing UGI bleeding, transfuse platelets x 1 pack now follow CBC B12 checked and normal (6) Acute kidney injury superimposed on CKD: Plan: -Patient with BIA on CKD. BUN of 33 and Cr of 2.43 which is increased from 16 and 1.59, respectively on 09/26/21. Patient was recently placed on increased dose of Lasix, ?pre-renal. Concern for hepatorenal syndrome as well -Check UA--> granular casts, hyaline casts, 1+ bili, trace leuk esterase -Check urine Na < 10, Cr 106, and urea pending -sql server bi developer slight improvement today after volume expansion with PRBCs--> sql server bi developer now 2.2 -Avoid nephrotoxic agents -Renal dosing where needed -Consider Nephrology consultation (7) GAVE (gastric antral vascular ectasia): Plan: with recent APC 12/20/21 likely cause of current nausea and UGI bleeding EGD tomorrow (8) Cirrhosis: Plan: 04/19 LIU now moved to inactive status on liver transplant list too deconditioned to tolerate transplant Appreciate Palliative Consult leaning towards pursuing hospice family to discuss continue Rifaximin, lactulose GI started Coreg continue IV lasix for now for significant peripheral edema (9) Hypercholesterolemia: Plan: Chronic -Continue Lovastatin 40mg po daily (10) Gout, joint: Plan: Chronic -Hold Allopurinol for now given renal compromise (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: Plan: had urinary retention Frederick placed (12) Fall: Plan: 04/19 HE, weakness from anemia -Fall precautions -PT/OT Plan Dipos-continued stay PCU Spent 90 min in prolonged service time of this patient in discussing care with specialists, reaching out to specialists at outside facilities, interpreting results and discussing goasl of care with patient and If decompensates, likely pursue comfort. Admission and Anticipated Discharge Date Admission Date: January 16, 2022 Subjective Pt very drowsy but does wake up easily and answer questions. He reports ongoing nausea and dry heaving. I witnessed him vomit up red tinged liquid with a single 50 cent piece clot in it. He denies abd pain, CP, SOB, lightheadedness. His then came in the room and together we all discussed goals of care. I reached out and spoke to the Bobtailer at [facility] who agreed he is not a candidate for transplant and that EGD should be done locally as it seemed like his current bleeding was more likely small amounts related to GAVE rather than a variceal bleed. Discussed with Dr. Redd of GI here who will consider EGD tomorrow after transfusional support given today. and pt leaning towards enrolling in hospice. Tele with NSR normal rates Review of Systems Review of Systems: All systems reviewed & are unremarkable except as noted in HPI & below Physical Exam Constitutional: WD/WN, vitals as above + ill appearing Eyes: + scleral abnormality (icterus) ENMT: external ear and nose normal, oropharynx normal Neck: trachea midline, no thyromegaly Respiratory: normal respiratory effort, lungs clear to auscultation Cardiovascular: Rate/Rhythm: regular rate and regular rhythm Extremities: + edema (3+ pitting edema to this thighs bilat) Chest (Breasts): Chest: normal inspection of chest Gastrointestinal (Abdomen): Inspection/Auscultation: normal bowel sounds; abdomen not distended Percussion/Palpation: abdomen soft; abdomen nontender Musculoskeletal: Extremities: no cyanosis and no clubbing Skin: + jaundice Neurologic: moves all extremities and awake; no focal motor deficits some asterixis Psychiatric: Orientation: oriented x 3 and cooperative; + not alert (very drowsy, falls asleep frequently) Genitourinary: Frederick in place draining clear dark yellow urine Results & Data Results & Data ([facility]) Vital Signs (Past 12 Hours) Vital Signs Temp Pulse Pulse Resp BP BP Pulse Ox 01/17/22 23:05 85 01/17/22 23:04 36.5 C 85 16 123/52 L 96 01/17/22 20:02 36.5 C 85 16 133/58 L 96 01/17/22 16:35 37 C 92 H 20 128/54 L 96 01/17/22 14:45 37 C 83 20 130/69 97 01/17/22 14:15 37 C 102 H 22 136/74 97 01/17/22 14:00 37 C 90 20 119/67 97 01/17/22 13:52 36.6 C 90 15 121/66 98 01/17/22 11:59 36.7 C 94 H 20 130/59 L 97 O2 Del Method 01/17/22 23:05 01/17/22 23:04 Room Air 01/17/22 20:02 Room Air 01/17/22 16:35 Room Air 01/17/22 14:45 01/17/22 14:15 01/17/22 14:00 01/17/22 13:52 01/17/22 11:59 Laboratory Results 01/17/22 01/17/2201/17/22 Range/Units 18:34 16:48 04:07 WBC (4.8-10.8) K/ul RBC (4.63-6.08) M/uL Hgb (14.0-18.0) g/dl Hct (40.1-51.0) % MCV (80.0-100.0) fL MCH (25.0-34.0) pg MCHC (32.0-36.0) g/dL Plt Count (130-400) K/uL MPV (9.4-12.4) fL Immature Gran % (Auto) % Neut % (Auto) % Lymph % (Auto) % Hardee % (Auto) % Eos % (Auto) % Baso % (Auto) % Neut # (Auto) (1.4-6.5) K/uL Lymph # (Auto) (1.2-3.4) K/uL Hardee # (Auto) (0.24-0.82) K/uL Eos # (Auto) (0-0.50) K/uL Baso # (Auto) (0-0.2) K/uL Immature Gran # (Auto) (0.00-0.02) K/uL PT (9.0-12.0) Seconds INR (0.9-1.1) Sodium (136-145) mmol/L Potassium (3.5-5.1) mmol/L Chloride (98-107) mmol/L Carbon Dioxide (21-32) mmol/L Anion Gap (3-11) BUN (6-23) mg/dl Creatinine (0.6-1.4) mg/dl Est Cr Clr Drug Dosing ml/min Est GFR ( Amer) ml/min Est GFR (Non-Af Amer) ml/min BUN/Creatinine Ratio (10-20) Glucose (70-99(Fasting)) mg/dl POC Glucose 114 H (70-99) mg/dl Calcium (8.5-10.1) mg/dl Total Bilirubin (0.2-1.0) mg/dl AST (13-39) U/L ALT (7-52) U/L Alkaline Phosphatase (34-104) U/L Ammonia TNP Total Protein (6.0-8.3) gm/dl Albumin (3.4-5.0) gm/dl Globulin (2.5-4.0) gm/dl Albumin/Globulin Ratio (0.9-2) Stool Occult Bld Scrn Positive A (Negative) Blood Type Antibody Screen Crossmatch 01/17/22 01/17/22 01/17/22 Range/Units 04:07 04:07 04:07 WBC 6.37 (4.8-10.8) K/ul RBC 1.98 L (4.63-6.08) M/uL Hgb 7.0 L (14.0-18.0) g/dl Hct 20.4 L* (40.1-51.0) % MCV 103.0 H (80.0-100.0) fL MCH 35.4 H (25.0-34.0) pg MCHC 34.3 (32.0-36.0) g/dL Plt Count 36 L (130-400) K/uL MPV 10.7 (9.4-12.4) fL Immature Gran % (Auto) 0.8 % Neut % (Auto) 63.7 % Lymph % (Auto) 19.8 % Hardee % (Auto) 11.6 % Eos % (Auto) 3.3 % Baso % (Auto) 0.8 % Neut # (Auto) 4.06 (1.4-6.5) K/uL Lymph # (Auto) 1.26 (1.2-3.4) K/uL Hardee # (Auto) 0.74 (0.24-0.82) K/uL Eos # (Auto) 0.21 (0-0.50) K/uL Baso # (Auto) 0.05 (0-0.2) K/uL Immature Gran # (Auto) 0.05 H (0.00-0.02) K/uL PT 23.3 H (9.0-12.0) Seconds INR 2.3 H (0.9-1.1) Sodium 134 L (136-145) mmol/L Potassium 3.6 (3.5-5.1) mmol/L Chloride 104 (98-107) mmol/L Carbon Dioxide 22 (21-32) mmol/L Anion Gap 8 (3-11) BUN 34 H (6-23) mg/dl Creatinine 2.26 H (0.6-1.4) mg/dl Est Cr Clr Drug Dosing 43.7 ml/min Est GFR ( Amer) 33.3 ml/min Est GFR (Non-Af Amer) 28.7 ml/min BUN/Creatinine Ratio 15.0 (10-20) Glucose 114 H (70-99(Fasting)) mg/dl POC Glucose (70-99) mg/dl Calcium 8.3 L (8.5-10.1) mg/dl Total Bilirubin 11.6 H (0.2-1.0) mg/dl AST 58 H (13-39) U/L ALT 46 (7-52) U/L Alkaline Phosphatase 133 H (34-104) U/L Ammonia Total Protein 5.7 L (6.0-8.3) gm/dl Albumin 2.1 L (3.4-5.0) gm/dl Globulin 3.6 (2.5-4.0) gm/dl Albumin/Globulin Ratio 0.6 L (0.9-2) Stool Occult Bld Scrn (Negative) Blood Type Antibody Screen Crossmatch 01/16/22 Range/Units 05:47 WBC (4.8-10.8) K/ul RBC (4.63-6.08) M/uL Hgb (14.0-18.0) g/dl Hct (40.1-51.0) % MCV (80.0-100.0) fL MCH (25.0-34.0) pg MCHC (32.0-36.0) g/dL Plt Count (130-400) K/uL MPV (9.4-12.4) fL Immature Gran % (Auto) % Neut % (Auto) % Lymph % (Auto) % Hardee % (Auto) % Eos % (Auto) % Baso % (Auto) % Neut # (Auto) (1.4-6.5) K/uL Lymph # (Auto) (1.2-3.4) K/uL Hardee # (Auto) (0.24-0.82) K/uL Eos # (Auto) (0-0.50) K/uL Baso # (Auto) (0-0.2) K/uL Immature Gran # (Auto) (0.00-0.02) K/uL PT (9.0-12.0) Seconds INR (0.9-1.1) Sodium (136-145) mmol/L Potassium (3.5-5.1) mmol/L Chloride (98-107) mmol/L Carbon Dioxide (21-32) mmol/L Anion Gap (3-11) BUN (6-23) mg/dl Creatinine (0.6-1.4) mg/dl Est Cr Clr Drug Dosing ml/min Est GFR ( Amer) ml/min Est GFR (Non-Af Amer) ml/min BUN/Creatinine Ratio (10-20) Glucose (70-99(Fasting)) mg/dl POC Glucose (70-99) mg/dl Calcium (8.5-10.1) mg/dl Total Bilirubin (0.2-1.0) mg/dl AST (13-39) U/L ALT (7-52) U/L Alkaline Phosphatase (34-104) U/L Ammonia Total Protein (6.0-8.3) gm/dl Albumin (3.4-5.0) gm/dl Globulin (2.5-4.0) gm/dl Albumin/Globulin Ratio (0.9-2) Stool Occult Bld Scrn (Negative) Blood Type O Positive Antibody Screen NEGATIVE Crossmatch See Detail PG Care Time/CCT Total # of Minutes Spent Total Time Spent with Patient: Total time spent is greater than 50% in coordination of care (as documented) at patient's floor/unit and/or counseling patient: Prolonged Care Time Prolonged Care Time: Yes Total Prolonged Care Time: 90 I spent 90 min in prolonged service time of this patient Coding Level of Care Code 93311 Subseq Hosp Care Lvl 3 (25 - SIGNIFICANT, SEPARATELY IDENTIFIABLE ) Diagnoses Anemia D64.9 Acute upper GI bleed K92.2 Nonalcoholic fatty liver disease K76.0 Hepatic encephalopathy K76.82 Thrombocytopenia D69.6 Acute kidney injury superimposed on CKD N17.9; N18.9 GAVE (gastric antral vascular ectasia) K31.819 Cirrhosis K74.69 Hepatic cirrhosis type: other cirrhosis Hypercholesterolemia E78.00 Gout, joint M10.9 BPH with obstruction/lower urinary tract symptoms N40.1; N13.8 Fall W19.XXXA Additional Codes Prolonged Care Time - Prolonged Care Time: Yes ([id number]) (1) Cirrhosis Hepatic cirrhosis type: other cirrhosis Qualified Code(s): K74.69 - Other cirrhosis of liver
[2022-01-18 05:08] LABS: INR 2.3 (0.9-1.1); Prothrombin Time 23.3 Seconds (9.0-12.0)
[2022-01-18 05:18] LABS: Albumin Globulin Ratio 0.5 (0.9-2); Albumin Level 1.9 gm/dl (3.4-5.0); BUN Creatinine Ratio 16.4 (10-20); Bilirubin,Total 10.8 mg/dl (0.2-1.0); Creatinine Clr Calc Pharmacy 47.7 ml/min; Est GFR (Non-African American) 31.9 ml/min; Globulin 3.5 gm/dl (2.5-4.0); Magnesium 2.1 mg/dl (1.7-2.4); Potassium 3.4 mmol/L (3.5-5.1); Total Protein 5.4 gm/dl (6.0-8.3)
[2022-01-18 06:05] LABS: Basophils # (auto) 0.05 K/uL (0-0.2); Basophils % (auto) 0.8 %; Eosinophils # (auto) 0.31 K/uL (0-0.50); Eosinophils % (auto) 4.7 %; Hematocrit (blood only) 23.8 % (40.1-51.0); Immature Granulocytes # (auto) 0.06 K/uL (0.00-0.02); Immature Granulocytes % (auto) 0.9 %; Lymphocytes % (auto) 22.8 %; Mean Corpuscular Hemoglobin 33.2 pg (25.0-34.0); Mean Corpuscular Hgb Conc 33.6 g/dL (32.0-36.0); Mean Corpuscular Volume 98.8 fL (80.0-100.0); Mean Platelet Volume 10.3 fL (9.4-12.4); Monocytes # (auto) 0.68 K/uL (0.24-0.82); Monocytes % (auto) 10.4 %; Neutrophils # (auto) 3.97 K/uL (1.4-6.5); Neutrophils % (auto) 60.4 %; Platelet Count 38 K/uL (130-400); RDW Standard Deviation 91.4 fL (36.4-46.3); Red Blood Count 2.41 M/uL (4.63-6.08); White Blood Count 6.57 K/ul (4.8-10.8)
[2022-01-18 06:32] LABS: Acanthocytes 3+; Anisocytosis Present; Echinocytes 1+; Polychromasia 1+
[2022-01-18] MEDS ORDERED: POTASSIUM CHLORIDE / WTR 10 MEQ/100 ML PLCT IV ONE (08:01)
[2022-01-18] MEDS: PANTOprazole 40 MG in SYRINGE 0 ML IV SCH ×2 (09:27→19:41)
[2022-01-18] MEDS: FUROSEMIDE 40 MG/4 ML VIAL IV SCH (09:28)
[2022-01-18] MEDS: carvediloL 3.125 MG TAB PO SCH ×2 (09:28→19:43)
[2022-01-18] MEDS: LACTULOSE SYRUP 20 GM/30 ML UDC PO SCH ×3 (09:28→19:43)
[2022-01-18] MEDS: rifAXIMin 550 MG TABLET PO SCH ×2 (09:28→19:44)
--- NOTE | 2022-01-18 09:33 | Communication Note ---
Date of Service: January 18, 2022 Spoke with patient, he tells me he has decided on hospice and does not want any invasive measures done. per nursing, no signs of any active bleeding at this time. hgb improved from 7 to 8. patient is alert. jaundiced. gi ros unremarkable per patient. ok for clears from a GI standpoint.
[2022-01-18 10:36] LABS: Urea Nitrogen, Random Urine 716 mg/dL
--- NOTE | 2022-01-18 17:14 | Electrocardiogram Report ---
Test Reason : Blood Pressure : / mmHG Vent. Rate : 064 BPM Atrial Rate : 064 BPM P-R Int : 176 ms QRS Dur : 102 ms QT Int : 600 ms P-R-T Axes : 013 007 009 degrees QTc Int : 619 ms Sinus rhythm with Premature atrial complexes with occasional Premature ventricular complexes Nonspecific T wave abnormality Abnormal ECG When compared with ECG of 16-JAN-2022 02:55, Premature ventricular complexes are now Present QT has lengthened Confirmed by Bert Cornelius ([id number]) on 01/18/2022 5:13:58 PM Referred By: REFERRED SELF Confirmed By:Dennis Cornelius
[2022-01-18] MEDS: LOVASTATIN 20 MG TAB PO SCH (19:42)
--- NOTE | 2022-01-18 20:24 | Hospitalist Progress Note ---
Date of Service January 18, 2022 Assessment & Plan (1) Anemia: Plan: 66 yo male with history of LIU-cirrhosis s/p TIPS in 2019 presenting with fall from home. Patient denies loss of consciousness or head trauma. Fall most likely secondary to patient's chronic medical conditions, decompensation and anemia. No pain. Acute blood loss anemia in setting of chronic anemia Hgb=5.7 on arrival FAY=005.2. secondary to GI losses and possibly hemolysis- patient with history of gastric varices as well as GAVE. Possibly post-TIPS hemolysis given marked elevation in Tbili as well but LDH normal -B12 and folate normal -transfused PRBCs EGD cancelled as pt does not want procedure (2) Acute upper GI bleed: Plan: with hematemesis on 01/17, small amount, likely 2/2 GAVE and not from variceal bleed remains HD stable hgb now up to 8.0 after 3 units PRBCs on 01/16 and 01/17 -continue Protonix 40mg IV bid -EGD canceleed nausea improved adv diet as tolerated-go to full liquids for tomorroa AM (3) Nonalcoholic fatty liver disease: Plan: Patient with cirrhosis secondary to LIU, s/p TIPS. Concern for decompensation - patient with anemia, thrombocytopenia hyponatremia, BIA,, Tbili of 10.4 (increased from 6.4 in August 2021), HM=798. Albumin is stable at 2.1. No ascites present on exam. Per , patient is no longer being considered for transplant due to progression of weakness and debility MELD score 34, mortality risk 56% next 3 months-d/w patient and Considering hospice-now wants it I discussed with Hepatology Dr. Burris at [facility] on phone 01/17--> not candidate for transplant eval and no need for transfer RUQUS: cirrhotic liver with TIPS shunt, small volume ascites, left pleural effusion GI consultation appreciated Palliative care consulted. no need to follow labs as is going on hospice (4) Hepatic encephalopathy: Plan: improving since admission, moving bowels today continue lactulose tid continue rifaximin (5) Thrombocytopenia: Plan: plts low at 36 given ongoing UGI bleeding, transfuse platelets x 1 pack now follow CBC B12 checked and normal (6) Acute kidney injury superimposed on CKD: Plan: -Patient with BIA on CKD. BUN of 33 and Cr of 2.43 which is increased from 16 and 1.59, respectively on 09/26/21. Patient was recently placed on increased dose of Lasix, ?pre-renal. Concern for hepatorenal syndrome as well -Check UA--> granular casts, hyaline casts, 1+ bili, trace leuk esterase -Check urine Na < 10, Cr 106, and urea pending -cobol mainframe developer slight improvement today after volume expansion with PRBCs--> cobol mainframe developer now 2.07 -Avoid nephrotoxic agents -Renal dosing where needed (7) GAVE (gastric antral vascular ectasia): Plan: with recent APC 12/20/21 likely cause of current nausea and UGI bleeding now reoslved (8) Cirrhosis: Plan: 2/2 LIU now moved to inactive status on liver transplant list too deconditioned to tolerate transplant Appreciate Palliative Consult leaning towards pursuing hospice family to discuss continue Rifaximin, lactulose GI started Coreg but will dc now as going on hospice continue lasix for now for significant peripheral edema and change to po (9) Hypercholesterolemia: Plan: Chronic -Continue Lovastatin 40mg po daily (10) Gout, joint: Plan: Chronic -Hold Allopurinol for now given renal compromise (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 Admission and Anticipated Discharge Date Admission Date: January 16, 2022 Subjective no further nausea, no abd pain, toleratin gclear liquids today has chosen to go on hospice once he leaves the hospital had 2 large BMs today as per nursing Review of Systems Review of Systems: All systems reviewed & are unremarkable except as noted in HPI & below Physical Exam Constitutional: WD/WN, vitals as above + ill appearing Eyes: + scleral abnormality (icterus) Neck: trachea midline, no thyromegaly Respiratory: normal respiratory effort, lungs clear to auscultation Cardiovascular: Rate/Rhythm: regular rate and regular rhythm Extremities: + edema (3+ pitting edema to this thighs bilat) Chest (Breasts): Chest: normal inspection of chest Gastrointestinal (Abdomen): Inspection/Auscultation: normal bowel sounds; abdomen not distended Percussion/Palpation: abdomen soft; abdomen nontender Musculoskeletal: Extremities: no cyanosis and no clubbing Skin: + jaundice Neurologic: moves all extremities and awake; no focal motor deficits Psychiatric: Orientation: alert, oriented x 3 and cooperative Results & Data Results & Data ([facility] [place]) Vital Signs (Past 12 Hours) Vital Signs Temp Pulse Resp BP Pulse Ox O2 Del Method 01/18/22 20:19 Room Air 01/18/22 18:05 Room Air 01/18/22 16:00 70 13 96 Room Air 01/18/22 16:00 106/56 L 01/18/22 12:00 77 23 117/61 99 Room Air 01/18/22 08:30 36.6 C 01/18/22 11:36 Room Air 01/18/22 09:13 78 PG Care Time/CCT Total # of Minutes Spent Total Time Spent with Patient: Total time spent is greater than 50% in coordination of care (as documented) at patient's floor/unit and/or counseling patient: Coding Level of Care Code 73332 Subseq Hosp Care Lvl 2 Diagnoses Anemia D64.9 Acute upper GI bleed K92.2 Nonalcoholic fatty liver disease K76.0 Hepatic encephalopathy K76.82 Thrombocytopenia D69.6 Acute kidney injury superimposed on CKD N17.9; N18.9 GAVE (gastric antral vascular ectasia) K31.819 Cirrhosis K74.69 Hepatic cirrhosis type: other cirrhosis Hypercholesterolemia E78.00 Gout, joint M10.9 BPH with obstruction/lower urinary tract symptoms N40.1; N13.8 Fall W19.XXXA (1) Cirrhosis Hepatic cirrhosis type: other cirrhosis Qualified Code(s): K74.69 - Other cirrhosis of liver
[2022-01-19] MEDS: rifAXIMin 550 MG TABLET PO SCH ×2 (08:37→21:09)
[2022-01-19] MEDS: LACTULOSE SYRUP 20 GM/30 ML UDC PO SCH ×3 (08:37→21:09)
[2022-01-19] MEDS: PANTOprazole 40 MG in SYRINGE 0 ML IV SCH (08:37)
[2022-01-19] MEDS: FUROSEMIDE 40 MG TAB PO SCH (08:55)
--- NOTE | 2022-01-19 14:37 | Hospitalist Progress Note ---
Date of Service January 19, 2022 Assessment & Plan (1) Anemia: Plan: 66 yo male with history of LIU-cirrhosis s/p TIPS in 2019 presenting with fall from home. Patient denies loss of consciousness or head trauma. Fall most likely secondary to patient's chronic medical conditions, decompensation and anemia. No pain. Acute blood loss anemia in setting of chronic anemia Hgb=5.7 on arrival GYQ=874.2. secondary to GI losses and possibly hemolysis- patient with history of gastric varices as well as GAVE. Possibly post-TIPS hemolysis given marked elevation in Tbili as well but LDH normal -B12 and folate normal -transfused PRBCs 3 units EGD cancelled as pt does not want procedure and no further bleeding - requesting CBC today and if < 7 will transfuse one more unit in effort to "tank him up" essentially to get out of hospital to hospice, but after that, plan to transition to SOIL CHEMIST in hospital (2) Acute upper GI bleed: Plan: with hematemesis on 01/17, small amount, likely 2/2 GAVE and not from variceal bleed remains HD stable hgb up to 8.0 after 3 units PRBCs on 01/16 and 01/17 -received Protonix 40mg IV bid and transition to po now -EGD canceled nausea improved adv diet as tolerated-remain at full liquids for now as pt does not want solid foods (3) Nonalcoholic fatty liver disease: Plan: Patient with cirrhosis secondary to LIU, s/p TIPS. Concern for decompensation - patient with anemia, thrombocytopenia hyponatremia, BIA,, Tbili of 10.4 (increased from 6.4 in August 2021), OD=547. Albumin is stable at 2.1. No ascites present on exam. Per , patient is no longer being considered for transplant due to progression of weakness and debility MELD score 34, mortality risk 56% next 3 months-d/w patient and Now pursuing hospice I discussed with Hepatology Dr. Burris at [facility] on phone 01/17--> not candidate for transplant eval and no need for transfer RUQUS: cirrhotic liver with TIPS shunt, small volume ascites, left pleural effusion GI consultation appreciated Palliative care consulted. no need to follow labs as is going on hospice except one last CBC as above -plan to transition to SOIL CHEMIST today after BCC drawn if no transfusion needed (4) Hepatic encephalopathy: Plan: improving since admission but remains mildly confused and lethargic at times, moving bowels continue lactulose tid as per family request even on SOIL CHEMIST continue rifaximin for now (5) Thrombocytopenia: Plan: plts low at 36 given ongoing UGI bleeding initially, transfused platelets x 1 pack B12 checked and normal (6) Acute kidney injury superimposed on CKD: Plan: -Patient with BIA on CKD. BUN of 33 and Cr of 2.43 which is increased from 16 and 1.59, respectively on 09/26/21. Patient was recently placed on increased dose of Lasix, ?pre-renal. Concern for hepatorenal syndrome as well -Check UA--> granular casts, hyaline casts, 1+ bili, trace leuk esterase -Check urine Na < 10, Cr 106, and urea pending -goods layer slight improvement after volume expansion with PRBCs--> goods layer down to 2.07 -Avoid nephrotoxic agents -Renal dosing where needed -no further lab draws Frederick in place for retention-remain in place on SOIL CHEMIST (7) GAVE (gastric antral vascular ectasia): Plan: with recent APC 12/20/21 likely cause of current nausea and UGI bleeding now reoslved (8) Cirrhosis: Plan: 2/2 LIU now moved to inactive status on liver transplant list too deconditioned to tolerate transplant Appreciate Palliative Consult Now pursuing hospice GI started Coreg but will dc now as going on hospice continue lasix for now for significant peripheral edema (9) Hypercholesterolemia: Plan: Chronic -discontinue Lovastatin 40mg po daily on SOIL CHEMIST (10) Gout, joint: Plan: Chronic discontinue Allopurinol on SOIL CHEMIST (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 Says he does not want any solid foods. No N/V. Is moving bowels and no blood in stool. Had a long talk with and 2 daughters about his care. The wants to check one more CBC today and would want PRBC transfusion one more time if it will help him boost his blood count to be able to leave the hospital and get to hospice at a facility. After that, all in agreement to transition to SOIL CHEMIST. Pt also agreeable to this although questionable if he truly understands what I'm asking. Review of Systems Review of Systems: All systems reviewed & are unremarkable except as noted in HPI & below Physical Exam Constitutional: WD/WN, vitals as above + ill appearing and + lethargic Eyes: + scleral abnormality (icterus) Neck: trachea midline, no thyromegaly Respiratory: normal respiratory effort, lungs clear to auscultation Cardiovascular: Rate/Rhythm: regular rate and regular rhythm Extremities: + edema (3+ pitting edema to this thighs bilat) Chest (Breasts): Chest: normal inspection of chest Gastrointestinal (Abdomen): Inspection/Auscultation: normal bowel sounds; abdomen not distended Percussion/Palpation: abdomen soft; abdomen nontender Musculoskeletal: Extremities: no cyanosis and no clubbing Skin: + jaundice Neurologic: moves all extremities and awake; no focal motor deficits Psychiatric: Orientation: alert, oriented to person, oriented to place and cooperative Results & Data Results & [facility] ([facility]) Vital Signs (Past 12 Hours) Vital Signs Temp Pulse Pulse Resp BP Pulse Ox O2 Del Method 01/19/22 11:43 36.8 C 74 17 92/53 L 96 Room Air 01/19/22 08:00 36.4 C L 70 18 120/62 96 Room Air 01/19/22 08:00 Room Air 01/19/22 07:00 64 01/19/22 03:32 36.7 C 80 18 106/57 L 95 PG Care Time/CCT Total # of Minutes Spent Total Time Spent with Patient: Total time spent is greater than 50% in coordination of care (as documented) at patient's floor/unit and/or counseling patient: Coding Level of Care Code 85570 Subseq Hosp Care Lvl 3 Diagnoses Anemia D64.9 Acute upper GI bleed K92.2 Nonalcoholic fatty liver disease K76.0 Hepatic encephalopathy K76.82 Thrombocytopenia D69.6 Acute kidney injury superimposed on CKD N17.9; N18.9 GAVE (gastric antral vascular ectasia) K31.819 Cirrhosis K74.69 Hepatic cirrhosis type: other cirrhosis Hypercholesterolemia E78.00 Gout, joint M10.9 BPH with obstruction/lower urinary tract symptoms N40.1; N13.8 Fall W19.XXXA (1) Cirrhosis Hepatic cirrhosis type: other cirrhosis Qualified Code(s): K74.69 - Other cirrhosis of liver
[2022-01-19 14:53] LABS: Hematocrit (blood only) 21.5 % (40.1-51.0); Hemoglobin 7.1 g/dl (14.0-18.0); Mean Platelet Volume 10.1 fL (9.4-12.4); Platelet Count 42 K/uL (130-400); RDW Standard Deviation 93.4 fL (36.4-46.3); Red Blood Count 2.15 M/uL (4.63-6.08); White Blood Count 6.41 K/ul (4.8-10.8)
[2022-01-19] MEDS: PANTOprazole 40 MG TAB PO SCH (21:09)
[2022-01-20] MEDS: FUROSEMIDE 40 MG TAB PO SCH (09:56)
[2022-01-20] MEDS: LACTULOSE SYRUP 20 GM/30 ML UDC PO SCH ×2 (09:57→12:35)
[2022-01-20] MEDS: PANTOprazole 40 MG TAB PO SCH ×2 (10:00→21:24)
[2022-01-20] MEDS: rifAXIMin 550 MG TABLET PO SCH ×2 (10:00→21:24)
--- NOTE | 2022-01-20 16:49 | Hospitalist Progress Note ---
Date of Service January 20, 2022 Assessment & Plan (1) Anemia: Plan: 66 yo male with history of LIU-cirrhosis s/p TIPS in 2019 presenting with fall from home. Patient denies loss of consciousness or head trauma. Fall most likely secondary to patient's chronic medical conditions, decompensation and anemia. No pain. Acute blood loss anemia in setting of chronic anemia Hgb=5.7 on arrival TAE=350.2. secondary to GI losses and possibly hemolysis- patient with history of gastric varices as well as GAVE. Possibly post-TIPS hemolysis given marked elevation in Tbili as well but LDH normal -B12 and folate normal -transfused PRBCs 3 units EGD cancelled as pt does not want procedure and no further bleeding -pt and report they might want a repeat CBC at some point to keep his blood count up enough to sustain him till get can get out of the hospital to hospice- not today Now on STRAP BUCKLER (2) Acute upper GI bleed: Plan: with hematemesis on 01/17, small amount, likely 2/2 GAVE and not from variceal bleed remains HD stable hgb up to 8.0 after 3 units PRBCs on 01/16 and 01/17 -received Protonix 40mg IV bid and transition to po now -EGD canceled nausea persists intermittently--> continue antiemetics prn and would give po Zofran ODT on discharge adv diet as tolerated-remain at full liquids for now as pt does not want solid foods (3) Nonalcoholic fatty liver disease: Plan: Patient with cirrhosis secondary to LIU, s/p TIPS. Concern for decompensation - patient with anemia, thrombocytopenia hyponatremia, BIA,, Tbili of 10.4 (increased from 6.4 in August 2021), RX=187. Albumin is stable at 2.1. No ascites present on exam. Per , patient is no longer being considered for transplant due to progression of weakness and debility MELD score 34, mortality risk 56% next 3 months-d/w patient and Now pursuing hospice I discussed with Transplant Hepatology Dr. Burris at [facility] on phone 01/17--> not candidate for transplant eval and no need for transfer RUQUS: cirrhotic liver with TIPS shunt, small volume ascites, left pleural effusion GI consultation appreciated Palliative care consulted. no need to follow labs as is going on hospice Now on STRAP BUCKLER (4) Hepatic encephalopathy: Plan: improving since admission, moving bowels explosively at times continue lactulose as per family request even on STRAP BUCKLER, but pt requests reduction in dose to once daily continue rifaximin for now (5) Thrombocytopenia: Plan: plts low at 36 given ongoing UGI bleeding initially, transfused platelets x 1 pack B12 checked and normal no further labs draws (6) Acute kidney injury superimposed on CKD: Plan: -Patient with BIA on CKD. BUN of 33 and Cr of 2.43 which is increased from 16 and 1.59, respectively on 09/26/21. Patient was recently placed on increased dose of Lasix, ?pre-renal. Concern for hepatorenal syndrome as well -Check UA--> granular casts, hyaline casts, 1+ bili, trace leuk esterase -Check urine Na < 10, Cr 106, and urea pending -panel builder slight improvement after volume expansion with PRBCs--> panel builder down to 2.07 -Avoid nephrotoxic agents -Renal dosing where needed -no further lab draws Frederick in place for retention-remain in place on STRAP BUCKLER (7) GAVE (gastric antral vascular ectasia): Plan: with recent APC 12/20/21 likely cause of current nausea and UGI bleeding now reoslved (8) Cirrhosis: Plan: 2/ LIU now moved to inactive status on liver transplant list too deconditioned to tolerate transplant Appreciate Palliative Consult Now pursuing hospice GI started Coreg but will dc now as going on hospice continue lasix for now for significant peripheral edema -he is now agreeable to taking this to help with SOB and peripheral edema (9) Hypercholesterolemia: Plan: Chronic -discontinue Lovastatin 40mg po daily on STRAP BUCKLER (10) Gout, joint: Plan: Chronic discontinue Allopurinol on STRAP BUCKLER (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 Initially refused his lasix because he thought that was giving him diarrhea but I told him it would not do tht and that the lactulose was causing the diarrhea. He is agreeable to taking lasix to help reduce swelling but would like the lactulose reduced. Also his notes he is having some trouble getting a deep breath. No blood in stool. Still some occasional nausea and still wants to remain on a liquids diet. Review of Systems Review of Systems: All systems reviewed & are unremarkable except as noted in HPI & below Physical Exam Constitutional: WD/WN, vitals as above Eyes: + scleral abnormality (icterus) Neck: trachea midline, no thyromegaly Respiratory: normal respiratory effort; no cough Auscultation: + crackles (bibasilar); no rhonchi and no wheezes Cardiovascular: Rate/Rhythm: regular rate and regular rhythm Extremities: + edema (4+ pitting edema to this thighs bilat) Chest (Breasts): Chest: normal inspection of chest Gastrointestinal (Abdomen): Inspection/Auscultation: normal bowel sounds; abdomen not distended Percussion/Palpation: abdomen soft; abdomen nontender Musculoskeletal: Extremities: no cyanosis and no clubbing Skin: + jaundice Neurologic: moves all extremities and awake; no focal motor deficits Psychiatric: Orientation: alert, oriented x 3 and cooperative Genitourinary: Frederick in place with dark yellow urine Results & Data Results & Data ([facility]) Vital Signs (Past 12 Hours) Vital Signs O2 Del Method 01/20/22 09:30 Room Air PG Care Time/CCT Total # of Minutes Spent Total Time Spent with Patient: Total time spent is greater than 50% in coordination of care (as documented) at patient's floor/unit and/or counseling patient: Coding Level of Care Code 95664 Subseq Hosp Care Lvl 1 Diagnoses Anemia D64.9 Acute upper GI bleed K92.2 Nonalcoholic fatty liver disease K76.0 Hepatic encephalopathy K76.82 Thrombocytopenia D69.6 Acute kidney injury superimposed on CKD N17.9; N18.9 GAVE (gastric antral vascular ectasia) K31.819 Cirrhosis K74.69 Hepatic cirrhosis type: other cirrhosis Hypercholesterolemia E78.00 Gout, joint M10.9 BPH with obstruction/lower urinary tract symptoms N40.1; N13.8 Fall W19.XXXA (1) Cirrhosis Hepatic cirrhosis type: other cirrhosis Qualified Code(s): K74.69 - Other cirrhosis of liver
[2022-01-21] MEDS: FUROSEMIDE 40 MG TAB PO SCH (10:04)
[2022-01-21] MEDS: PANTOprazole 40 MG TAB PO SCH ×2 (10:04→21:40)
[2022-01-21] MEDS: LACTULOSE SYRUP 20 GM/30 ML UDC PO SCH (10:05)
[2022-01-21] MEDS: rifAXIMin 550 MG TABLET PO SCH ×2 (10:05→21:40)
--- NOTE | 2022-01-21 12:41 | Hospitalist Progress Note ---
Date of Service January 21, 2022 Assessment & Plan (1) Anemia: Plan: 66 yo male with history of LIU-cirrhosis s/p TIPS in 2019 presenting with fall from home. Patient denies loss of consciousness or head trauma. Fall most likely secondary to patient's chronic medical conditions, decompensation and anemia. No pain. Acute blood loss anemia in setting of chronic anemia Hgb=5.7 on arrival ARH=764.2. secondary to GI losses and possibly hemolysis- patient with history of gastric varices as well as GAVE. 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 Concern for decompensation - patient with anemia, thrombocytopenia hyponatremia, BIA,, Tbili of 10.4 (increased from 6.4 in August 2021), OE=183. Albumin is stable at 2.1. No ascites present on exam. Per , patient is no longer being considered for transplant due to progression of weakness and debility. I confirmed this with his recycle coordinator that he is on the inactive list MELD score 34, mortality risk 56% next 3 months-d/w patient and Now pursuing hospice I discussed with Transplant Hepatology Dr. Burris at [facility] on phone 01/17--> not candidate for transplant eval and no need for transfer RUQUS: cirrhotic liver with TIPS shunt, small volume ascites, left pleural effusion GI consultation appreciated Palliative care consulted. no need to follow labs as is going on hospice Now on HIRED WORKER (4) Hepatic encephalopathy: Plan: improving since admission, moving bowels explosively at times continue lactulose as per family request even on HIRED WORKER, but pt requests reduction in dose to once daily continue rifaximin for now (5) Thrombocytopenia: Plan: plts low at 36 given ongoing UGI bleeding initially, transfused platelets x 1 pack B12 checked and normal no further lab draws (6) Acute kidney injury superimposed on CKD: Plan: -Patient with BIA on CKD. BUN of 33 and Cr of 2.43 which is increased from 16 and 1.59, respectively on 09/26/21. Patient was recently placed on increased dose of Lasix, ?pre-renal. Concern for hepatorenal syndrome as well -Check UA--> granular casts, hyaline casts, 1+ bili, trace leuk esterase -Check urine Na < 10, Cr 106, and urea pending -top distribution executive slight improvement after volume expansion with PRBCs--> top distribution executive down to 2.07 -Avoid nephrotoxic agents -Renal dosing where needed -no further lab draws Frederick in place for retention-remain in place on HIRED WORKER -continue lasix for edema and SOB for comfort (7) GAVE (gastric antral vascular ectasia): Plan: with recent APC 12/20/21 likely cause of current nausea and UGI bleeding now resolved (8) Cirrhosis: Plan: 2/2 LIU now moved to inactive status on liver transplant list too deconditioned to tolerate transplant Appreciate Palliative Consult Now pursuing hospice GI started Coreg but will dc now as going on hospice continue lasix for now for significant peripheral edema and dyspnea (9) Hypercholesterolemia: Plan: Chronic -discontinue Lovastatin 40mg po daily on HIRED WORKER (10) Gout, joint: Plan: Chronic discontinue Allopurinol on HIRED WORKER (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 No abd pain. No SOB today. Review of Systems Review of Systems: All systems reviewed & are unremarkable except as noted in HPI & below Physical Exam Constitutional: WD/WN, vitals as above + ill appearing; not lethargic Eyes: + scleral abnormality (icterus) Neck: trachea midline, no thyromegaly Respiratory: normal respiratory effort; no cough Cardiovascular: Extremities: + edema (4+ pitting edema to this thighs bilat) Chest (Breasts): Chest: normal inspection of chest Musculoskeletal: Extremities: no cyanosis and no clubbing Skin: + jaundice Neurologic: moves all extremities and awake; no focal motor deficits Psychiatric: Orientation: alert, oriented x 3 and cooperative Genitourinary: Frederick in place with dark yellow urine PG Care Time/CCT Total # of Minutes Spent Total Time Spent with Patient: Total time spent is greater than 50% in coordination of care (as documented) at patient's floor/unit and/or counseling patient: Coding Level of Care Code 64481 Subseq Hosp Care Lvl 1 Diagnoses Anemia D64.9 Acute upper GI bleed K92.2 Nonalcoholic fatty liver disease K76.0 Hepatic encephalopathy K76.82 Thrombocytopenia D69.6 Acute kidney injury superimposed on CKD N17.9; N18.9 GAVE (gastric antral vascular ectasia) K31.819 Cirrhosis K74.69 Hepatic cirrhosis type: other cirrhosis Hypercholesterolemia E78.00 Gout, joint M10.9 BPH with obstruction/lower urinary tract symptoms N40.1; N13.8 Fall W19.XXXA (1) Cirrhosis Hepatic cirrhosis type: other cirrhosis Qualified Code(s): K74.69 - Other cirrhosis of liver
[2022-01-22] MEDS: ONDANSETRON INJ 2 MG/ML 2 ML VIAL IV PRN ×2 (02:37→11:52)
[2022-01-22] MEDS: LACTULOSE SYRUP 20 GM/30 ML UDC PO SCH (09:08)
[2022-01-22] MEDS: rifAXIMin 550 MG TABLET PO SCH ×2 (09:08→20:56)
[2022-01-22] MEDS: PANTOprazole 40 MG TAB PO SCH ×2 (09:08→20:56)
[2022-01-22] MEDS: FUROSEMIDE 40 MG TAB PO SCH (09:08)
--- NOTE | 2022-01-22 18:55 | Hospitalist Progress Note ---
Date of Service January 22, 2022 Assessment & Plan (1) Anemia: Plan: 66 yo male with history of LIU-cirrhosis s/p TIPS in 2019 presenting with fall from home. Patient denies loss of consciousness or head trauma. Fall most likely secondary to patient's chronic medical conditions, decompensation and anemia. No pain. Acute blood loss anemia in setting of chronic anemia Hgb=5.7 on arrival JXE=079.2. secondary to GI losses and possibly hemolysis- patient with history of gastric varices as well as GAVE. 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 Concern for decompensation - patient with anemia, thrombocytopenia hyponatremia, BIA,, Tbili of 10.4 (increased from 6.4 in August 2021), UV=916. Albumin is stable at 2.1. No ascites present on exam. Per , patient is no longer being considered for transplant due to progression of weakness and debility. I confirmed this with his clinical administrative coordinator that he is on the inactive list MELD score 34, mortality risk 56% next 3 months-d/w patient and Now pursuing hospice I discussed with Transplant Hepatology Dr. Burris at [facility] on phone 01/17--> not candidate for transplant eval and no need for transfer RUQUS: cirrhotic liver with TIPS shunt, small volume ascites, left pleural effusion GI consultation appreciated Palliative care consulted. no need to follow labs as is going on hospice Now on [employer] SOURCE COLLECTION MANAGER (4) Hepatic encephalopathy: Plan: improving since admission, moving bowels explosively at times continue lactulose as per family request even on [employer] SOURCE COLLECTION MANAGER, but pt requests reduction in dose to once daily continue rifaximin for now (5) Thrombocytopenia: Plan: plts low at 36 given ongoing UGI bleeding initially, transfused platelets x 1 pack B12 checked and normal no further lab draws (6) Acute kidney injury superimposed on CKD: Plan: -Patient with BIA on CKD. BUN of 33 and Cr of 2.43 which is increased from 16 and 1.59, respectively on 09/26/21. Patient was recently placed on increased dose of Lasix, ?pre-renal. Concern for hepatorenal syndrome as well -Check UA--> granular casts, hyaline casts, 1+ bili, trace leuk esterase -Check urine Na < 10, Cr 106, and urea pending -director of diagnostic imaging slight improvement after volume expansion with PRBCs--> director of diagnostic imaging down to 2.07 -Avoid nephrotoxic agents -Renal dosing where needed -no further lab draws Frederick in place for retention-remain in place on ALL SOURCE COLLECTION MANAGER -continue lasix for edema and SOB for comfort (7) GAVE (gastric antral vascular ectasia): Plan: with recent APC 12/20/21 likely cause of current nausea and UGI bleeding now resolved (8) Cirrhosis: Plan: 2/2 LIU now moved to inactive status on liver transplant list too deconditioned to tolerate transplant Appreciate Palliative Consult Now pursuing hospice GI started Coreg but will dc now as going on hospice continue lasix for now for significant peripheral edema and dyspnea (9) Hypercholesterolemia: Plan: Chronic -discontinue Lovastatin 40mg po daily on [employer] SOURCE COLLECTION MANAGER (10) Gout, joint: Plan: Chronic discontinue Allopurinol on [employer] SOURCE COLLECTION MANAGER (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: Plan: had urinary retention Frederick placed (12) Fall: Plan: 2/2 HE, weakness from anemia -Fall precautions no PT needed, going on hospice Plan Dipos-continued stay while awaiting placement with hospice, transitioned to ALL SOURCE COLLECTION MANAGER on 01/19 plan now for NH with hospice-multiple referrals made by Admission and Anticipated Discharge Date Admission Date: January 16, 2022 Subjective Had some nausea this AM but then ate meals after having a large BM Feels tired Review of Systems Review of Systems: All systems reviewed & are unremarkable except as noted in HPI & below Physical Exam Constitutional: + ill appearing Eyes: + scleral abnormality (icterus) Neck: trachea midline, no thyromegaly Respiratory: normal respiratory effort; no cough Cardiovascular: Extremities: + edema (4+ pitting edema to this thighs bilat) Chest (Breasts): Chest: normal inspection of chest Musculoskeletal: Extremities: no cyanosis and no clubbing Skin: + jaundice Neurologic: moves all extremities and awake; no focal motor deficits Psychiatric: Orientation: alert, oriented to person, oriented to place and cooperative Results & Data Results & [facility] ([facility]) Vital Signs (Past 12 Hours) Vital Signs O2 Del Method 01/22/22 07:55 Room Air PG Care Time/CCT Total # of Minutes Spent Total Time Spent with Patient: Total time spent is greater than 50% in coordination of care (as documented) at patient's floor/unit and/or counseling patient: Coding Level of Care Code 12826 Subseq Hosp Care Lvl 1 Diagnoses Anemia D64.9 Acute upper GI bleed K92.2 Nonalcoholic fatty liver disease K76.0 Hepatic encephalopathy K76.82 Thrombocytopenia D69.6 Acute kidney injury superimposed on CKD N17.9; N18.9 GAVE (gastric antral vascular ectasia) K31.819 Cirrhosis K74.69 Hepatic cirrhosis type: other cirrhosis Hypercholesterolemia E78.00 Gout, joint M10.9 BPH with obstruction/lower urinary tract symptoms N40.1; N13.8 Fall W19.XXXA (1) Cirrhosis Hepatic cirrhosis type: other cirrhosis Qualified Code(s): K74.69 - Other cirrhosis of liver
[2022-01-23] MEDS: FUROSEMIDE 40 MG TAB PO SCH (08:51)
[2022-01-23] MEDS: PANTOprazole 40 MG TAB PO SCH ×2 (08:51→20:26)
[2022-01-23] MEDS: rifAXIMin 550 MG TABLET PO SCH ×2 (08:51→20:25)
[2022-01-23] MEDS: LACTULOSE SYRUP 20 GM/30 ML UDC PO SCH (08:51)
[2022-01-23] MEDS ORDERED: MoRPHine SULFATE 2 MG/ML CARP IV STA (15:39)
[2022-01-23] MEDS ORDERED: MoRPHine SULFATE 2 MG/ML CARP IV PRN (15:39)
--- NOTE | 2022-01-23 18:18 | Hospitalist Progress Note ---
Date of Service January 23, 2022 Assessment & Plan (1) Palliative care encounter: Plan: transitioned to SPORT INTERN on 01/19 add morphine 2mg IV prn -- he appears uncomfortable today cont other comfort care measures (2) End stage liver disease: (3) Anemia: Plan: Acute blood loss anemia in setting of chronic anemia - acute blood loss likely from upper GI bleeding. No further Rx - Now on comfort measures only (4) Acute upper GI bleed: Plan: with hematemesis on 01/17, small amount, likely 2/2 GAVE and not from variceal bleed s/p 3 units PRBCs on 01/16 and 01/17 no further Rx or work-up -- transitioned to comfort care pathway (5) Nonalcoholic fatty liver disease: Plan: Patient with cirrhosis secondary to LIU, s/p TIPS 2019. Previous attending - Dr Garcia - spoke with Transplant Hepatology Dr. Burris at [facility] on phone 01/17--> not candidate for transplant eval and no need for transfer. Transitioned to comfort measures this admission and he continues to decline. (6) Hepatic encephalopathy: Plan: Suspect this is worsening given his ongoing lethargy and confusion. No Rx -- comfort measures only. (7) Thrombocytopenia: Plan: 2nd to ESLD (8) Acute kidney injury superimposed on CKD: (9) GAVE (gastric antral vascular ectasia): Plan: with recent APC 12/20/21 likely cause of recurrent nausea and UGI bleeding earlier this admission no Rx (10) Cirrhosis: Plan: 2/2 LIU now moved to inactive status on liver transplant list too deconditioned to tolerate transplant (11) Hypercholesterolemia: Plan: discontinued Lovastatin (12) Gout, joint: Plan: Chronic discontinue Allopurinol on SPORT INTERN no flare at this time (13) BPH with obstruction/lower urinary tract symptoms: Plan: ram (14) Fall: Plan: present on admission likely due to weakness in setting of advanced liver disease and hepatic encephalopathy (15) CKD (chronic kidney disease), stage III: Plan transitioned to SPORT INTERN on 01/19 plan now for SNF with hospice-multiple referrals made by CM however, I am concerned he may not make it to SNF given his continued decline will have better sense of such tomorrow updated by phone this evening Admission and Anticipated Discharge Date Admission Date: January 16, 2022 Subjective patient moaning during my visit trying to shift in bed as if he is uncomfortable very lethargic he was only able to tell me he was in "[place]" otherwise can't offer any meaningful history or ROS Review of Systems Review of Systems: Unobtainable due to cognitive status Physical Exam Physical Exam: gen - obese, appears mildly uncomfortable, lethargic/altered skin - jaundice from head to groin mouth - MM dry heart - RRR, s1 s2 lungs - CTA b/l abd - soft NT ext - severe edema from feet to thigh, cool to touch psych - oriented to person only; lethargic Results & Data Results & Data ([facility]) Vital Signs (Past 12 Hours) Vital Signs O2 Del Method 01/23/22 09:00 Room Air PG Care Time/CCT Total # of Minutes Spent Total Time Spent with Patient: Total time spent is greater than 50% in coordination of care (as documented) at patient's floor/unit and/or counseling patient: Coding Level of Care Code 42532 Subseq Hosp Care Lvl 2 Diagnoses Palliative care encounter Z51.5 End stage liver disease K72.10 Anemia D64.9 Acute upper GI bleed K92.2 Nonalcoholic fatty liver disease K76.0 Hepatic encephalopathy K76.82 Thrombocytopenia D69.6 Acute kidney injury superimposed on CKD N17.9; N18.9 GAVE (gastric antral vascular ectasia) K31.819 Cirrhosis K74.69 Hepatic cirrhosis type: other cirrhosis Hypercholesterolemia E78.00 Gout, joint M10.9 BPH with obstruction/lower urinary tract symptoms N40.1; N13.8 Fall W19.XXXA CKD (chronic kidney disease), stage III N18.30 (1) Cirrhosis Hepatic cirrhosis type: other cirrhosis Qualified Code(s): K74.69 - Other cirrhosis of liver
[2022-01-24] MEDS: PANTOprazole 40 MG TAB PO SCH (09:39)
[2022-01-24] MEDS: LACTULOSE SYRUP 20 GM/30 ML UDC PO SCH (09:39)
[2022-01-24] MEDS: FUROSEMIDE 40 MG TAB PO SCH (09:39)
[2022-01-24] MEDS: rifAXIMin 550 MG TABLET PO SCH (09:40)
--- NOTE | 2022-01-24 13:04 | Death Pronouncement Note ---
Date of Service January 24, 2022 Pronouncement Note Admission Date January 16, 2022 Date and Time of Date of : 01/24/22 Time of : 12:29 Preliminary Cause of (1) End stage liver disease: Additional Data Confirmation of : no pulse, no respirations, no heart sounds and pupils fixed and dilated Pronouncement Performed By: Attending Physician Family: at bedside Additional persons at bedside: special education resource teacher Attending/PCP notified?: Yes Attending physician: Kushal Macario Was code activated?: No Autopsy requested?: No final cigar and box examiner notified?: No Coding Level of Care Code None Diagnoses End stage liver disease K72.10
--- NOTE | 2022-01-24 13:05 | Discharge Summary ---
Date of Service Admission Date January 16, 2022 Date and Time of Date of : 01/24/22 Time of : 12:29pm Admission HPI Per Admitting Provider Arnoldo Colon is a 66yo male with history of LIU Cirrhosis - history of variceal hemorrhage in 2020, history of TIPS procedure in 2019. 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 Patient follows with [facility]. Per , he was previously on the transplant list at [facility] which is no longer a valid program. He was being considered for transplant at [facility] but was denied due to his progressive weakness. states he is no longer being considered for transplant. Patient presents today after a fall at home. He got up to use the bathroom and tipped over while using his walker. Patient denies head trauma or loss of consciousness. No acute pain. He reports he was unable to get up due to weakness therefore EMS was called. Patient reports that he "feels crappy" all the time. He denies fever, chills, cough, chest pain, palpitations, abdominal pain, nausea, vomiting, diarrhea. He does have persistent and progressive SOB as well as bilateral LE edema. He denies melena/hematochezia or hematuria. He is having a difficult time urinating. Per , patient was seen by PCP yesterday AM and was told that his Hgb was 7 and his K was high. He was encouraged to come to the ER then but did not. Patient has had progressive bilateral LE edema. He was previously on Lasix 40mg po daily which was increased to 80mg daily on 01/11/22 - 01/14/22 then back to 40mg daily on 01/15/22 In the ER patient afebrile, HD stable, NAD. Principal Diagnosis 1. Hepatic encephalopathy 2. End-stage liver disease / LIU cirrhosis 3. Acute kidney injury - suspected hepatorenal syndrome 4. Acute blood loss anemia 2nd to probable upper GI bleeding Discharge Exam at time of - pupils fixed/dilated; no audible heart tones; no spontaneous respiratory effort; no response to pain or voice Discharge Data Allergies Allergy/AdvReac Type Severity Reaction Status Date / Time simvastatin AdvReac Unknown Gastrointestinal Verified 01/11/22 14:36 Upset tramadol AdvReac Unknown dizzy Verified 01/11/22 14:36 Consultations Gastroenterology Routine Palliative Care Procedures Performed 3 units PRBCs 1 unit platelets Ordered Studies Chest X-Ray 01/16/22 02:46 XR chest 1V portable HISTORY: 66 years-old Male Dyspnea acute shortness of breath. COMPARISON: Chest radiograph 10/02/2021 TECHNIQUE: AP view of the chest FINDINGS: Cardiac silhouette is enlarged. No pneumothorax. Pulmonary vascular congestion with interstitial coarsening. Moderate left pleural effusion with left basilar consolidation/volume loss. Degenerative changes of the shoulders and spine. IMPRESSION: 1. Cardiomegaly with pulmonary edema. 2. Moderate left pleural effusion with left basilar consolidation. ACT 112: Negative or not required by law. The above report was generated using voice recognition software. It may contain grammatical, syntax or spelling errors. Electronically signed by: Navi Lindsey M.D. 01/16/2022 8:13 AM Liver Ultrasound 01/16/22 08:57 US liver HISTORY: 66 years-old Male Abnormal LFTs elevated LFTs in a patient with prior TIPS procedure and cirrhosis COMPARISON: Abdominal ultrasound 02/17/2020 TECHNIQUE: Multiple real-time sonographic images of the right upper quadrant abdomen were obtained assessing grayscale appearance, color and spectral flow FINDINGS: Limited study secondary to patient body habitus and condition. The pancreas is obscured by bowel gas. The liver measures 10.9 cm in length with cirrhotic morphology. No hepatic mass identified. Patent tips shunt. Peak systolic velocities measuring up to 177 cm/s. Small volume of upper abdominal ascites. The visualized gallbladder is unremarkable without cholelithiasis identified. Normal common bile duct, 7 mm. The right kidney is not diagnostically visualized. Left pleural effusion. IMPRESSION: 1. Limited exam as above. 2. Cirrhotic liver with patent TIPS shunt. 3. Small volume ascites with left pleural effusion. ACT 112: Negative or not required by law. The above report was generated using voice recognition software. It may contain grammatical, syntax or spelling errors. Electronically signed by: Navi Lindsey M.D. 01/16/2022 11:49 AM Hospital Course (1) End stage liver disease: The patient was admitted after suffering a fall at home in the setting of severe, progressive weakness. He was markedly anemic and had severe thrombocytopenia at time of admission. Ammonia level was >100. Creatinine was 2.3. Baseline creatinine was 1.5. Total bilirubin was >10. On 01/17 he had hematemesis. [facility] gastroenterology was consulted but patient declined EGD. He did receive 3 units of PRBCs and 1 unit of platelets while hospitalized. Palliative care discussions were held with the patient and his , and on 01/19 he opted for a comfort care pathway in light of his worsening status and severe, end-stage liver disease. Over the next few days he became increasingly more confused and then lethargic. He became increasingly more jaundiced. In the 24 hours prior to his he developed obtundation. Suspect that his acute/chronic liver failure, hepatic encephalopathy, and probable development of hepatorenal syndrome were the primary causes of his passing. On 01/24/22 he passed peacefully in the presence of his . (2) Hepatic encephalopathy: (3) Nonalcoholic steatohepatitis: (4) Acute kidney injury superimposed on CKD: (5) Hepatorenal syndrome: (6) Acute upper GI bleed: (7) Acute blood loss anemia: (8) Thrombocytopenia: (9) GAVE (gastric antral vascular ectasia): (10) Fall: (11) Pancytopenia: (12) Diabetes mellitus: (13) BPH with obstruction/lower urinary tract symptoms: (14) Sleep apnea: Total Time Total Time Spent Total Time Spent (In Minutes): 25 Discharge Plan Discharge Items Patient Disposition: Other Date/Time: 01/24/22 12:29 Coding Level of Care Code D/C DAY MANAGEMENT <30 MINS Diagnoses End stage liver disease K72.10 Hepatic encephalopathy K76.82 Nonalcoholic steatohepatitis K75.81 Acute kidney injury superimposed on CKD N17.9; N18.9 Hepatorenal syndrome K76.7 Acute upper GI bleed K92.2 Acute blood loss anemia D62 Thrombocytopenia D69.6 GAVE (gastric antral vascular ectasia) K31.819 Fall W19.XXXA Pancytopenia D61.818 Diabetes mellitus E11.9 Diabetes mellitus type: type 2 Diabetes mellitus alf insulin use: without alf use Diabetes mellitus complication status: without complication BPH with obstruction/lower urinary tract symptoms N40.1; N13.8 Sleep apnea G47.30
== END 2022-01-24 16:29 | disposition expired | DRG 377 ==
LOC: ED 01:17 → SUATTDRO 05:51 → EDINP 05:51 → 1E 12:14 → 4W 01-18 18:13 → 3E 01-19 15:22